=== PATIENT | female | born 1960 | race Caucasian/White ===

== ENCOUNTER 2022-08-01 12:05 | Outpatient (REF) | payer OTHER, SELFPAY ==
--- NOTE | ~2022-08-01 | XR_ITS ---
EXAMINATION: XR KNEE, RIGHT CLINICAL INFORMATION: Right knee pain and swelling COMPARISON: None available. TECHNIQUE: Four views of the right knee. FINDINGS: Prosthetic components of the right total knee arthroplasty are appropriately aligned without periprosthetic fracture or lucency. No component migration. No joint effusion. XR/XR knee RT 4V IMPRESSION: Appropriate alignment of the right total knee arthroplasty without evidence of complications.
== END 2022-08-01 12:06 | disposition home or self-care (01) ==
LOC: HO.HMGCX 12:05
PROVIDERS: PCP Internal Medicine; Visit Provider Internal Medicine
DX: M25.561 Pain in right knee (principal)
CPT/HCPCS: 73564

== ENCOUNTER 2022-09-09 01:19 | Emergency (ER) | payer OTHER, SELFPAY ==
--- NOTE | ~2022-09-09 | XR_ITS ---
EXAMINATION: XR WRIST, LEFT CLINICAL INFORMATION: Acute left wrist pain COMPARISON: None available. TECHNIQUE: PA, lateral, and oblique views of the left wrist. FINDINGS: No fracture or dislocation. The carpal rows are well aligned. Joint spaces are maintained. Small osteophytes of the first carpometacarpal joint. Soft tissues appear unremarkable. XR/XR wrist LT min 3V IMPRESSION: Mild degenerative change at the first carpometacarpal joint.
[2022-09-09 01:38] VITALS: BP 121/65; PULSE 72; RESP 18; TEMP 36.7; O2SAT 98; BMI 35.5
[2022-09-09] MEDS: Sulfamethox/Trimeth 800/160 TABLET 1 TAB PO (01:50)
[2022-09-09] MEDS: Acetaminophen 325 MG TABLET 975 MG PO (01:50)
--- NOTE | 2022-09-09 01:58 | ED.EXTPRO ---
HPI - Extremity Problem General Chief complaint: Extremity Injury, Upper Stated complaint: Hand pain Time Seen by Provider: 09/09/22 01:23 Source: patient and family Mode of arrival: ambulatory Limitations: no limitations History of Present Illness HPI Narrative: 62-year-old female presents with left wrist pain. Pain started 3 days ago. Is on the volar aspect. The pain does not radiate. Worse with palpation and movement. There is no fall or injury. Patient was noted to have done extensive cleaning in her house prior to the swelling and redness that occurred. She has had no fevers or chills. Never had anything like this before. Denies a history of gout or pseudogout. Related Data Previous Rx's Medication Instructions Recorded sulfamethoxazole 800 1 tab PO Q12H #14 tabs 09/09/22 mg-trimethoprim 160 mg tablet (Bactrim DS) Allergies Allergy/AdvReac Type Severity Reaction Status Date / Time No Known Allergies Allergy Verified 09/09/22 01:44 Review of Systems Review of Systems: CONSTITUTIONAL: Denies weight loss, fever and chills. HEENT: Denies changes in vision and hearing. RESPIRATORY: Denies SOB and cough. CV: Denies palpitations no CP. GI: Denies abdominal pain, nausea, vomiting and diarrhea. : Denies dysuria and urinary frequency. MSK: + myalgia and joint pain. SKIN: Denies rash and pruritus. NEUROLOGICAL: Denies headache and syncope. PSYCHIATRIC: Denies recent changes in mood. Denies anxiety and depression. All other ROS are negative unless in HPI [facility] Social History Social History Alcohol intake: never Physical Exam Vital Signs: Vital Signs: Last Vital Signs Temp 98.1 F 09/09/22 01:38 Pulse 72 09/09/22 01:38 Resp 18 09/09/22 01:38 BP 121/65 09/09/22 01:38 Pulse Ox 98 09/09/22 01:38 O2 Del Method Room Air 09/09/22 01:38 BMI result Body Mass Index 35.5 GEN: Well developed, no acute distress, alert, oriented HEENT: Normocephalic, atraumatic, normal external ears, nose appears normal Eyes: Normal to appearance Neck: Supple, no lymphadenopathy Respiratory: Talks in complete sentences, no respiratory distress Extremities: No clubbing cyanosis or edema, left volar wrist and thenar eminence mild redness and swelling. There is no joint effusion patient has a slightly limited range of motion secondary to pain and discomfort. Neurologic: No focal neurologic deficits, cranial nerves 2-12 intact, gait normal Skin: No rash Course Course Course Narrative: Patient presents with acute left wrist pain. The x-ray was negative for fracture. There is no significant degenerative changes. Patient received Tylenol for pain, Bactrim for antibiotic. He will be discharged on antibiotics for possible cellulitis. She can follow up with primary care provider in 2-3 days. Medications Administered Discontinued Medications Generic Name Dose Route Start Last Admin Trade Name Freq PRN Reason Stop Dose Admin Acetaminophen 975 mg 09/09/22 01:41 09/09/22 01:50 Acetaminophen 325 Mg Tablet PO 09/09/22 01:42 975 mg ONCE ONE Administration Trimethoprim/Sulfamethoxazole 1 tab 09/09/22 01:41 09/09/22 01:50 Sulfamethox/Trimeth 800/160 Tablet PO 09/09/22 01:42 1 tab ONCE ONE Administration Medical Decision Making Medical Decision Making [facility] Narrative: Patient presents with acute left wrist pain. Examination revealed redness and swelling tenderness the volar aspect of the left wrist including the thenar eminence. There is no joint effusion. She had range of motion but was slightly limited to pain. She is neurovascular intact. Will obtain an x-ray to rule out any traumatic injury. Suspect cellulitis. Doubt septic arthritis, gout, pseudogout or other inflammatory arthropathies. Will provide patient with Tylenol, antibiotics and an x-ray. Differential Diagnosis Differential Diagnoses: The differential diagnosis associated with the presentation includes (See above) Independent Interpretation I performed an independent interpretation of an: Plain X-Ray (Left wrist no acute traumatic injury.) Independent Historian Clinical information obtained from an independent historian. History obtained from or confirmed by: Other (Family member) Prescription Management I considered prescription management with: Pain Medication Chronic Conditions Patient?s care impacted by: Diabetes Discharge Plan Discharge Clinical Impression: Acute wrist pain, Cellulitis Patient Disposition: Home, Self-Care Instructions: Wrist Injury (ED), Cellulitis (ED) Additional Instructions: Tylenol 1000 mg every 6 hours as needed for pain and/or ibuprofen 400 mg every 6 hours as needed for pain. Prescriptions: New sulfamethoxazole-trimethoprim [Bactrim DS] 800-160 mg tablet 1 tab PO Q12H Qty: 14 0RF Referrals: Ronni Herrera MD [Primary Care Provider] - 2 days
== END 2022-09-09 02:20 | disposition home or self-care (01) ==
PROVIDERS: Emergency Provider Emergency Medicine; PCP Internal Medicine
DX: M25.532 Pain in left wrist (principal); L03.114 Cellulitis of left upper limb
CPT/HCPCS: 29125; 73110; 99284

== ENCOUNTER 2022-10-19 09:13 | Outpatient (REF) | payer OTHER, SELFPAY ==
--- NOTE | ~2022-10-19 | FL_ITS ---
EXAMINATION: Barium swallow CLINICAL INFORMATION: Dysphagia COMPARISON: None. TECHNIQUE: Barium swallow was performed using thin and thick barium and effervescent granules. Barium tablet was also administered. FINDINGS: The swallowing mechanism is normal. No aspiration or penetration is seen. Esophageal motility is normal. There is gastroesophageal reflux. There is a small sliding-type hiatal hernia. There is mucosal irregularity of the distal esophagus questionable for mild esophagitis. No mass or stricture is seen. Barium tablet passed freely into the esophagus. FL/FL barium swallow with air IMPRESSION: Significant gastroesophageal reflux and question mild esophagitis of the distal esophagus. Small sliding-type hiatal hernia.
== END 2022-10-19 09:14 | disposition home or self-care (01) ==
LOC: HO.XRAY 09:13
PROVIDERS: PCP Internal Medicine; Visit Provider Internal Medicine
DX: K21.9 Gastro-esophageal reflux disease without esophagitis (principal)
CPT/HCPCS: 74221

== ENCOUNTER → 2022-10-19 09:15 | Outpatient (BNV) | payer OTHER, SELFPAY | PROVIDERS: PCP Internal Medicine; Visit Provider Radiology Diagnostic Radiology | DX: K21.9 Gastro-esophageal reflux disease without esophagitis (principal) | CPT/HCPCS: 74221 ==

== ENCOUNTER 2022-11-08 10:04 | Outpatient (REF) | payer OTHER, SELFPAY ==
[2022-11-08 12:09] LABS: Estimated Average Glucose 126 mg/dL
== END 2022-11-08 10:05 | disposition home or self-care (01) ==
LOC: HO.LAB 10:04
PROVIDERS: PCP Internal Medicine; Visit Provider Internal Medicine
DX: E11.9 Type 2 diabetes mellitus without complications (principal)
CPT/HCPCS: 36415; 83036

== ENCOUNTER 2023-02-21 09:05 | Outpatient (REF) | payer OTHER, SELFPAY ==
[2023-02-21 09:55] LABS: Estimated Average Glucose 128 mg/dL; Hemoglobin A1c % 6.1 % (<6.0)
== END 2023-02-21 09:06 | disposition home or self-care (01) ==
LOC: HO.LAB 09:05
PROVIDERS: PCP Internal Medicine; Visit Provider Internal Medicine
DX: E11.9 Type 2 diabetes mellitus without complications (principal)
CPT/HCPCS: 36415; 83036

== ENCOUNTER 2023-03-05 11:56 | Outpatient (REF) | payer OTHER, SELFPAY ==
--- NOTE | ~2023-03-05 | XR_ITS ---
EXAMINATION: XR SHOULDER, LEFT CLINICAL INFORMATION: Pain. COMPARISON: None available. TECHNIQUE: AP external rotation, Grashey, scapular Y, and axillary views of the left shoulder. FINDINGS: Bony alignment and mineralization are normal. The glenohumeral joint is intact and shows mild peripheral osteophyte formation. The acromioclavicular and coracoclavicular intervals are normal. A distal acromial undersurface osteophyte is seen, and there is cortical irregularity of the greater tuberosity of the proximal left humerus. No fracture or dislocation is seen. There is no abnormal soft tissue calcification or foreign body. No left pneumothorax is seen. XR/XR shoulder LT min 2V IMPRESSION: 1. There is mild osteoarthritic change of the left glenohumeral joint. 2. Findings suggest possible left rotator cuff impingement, without johan calcific tendinitis noted.
--- NOTE | ~2023-03-05 | XR_ITS ---
EXAMINATION: XR ELBOW, LEFT CLINICAL INFORMATION: Pain. COMPARISON: None available. TECHNIQUE: AP, lateral, and oblique views of the left elbow. FINDINGS: The bones and soft tissues are normal. No fracture or joint effusion. Alignment is anatomic. Joint spaces are maintained. XR/XR elbow LT 2V IMPRESSION: Normal left elbow.
== END 2023-03-05 11:57 | disposition home or self-care (01) ==
LOC: HO.XRAY 11:56
PROVIDERS: Visit Provider Internal Medicine
DX: M25.512 Pain in left shoulder (principal); M25.522 Pain in left elbow
CPT/HCPCS: 73030; 73070

== ENCOUNTER 2023-05-20 09:04 | Outpatient (AMB) | payer MEDICARE, MEDICAID, SELFPAY ==
--- NOTE | 2023-05-20 09:15 | MHC.OFFVIS ---
Intake Vital Signs 05/20/23 09:16 Height 4 ft 10 in Weight 189 lb BMI 39.5 Intake Visit Reasons: N/P Rotator Cuff impingement- Left Intake Note: Sharita 63 year old -- hand dominant female presents today as a new patient for an evaluation of left shoulder. Patient reports?pain and difficult when move or tried put hands up, started 3 months ago, pt tried Naproxen 500 mg for pain, patch lidocaine and no help with symptoms. 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 She currently states she has pain in her left shoulder which is aggravated at night and with movement and overhead reaching. She has tried naproxen and lidocaine patches which did not provide her any relief. She has not had any previous injury. She has a history of diabetes. Her last HbA1c was 6.1%. [facility] Family History Father Cancer of lung Social History (Updated 05/20/23 @ 09:24 by Felicita Santos MA) Household Members: Family Housing: Apartment Patient Tobacco Use Status: Never used Tobacco Review of Systems Const All systems reviewed & are unremarkable except as noted in HPI and below Physical Exam Vital Signs: BMI result Body Mass Index 39.5 Const General: cooperative, healthy appearing, comfortable, no acute distress, well developed and alert Orientation/consciousness: patient oriented x3 HEENT Head: Yes normal to inspection, Yes normocephalic and Yes atraumatic Eyes General: appearance normal, both eyes and all related structures Resp Effort & Inspection: normal respiratory effort and able to speak in complete sentences Cardio Rate: regular rate Peripheral pulses: Peripheral pulses 2+ throughout GI Palpation (GI): Soft to palpation Skin Lesions: no lesions Rashes: no rashes Neuro General: patient oriented x3 Extrem Other: Left shoulder normal to inspection. Tenderness over the bicipital groove and along the deltoid region of the shoulder. Forward flexion to 175, external rotation to 90, internal rotation to S1. 5/5 RTC strength. Negative Guan and cross body abduction. NVI. Office Procedures Joint Injection/Drain Joint Injection/Drain Primary Site: left shoulder Prep: site was prepped using aseptic technique, ethochloride spray was applied and injection warnings given Injected: 40 mg of, DepoMedrol, with 8 mL of, 1% plain lidocaine and in the subcromial space Approach Used: posterolateral Procedure: The patient tolerated the procedure well and there was some relief with the local anesthesia Coding 73139 - Glenohumeral/Tronchanteric Bursa/Intraarticular Procedure code (CPT) selection complete Results Reviewed Results Reviewed: xrays of the left shoulder 1. There is mild osteoarthritic change of the left glenohumeral joint. 2. Findings suggest possible left rotator cuff impingement, without johan calcific tendinitis noted. Assessment & Plan Assessment & Plan (1) Tendonitis of left rotator cuff: Code(s): M75.82 - Other shoulder lesions, left shoulder Plan We discussed options today which include steroid injection. They did consent to move forward with the left shoulder injection, which was tolerated well. I recommended rest, ice and elevation and OTC anti-inflammatories PRN for discomfort. We also discussed their diabetes and the effect the steroid can have on their blood glucose levels; therefore, they will continue to monitor these very closely over the next 72 hours. If there are any concerns, they should report to the ED immediately. Orders: Orders PT Evaluation and Treatment Today M75.82 - Other shoulder lesions, left shoulder Medications: Discontinued sulfamethoxazole-trimethoprim 800-160 mg (Bactrim DS) Discontinued Reason: Patient Completed Course 1 tab PO Q12H 14 tabs 0RF Patient Instructions: Scribed for Shelia Yip PA-C, by Beck Thompson senior medical transcriptionist, on 05/20/2023 at 9:30 AM ZEFERINO. Shelia Blue PA-C, have personally reviewed and agree with the information entered by the scribe. Coding Level of Care Code Est Pt Level 3 (22202) Diagnoses Tendonitis of left rotator cuff M75.82 CPT Codes Coding - Joint 7: 90710 - Glenohumeral/Tronchanteric Bursa/Intraarticular ([id number])
[2023-05-20 09:16] VITALS: BMI 39.5
== END 2023-05-20 13:21 | disposition home or self-care (01) ==
PROVIDERS: PCP Internal Medicine; Visit Provider Physician Assistant
DX: M75.82 Other shoulder lesions, left shoulder (principal)
CPT/HCPCS: 20610; 99214

== ENCOUNTER → 2023-05-20 09:04 | Outpatient (BNVA) | payer MEDICARE, MEDICAID, SELFPAY | PROVIDERS: PCP Internal Medicine; Visit Provider Physician Assistant | DX: M75.82 Other shoulder lesions, left shoulder (principal); E11.9 Type 2 diabetes mellitus without complications | CPT/HCPCS: 20610; 99212; J1010; J1020 ==

== ENCOUNTER 2023-06-19 07:00 | Outpatient (RCR) | payer MEDICARE, MEDICAID, OTHER, SELFPAY ==
--- NOTE | 2023-06-06 13:43 | MHC.PT.EP ---
[facility] [place] Office [place] Office [place] Office [address] [phone] F: [phone] F: [phone] F: [phone] F: [phone] Physical Therapy Plan of Care Date of Evaluation: 06/06/23 Date of Surgery: Diagnosis: LEFT SHOULDER LESION-> ROM, RTC PERISCAP STABILIZATION Assessment: 63 YO FEMALE REF TO PT FOR PROGRESSIVE Lt SH PAIN- SHE AMB W A W/WALKER DUE TO H/O Rt TKA. HER SON IS HER [employer] BOARDS, 35 HRS/WK- ASSISTING W DRESSING/MEALS/HOUSECHORES. THE Pt HAS DECR POST RC/ SCAP STRENGTH , LIMITED AROM Lt SHOULDER, DECR CERV AROM DUE TO SOFT TISSUE RESTRICTION, DCER POSTURAL AWARENESS, AND Lt JOHNNIE GH PAIN. SHE IS LIMITED W ADLs REQ PAULA UEs ASSIST OR OVERHEAD TASKS. SHE WOULD BENEFIT FROM PT TO ADDRESS THE ABOVE FINDINGS, DEV A HEP, AND IMPROVE FUNCTIONAL MOB. Frequency and Duration: The patient will be seen 2x WK x 4 WKS Short Term Goals: *DECR Lt SH / CERV PAIN TO 2-3/10 *Pt IMPROVE Lt SH AND CERV AROM *INITIATE HEP *ACTIVATE SCAP MM Fdc Goals: *Pt AND HER [employer] BO[employer]DS INDEP W HEP AND SELF-SX MGMT TECHN *Pt ACHIEVE WFL AROM Lt SH *Pt INCREASE FUNCTIONAL MOB YAKELIN EVIDENT W IMPROVED SPADI (117/130 AT EVAL) *IMPROVE Lt SH COMPLEX STRENGTH Treatment Plan: Modalities to reduce pain, spasms and effusion. Manual therapy to restore motion and function. Therapeutic exercise to improve strength and flexibility. Neuromuscular re-education for posture and balance. Therapeutic activities to return to functional activities of daily living. Electronically signed by: JUDITH GARZA,PT Please sign and return to therapist. Thank you for your referral.
== END 2023-09-04 15:19 | disposition home or self-care (01) ==
LOC: HO.PT 07:00
PROVIDERS: PCP Internal Medicine; Visit Provider Physician Assistant
DX: M75.82 Other shoulder lesions, left shoulder (principal)
CPT/HCPCS: 97140; 97162; 97530

== ENCOUNTER 2023-09-11 08:11 | Outpatient (AMB) | payer OTHER, SELFPAY ==
[2023-09-11 08:40] VITALS: BP 111/53; PULSE 68; BMI 40.9
--- NOTE | 2023-09-11 08:40 | A.OFFVIS_ITS ---
Vital Signs 3 09/11/23 08:40 Height 4 ft 10 in Weight 195 lb 12.328 oz BMI 40.9 BP 111/53 L Blood Pressure Location Lt brachial Position Sitting Pulse 68 Intake Visit Reasons: Epigastric pain Intake Note: Patient in office today as a new patient for epigastric pain. CC: Patient states that approximately 5 years ago she had EGD and Colonoscopy done in [place]. She states that at that time she was found to be positive to H pylori and was treated for it. She c/o burning and discomfort after eating certain foods. 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 She is referred by Ronni bond of [facility]. PMX Diabetes hypertension Peripheral neuropathy Unstable gait Chronic low back pain GERD * SURGICAL HISTORY Colonoscopy/EGD [place] 5 years ago Rt TKR * ALLERGIES:NKDA * MEDITECH LABS: No relevant labs BARIUM SWALLOW 10/19/22 FINDINGS: The swallowing mechanism is normal. No aspiration or penetration is seen. Esophageal motility is normal. There is gastroesophageal reflux. There is a small sliding-type hiatal hernia. There is mucosal irregularity of the distal esophagus questionable for mild esophagitis. No mass or stricture is seen. Barium tablet passed freely into the esophagus. FL/FL barium swallow with air IMPRESSION: Significant gastroesophageal reflux and question mild esophagitis of the distal esophagus. Small sliding-type hiatal hernia. TODAY'S VISIT Uzbek #kael Muller translates per pt request. The problem started about 7-8 mos ago. It it a burning sensation in the midline upper abdomen gastric area. It is worse first thing in the am. She is on pantoprazole 40mg bid and she takes the second dose at 5-6pm. It is intermittent and and occurs 1-2 times a week. She had an EGD/colonoscopy in [place] and she had HP gastritis and was txed with abx; but they did not check for eradication. She is moving her bowels well. she can not ID any medication changes, illness etc the preceded this. NO FHX of CRC or polyps or stomach cancer; she does not think they found polyps on her last colonoscopy. I suggest she try moving her last dose of pantoprazole to later in the night. Will get HP stool, general labs, US, GES. Consider if EGD repeat needed. ROV 8 weeks. [facility] Surgical History (Updated 09/11/23 @ 10:07 by BABAR Byrd) Status post total left knee replacement H/O colonoscopy History of esophagogastroduodenoscopy (EGD) Family History Father Cancer of lung Social History Household Members: Family Housing: Apartment Alcohol intake: former Comment: occasionally in the past Patient Tobacco Use Status: Never used Tobacco Review of Systems Const Denies fatigue, Denies fever(s), Denies night sweats, Denies poor appetite and Denies weight loss ENT Reports Normal hearing present, Denies dental pain, Denies dysphagia, Denies hearing loss, Denies mouth pain, Denies odynophagia, Denies throat swelling, Denies tongue swelling and Reports other (Dentition adequate) Card Reports no additional complaints Resp Reports no additional complaints GI Details: Reports abdominal pain, Denies melena, Denies bloating, Denies hematochezia, Denies constipation, Denies GI cramping, Denies dysphagia, Denies excessive flatus, Denies early satiety, Reports heartburn, Denies diarrhea, Denies nausea, Denies odynophagia, Denies vomiting and Denies hematemesis Musc Reports abnormal gait and Reports back pain Skin/Breast Denies pruritus, Denies lesions, Denies rash and Denies jaundice Neuro Reports Normal hearing present, Denies Abnormal speech present, Reports abnormal gait and Reports burning sensations Endo Denies fatigue Aller/Immun Denies throat swelling and Denies tongue swelling Physical Exam Vital Signs: Last Vital Signs Pulse 68 09/11/23 08:40 BP 111/53 L 09/11/23 08:40 BMI result Body Mass Index 40.9 Const General: cooperative, no acute distress, well developed and well groomed Nutritional Appearance: well nourished and obese morbidly obese Orientation/consciousness: oriented to person, oriented to place and oriented to time Limitations: language barrier and ambulation with walker HEENT Head: Yes normocephalic and Yes atraumatic Eyes General: appearance normal, both eyes and all related structures Pupils: Equal, round and reactive pupils present Neck Neck: Yes normal visual inspection and Yes no lymphadenopathy Thyroid: Thyroid normal Resp Effort & Inspection: normal respiratory effort and able to speak in complete sentences Auscultation: clear to auscultation bilaterally Cardio Rate: regular rate Rhythm: regular rhythm Heart sounds: Normal, physiologic split S2 sound present Peripheral pulses: radial pulses present and posterior tibial pulses present GI Inspection: No distended, Yes Abdominal panniculus present and Yes obesity Palpation (GI): Soft to palpation, nontender, no guarding, not rigid and No hepatosplenomegaly present Percussion: Yes normal to percussion Auscultation: normal bowel sounds Rectal Exam - Female: deferred Skin General skin exam: no rashes or lesions noted, turgor normal, skin not dry, no jaundice, No spider nevi and no striae Rashes: no rashes Nails: normal Neuro General: oriented to person, oriented to place and oriented to time Cranial nerves: Yes Equal, round and reactive pupils present and Yes Normal hearing present Speech: No Abnormal speech present Extrem General: Yes normal to inspection, No clubbing, No cyanosis and No edema Elbow/forearm/wrist images: 2 1. Surgical scar Psych Appearance: grossly normal and well kempt Mental Status: mental status grossly normal Speech and movement: Normal speech and movement present Affect: normal affect Attitude: cooperative Thought process: Normal thought process present and not confabulating Thought content: Normal thought content present Insight: Limited insight present (Psych) Judgement: Limited judgement present (Psych) Assessment & Plan Assessment & Plan (1) Upper abdominal pain: Code(s): R10.10 - Upper abdominal pain, unspecified Category: Medical (2) History of Helicobacter pylori infection: Code(s): Z86.19 - Personal history of other infectious and parasitic diseases Category: Medical (3) GERD (gastroesophageal reflux disease): Code(s): K21.9 - Gastro-esophageal reflux disease without esophagitis Category: Medical Plan Uzbek #kael Muller translates per pt request. The problem started about 7-8 mos ago. It it a burning sensation in the midline upper abdomen gastric area. It is worse first thing in the am. She is on pantoprazole 40mg bid and she takes the second dose at 5-6pm. It is intermittent and and occurs 1-2 times a week. I note that she has a prescription for Reglan 10 mg but she never took it because she ?read about side effects she did not like.? She is willing to retry this if necessary but her symptoms are not terribly convincing for severe gastroparesis. I think we should get a gastric emptying study before deciding on this. She had an EGD/colonoscopy in [place] and she had HP gastritis and was txed with abx; but they did not check for eradication. She is moving her bowels well. she can not ID any medication changes, illness etc the preceded this. NO FHX of CRC or polyps or stomach cancer; she does not think they found polyps on her last colonoscopy. I suggest she try moving her last dose of pantoprazole to later in the night. Will get HP stool, general labs, US, GES. Consider if EGD repeat needed. ROV 8 weeks. Orders: Orders 2 NM gastric emptying study Today R10.10 - Upper abdominal pain, unspecified Complete Blood Count Auto Diff Today R10.10 - Upper abdominal pain, unspecified US abdomen complete Today R10.10 - Upper abdominal pain, unspecified H pylori Ag Stool Today R10.10 - Upper abdominal pain, unspecified Comprehensive Met. Panel Today R10.10 - Upper abdominal pain, unspecified Coding Level of Care Code New Pt Level 3 (62079) Diagnoses Upper abdominal pain R10.10 History of Helicobacter pylori infection Z86.19 GERD (gastroesophageal reflux disease) K21.9
== END 2023-09-11 09:45 | disposition home or self-care (01) ==
PROVIDERS: PCP Internal Medicine; Visit Provider Nurse Practitioner
DX: R10.10 Upper abdominal pain, unspecified (principal); Z86.19 Personal history of other infectious and parasitic diseases; K21.9 Gastro-esophageal reflux disease without esophagitis
CPT/HCPCS: 99203

== ENCOUNTER → 2023-09-11 08:11 | Outpatient (BNVA) | payer OTHER, SELFPAY | PROVIDERS: PCP Internal Medicine; Visit Provider Nurse Practitioner | DX: R10.10 Upper abdominal pain, unspecified (principal); K21.9 Gastro-esophageal reflux disease without esophagitis; Z86.19 Personal history of other infectious and parasitic diseases | CPT/HCPCS: 99202 ==

== ENCOUNTER 2023-09-19 07:45 | Outpatient (REF) | payer OTHER, SELFPAY ==
--- NOTE | ~2023-09-19 | US_ITS ---
EXAMINATION: US ABDOMEN COMPLETE CLINICAL INFORMATION: Upper abdominal pain, unspecified. COMPARISON: None available. TECHNIQUE: Real-time imaging of the abdominal viscera. Severely limited visualization due to bowel gas and body habitus. FINDINGS: PANCREAS: Limited visualization of pancreatic tail and head. Imaged portion of pancreatic body is unremarkable. ABDOMINAL AORTA: The proximal, mid, and distal segments are normal in caliber. INFERIOR VENA CAVA: Visualized portions are normal. LIVER: Hepatomegaly, 17.2 cm. Increased hepatic parenchymal heterogeneity and echogenicity could be associated with hepatocellular disease/hepatic steatosis and substantially limits visualization. Correlation with liver function tests and clinical exam recommended to determine further management. GALLBLADDER: Sludge in the fundal aspect of the gallbladder. Cholelithiasis. No gallbladder wall thickening. COMMON BILE DUCT: Normal in caliber measuring 0.8 cm in diameter. RIGHT KIDNEY: No hydronephrosis. No renal calculi. Limited visualization. The kidney measures 9.9 cm in maximum dimension. LEFT KIDNEY: No hydronephrosis. No renal calculi. Limited visualization. The kidney measures 10.1 cm in maximum dimension. SPLEEN: Normal. The spleen measures 9.2 cm in maximum dimension. FREE FLUID: None. US/US abdomen complete IMPRESSION: 1. Hepatomegaly, 17.2 cm. Increased hepatic parenchymal heterogeneity and echogenicity could be associated with hepatocellular disease/hepatic steatosis and substantially limits visualization. Correlation with liver function tests and clinical exam recommended to determine further management. 2. Sludge in the fundal aspect of the gallbladder. Cholelithiasis. No gallbladder wall thickening.
== END 2023-09-19 07:46 | disposition home or self-care (01) ==
LOC: HO.US 07:45
PROVIDERS: PCP Internal Medicine; Visit Provider Nurse Practitioner
DX: R10.10 Upper abdominal pain, unspecified (principal)
CPT/HCPCS: 76700

== ENCOUNTER 2023-09-24 11:50 | Outpatient (REF) | payer OTHER, SELFPAY ==
[2023-09-24 12:07] LABS: MANUAL DIFF FLAG NO
[2023-09-24 12:48] LABS: Basophils Absolute Auto 0.1 X10*3/uL (0.0-0.2); Basophils Percent Auto 0.7 % (0-2); Eosinophils Absolute Auto 0.2 X10*3/uL (0.0-0.4); Hematocrit 38.6 % (37.0-47.0); Hemoglobin 12.8 g/dl (12.0-16.0); Imm Gran Abs Auto 0.01 X10*3/uL (0.00-0.03); Imm Gran Pct Auto 0.1 % (0.0-0.4); Lymphocytes Absolute Auto 2.1 X10*3/uL (1.2-4.9); Lymphocytes Percent Auto 25.5 % (20-40); Mean Corpuscular HGB Conc 33.2 g/dl (31.0-35.0); Mean Corpuscular Hemoglobin 30.5 pg (27.0-33.0); Mean Corpuscular Volume 91.9 fL (80.0-98.0); Mean Platelet Volume 10.5 fL (9.4-12.3); Monocytes Absolute Auto 0.5 X10*3/uL (0.1-1.2); Monocytes Percent Auto 5.9 % (2-11); Neutrophils Absolute Auto 5.3 x10*3/uL (2.0-8.3); Neutrophils Percent Auto 65.8 % (45-73); Platelet Count 275 X10*3/uL (160-400); Red Cell Distribution Width 12.5 % (11.0-16.0); White Blood Count 8.1 X10*3/uL (4.8-10.8)
[2023-09-24 14:13] LABS: Alanine Aminotransferase 15 U/L (0-31); Albumin Level 3.8 g/dL (3.5-5.0); Alkaline Phosphatase 86 U/L (39-117); Anion Gap 13 (12-20); Aspartate Amino Transferase 14 U/L (5-31); Bilirubin Total 0.4 mg/dL (0.0-1.0); Blood Urea Nitrogen 18 mg/dL (9-16); Calcium 9.6 mg/dL (8.4-10.2); Carbon Dioxide 25 mmol/L (22-29); Chloride 107 mmol/L (96-108); Estimated Glomerular Filt Rate > 60; Glucose Random 113 mg/dL (60-115); Potassium 3.7 mmol/L (3.3-5.1); Sodium 141 mmol/L (135-145); Total Protein 7.6 g/dL (6.5-8.0)
== END 2023-09-24 11:51 | disposition home or self-care (01) ==
LOC: HO.LAB 11:50
PROVIDERS: PCP Internal Medicine; Visit Provider Nurse Practitioner
DX: R10.10 Upper abdominal pain, unspecified (principal)
CPT/HCPCS: 36415; 80053; 85025

== ENCOUNTER 2023-10-03 13:54 | Outpatient (REF) | payer OTHER, SELFPAY | END 2023-10-03 13:55 | disposition home or self-care (01) | LOC: HO.LNP 13:54 | PROVIDERS: Visit Provider Nurse Practitioner | DX: R10.10 Upper abdominal pain, unspecified (principal) | CPT/HCPCS: 87338 ==

== ENCOUNTER 2023-11-12 09:00 | Outpatient (AMB) | payer OTHER, SELFPAY ==
[2023-11-12 09:09] VITALS: BP 120/69; PULSE 69; BMI 40.5
--- NOTE | 2023-11-12 09:09 | A.OFFVIS_ITS ---
Vital Signs 11/12/23 09:09 Height 4 ft 10 in Weight 194 lb 0.108 oz BMI 40.5 BP 120/69 Blood Pressure Location Lt brachial Position Sitting Pulse 69 Intake Visit Reasons: 8 weeks upper abd pain Intake Note: Radha presents to in office follow up of US and labs. CC: Patient reports doing well and now taking only one pantoprazole daily. She reports upset stomach with some drinks and foods. Denies other GI symptoms. 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: Yes Boat Outboard Engine Mechanic Name: son Accompanied by: Son Allergies No Known Allergies Allergy (Verified 11/12/23 09:18) HPI HPI 8 weeks upper abd pain: Details: Assessment & Plan (1) Upper abdominal pain: Code(s): R10.10 - Upper abdominal pain, unspecified Category: Medical (2) History of Helicobacter pylori infection: Code(s): Z86.19 - Personal history of other infectious and parasitic diseases Category: Medical (3) GERD (gastroesophageal reflux disease): Code(s): K21.9 - Gastro-esophageal reflux disease without esophagitis Category: Medical Plan [place] Citizen #kael Muller translates per pt request. The problem started about 7-8 mos ago. It it a burning sensation in the midline upper abdomen gastric area. It is worse first thing in the am. She is on pantoprazole 40mg bid and she takes the second dose at 5-6pm. It is intermittent and and occurs 1-2 times a week. I note that she has a prescription for Reglan 10 mg but she never took it because she ?read about side effects she did not like.? She is willing to retry this if necessary but her symptoms are not terribly convincing for severe gastroparesis. I think we should get a gastric emptying study before deciding on this. She had an EGD/colonoscopy in [place] and she had HP gastritis and was txed with abx; but they did not check for eradication. She is moving her bowels well. she can not ID any medication changes, illness etc the preceded this. NO FHX of CRC or polyps or stomach cancer; she does not think they found polyps on her last colonoscopy. I suggest she try moving her last dose of pantoprazole to later in the night. Will get HP stool, general labs, US, GES. Consider if EGD repeat needed. ROV 8 weeks. Orders: Orders NM gastric emptying study Today R10.10 - Upper abdominal pain, unspecified Complete Blood Count Auto Diff Today R10.10 - Upper abdominal pain, unspecified US abdomen complete Today R10.10 - Upper abdominal pain, unspecified H pylori Ag Stool Today R10.10 - Upper abdominal pain, unspecified Comprehensive Met. Panel Today R10.10 - Upper abdominal pain, unspecified LABS: Laboratory Tests 09/24/23 10/03/23 12:06 12:30 WBC 8.1 Hgb 12.8 Hct 38.6 Plt Count 275 Estimated GFR > 60 Total Bilirubin 0.4 AST 14 ALT 15 Alkaline Phosphatase 86 Stool H. pylori Ag neg ULTRASOUND OF THE ABDOMEN 09/23/23 FINDINGS: PANCREAS: Limited visualization of pancreatic tail and head. Imaged portion of pancreatic body is unremarkable. ABDOMINAL AORTA: The proximal, mid, and distal segments are normal in caliber. INFERIOR VENA CAVA: Visualized portions are normal. LIVER: Hepatomegaly, 17.2 cm. Increased hepatic parenchymal heterogeneity and echogenicity could be associated with hepatocellular disease/hepatic steatosis and substantially limits visualization. Correlation with liver function tests and clinical exam recommended to determine further management. GALLBLADDER: Sludge in the fundal aspect of the gallbladder. Cholelithiasis. No gallbladder wall thickening. COMMON BILE DUCT: Normal in caliber measuring 0.8 cm in diameter. RIGHT KIDNEY: No hydronephrosis. No renal calculi. Limited visualization. The kidney measures 9.9 cm in maximum dimension. LEFT KIDNEY: No hydronephrosis. No renal calculi. Limited visualization. The kidney measures 10.1 cm in maximum dimension. SPLEEN: Normal. The spleen measures 9.2 cm in maximum dimension. FREE FLUID: None. US/US abdomen complete IMPRESSION: 1. Hepatomegaly, 17.2 cm. Increased hepatic parenchymal heterogeneity and echogenicity could be associated with hepatocellular disease/hepatic steatosis and substantially limits visualization. Correlation with liver function tests and clinical exam recommended to determine further management. 2. Sludge in the fundal aspect of the gallbladder. Cholelithiasis. No gallbladder wall thickening. * GES cancelling TODAY'S VISIT [place] Citizen # son translates per patient request. he is on pantoprazole 40mg bid and she takes the second dose at 5-6. She actually went down to 1 pantoprazole a day and is feeling well. She is not taking relgan. She never heard re: the GES. At point since she is doing well I think will cancel it. We review her ultrasound and labs and I did let her know that she has gallstones and the symptoms that it could cause although it does not always cause these symptoms. She was counseled to try to avoid high fat meals but to let me know if she has ongoing heartburn or dyspepsia or even abdominal pain that does not resolve with her usual medications. Of course if the pain is severe she is counseled she may need to present to the ER. Warning signs were discussed that would necessitate an ER visit. We also discussed a HIDA scan which we could do in the future but I think given her lack of symptoms there would be no point in 8 at this time. Return office visit in 6 months [facility] Surgical History Status post total left knee replacement H/O colonoscopy History of esophagogastroduodenoscopy (EGD) Family History Father Cancer of lung Social History Household Members: Family Housing: Apartment Alcohol intake: former Comment: occasionally in the past Patient Tobacco Use Status: Never used Tobacco Review of Systems Const Denies fatigue, Denies fever(s), Denies night sweats, Denies poor appetite and Denies weight loss Eyes Reports requires corrective lenses ENT Reports Normal hearing present, Denies dental pain, Denies dysphagia, Denies hearing loss, Denies mouth pain, Denies odynophagia, Denies throat swelling, Denies tongue swelling and Reports other (Dentition adequate) Card Reports no additional complaints Resp Reports no additional complaints GI Details: Denies abdominal pain, Denies melena, Denies bloating, Denies hematochezia, Denies constipation, Denies GI cramping, Denies dysphagia, Denies excessive flatus, Denies early satiety, Reports heartburn, Denies diarrhea, Denies nausea, Denies odynophagia, Denies vomiting and Denies hematemesis Skin/Breast Denies pruritus, Denies lesions, Denies rash and Denies jaundice Neuro Reports Normal hearing present and Denies Abnormal speech present Endo Denies fatigue Aller/Immun Denies throat swelling and Denies tongue swelling Physical Exam Vital Signs: Last Vital Signs Pulse 69 11/12/23 09:09 BP 120/69 11/12/23 09:09 BMI result Body Mass Index 40.5 Const General: cooperative, no acute distress, well developed and well groomed Nutritional Appearance: well nourished and obese morbidly obese Orientation/consciousness: oriented to person, oriented to place and oriented to time Limitations: language barrier HEENT Head: Yes normocephalic and Yes atraumatic Eyes General: appearance normal, both eyes and all related structures Pupils: Equal, round and reactive pupils present Neck Neck: Yes normal visual inspection and Yes no lymphadenopathy Thyroid: Thyroid normal Resp Effort & Inspection: normal respiratory effort and able to speak in complete sentences Auscultation: clear to auscultation bilaterally Cardio Rate: regular rate Rhythm: regular rhythm Heart sounds: Normal, physiologic split S2 sound present Peripheral pulses: radial pulses present and posterior tibial pulses present GI Inspection: No distended, Yes Abdominal panniculus present and Yes obesity Palpation (GI): Soft to palpation, nontender, no guarding, not rigid and No hepatosplenomegaly present Percussion: Yes normal to percussion Auscultation: normal bowel sounds Rectal Exam - Female: deferred Skin General skin exam: no rashes or lesions noted, turgor normal, skin not dry, no jaundice, No spider nevi and no striae Rashes: no rashes Nails: normal Neuro General: oriented to person, oriented to place and oriented to time Cranial nerves: Yes Equal, round and reactive pupils present and Yes Normal hearing present Speech: No Abnormal speech present Extrem General: Yes normal to inspection, No clubbing, No cyanosis and No edema Psych Appearance: grossly normal and well kempt Mental Status: mental status grossly normal Speech and movement: Normal speech and movement present Affect: normal affect Attitude: cooperative Thought process: Normal thought process present and not confabulating Thought content: Normal thought content present Insight: Limited insight present (Psych) Judgement: Limited judgement present (Psych) Assessment & Plan Assessment & Plan (1) GERD (gastroesophageal reflux disease): Code(s): K21.9 - Gastro-esophageal reflux disease without esophagitis Category: Medical (2) Upper abdominal pain: Code(s): R10.10 - Upper abdominal pain, unspecified Category: Medical (3) History of Helicobacter pylori infection: Comment: 10/2023 stool antigen negative confirms eradication Code(s): Z86.19 - Personal history of other infectious and parasitic diseases Category: Medical (4) Cholelithiasis: Comment: With sludge on 10/2023 ultrasound but patient does not have symptoms at this time Code(s): K80.20 - Calculus of gallbladder without cholecystitis without obstruction Category: Medical Plan [place] Citizen # son translates per patient request. he is on pantoprazole 40mg bid and she takes the second dose at 5-6. She actually went down to 1 pantoprazole a day and is feeling well. She is not taking relgan. She never heard re: the GES. At point since she is doing well I think will cancel it. We review her ultrasound and labs and I did let her know that she has gallstones and the symptoms that it could cause although it does not always cause these symptoms. She was counseled to try to avoid high fat meals but to let me know if she has ongoing heartburn or dyspepsia or even abdominal pain that does not resolve with her usual medications. Of course if the pain is severe she is counseled she may need to present to the ER. Warning signs were discussed that would necessitate an ER visit. We also discussed a HIDA scan which we could do in the future but I think given her lack of symptoms there would be no point in 8 at this time. Return office visit in 6 months Coding Level of Care Code Est Pt Level 4 (47702) Diagnoses GERD (gastroesophageal reflux disease) K21.9 Upper abdominal pain R10.10 History of Helicobacter pylori infection Z86.19 Cholelithiasis K80.20 Time Spent (min) 39
== END 2023-11-12 10:03 | disposition home or self-care (01) ==
PROVIDERS: PCP Internal Medicine; Visit Provider Nurse Practitioner
DX: K21.9 Gastro-esophageal reflux disease without esophagitis (principal); R10.10 Upper abdominal pain, unspecified; Z86.19 Personal history of other infectious and parasitic diseases; K80.20 Calculus of gallbladder without cholecystitis without obstruction
CPT/HCPCS: 99214

== ENCOUNTER → 2023-11-12 09:00 | Outpatient (BNVA) | payer OTHER, SELFPAY | PROVIDERS: PCP Internal Medicine; Visit Provider Nurse Practitioner | DX: K21.9 Gastro-esophageal reflux disease without esophagitis (principal); R10.10 Upper abdominal pain, unspecified; K80.20 Calculus of gallbladder without cholecystitis without obstruction; Z86.19 Personal history of other infectious and parasitic diseases | CPT/HCPCS: 99212 ==

== ENCOUNTER 2024-01-07 09:37 | Outpatient (REF) | payer OTHER, SELFPAY ==
--- NOTE | ~2024-01-07 | MM_ITS ---
EXAMINATION: BONE DENSITOMETRY CLINICAL INDICATION: Post menopausal. COMPARISON: This is the patient's baseline examination. TECHNIQUE: Using a [employer] DXA System (software version: 13.1) manufactured by [employer], dual-energy x-ray absorptiometry was performed of the lumbar spine and left hip. The images are of good technical quality. Summary results are attached. FINDINGS: AP SPINE L1-L4: BMD 1.272 g/cm2, Z-score 1.7, T-score 0.8, normal. LEFT FEMUR, NECK: BMD 0.786 g/cm2, Z-score -0.8, T-score -1.8, osteopenia. LEFT FEMUR, TOTAL: BMD 0.947 g/cm2, Z-score 0.2, T-score -0.5, normal. IDENTIFIED RISK FACTORS: Rheumatoid arthritis. Renal disease. Recurrent falls. Height loss. Parental hip fracture. Secondary osteoporosis (type 1 diabetes, hyperthyroidism, early menopause). HISTORY OF FRACTURE: None listed. MEDICATIONS: None listed. MM/XR DEXA axial skeleton IMPRESSION: 1. DIAGNOSIS: Osteopenia based on the lowest T-score value of -1.8 in the femoral neck applying World Health Organization criteria. 2. 10-YEAR FRACTURE RISK PREDICTION, FRAX: Major osteoporotic fracture (clinical spine, forearm, hip or shoulder) 12.3%. Hip fracture 1.0%. 3. Treatment Recommendations: NOF guidelines recommend consideration for treatment in postmenopausal women and men age 50 and older presenting with the following: -A hip or vertebral (clinical or morphometric) fracture. -T-score less than or equal to -2.5 at the femoral neck or spine after appropriate evaluation to exclude secondary causes. -Low bone mass at the hip or spine and a 10-year fracture probability by FRAX of greater than or equal to 3% for hip fracture or greater than or equal to 20% for major osteoporotic fracture based on the [place] adapted WHO algorithm. 4. Other Recommendations: All treatment decisions require clinical judgment and consideration of individual patient factors, including patient preferences, comorbidities, previous drug use, risk factors not captured in the FRAX model (e.g. frailty, falls, vitamin D deficiency, increased bone turnover, interval significant decline in bone density) and possible under or overestimation of fracture risk by FRAX. Additional medical evaluation for secondary cause of low bone mineral density may be appropriate. FUTURE SCAN RECOMMENDATION: People with diagnosed cases of osteoporosis or at high risk for fracture should have regular bone mineral density tests. For patients eligible for Medicare, routine testing is allowed once every 2 years. The testing frequency can be increased to one year for patients who have rapidly progressing disease, those who are receiving or discontinuing medical therapy to restore bone mass, or have additional risk factors. Electronically signed by: Jonathan Mcgraw MD 01/07/2024 02:12 PM [facility] CAMACHO
== END 2024-01-07 09:38 | disposition home or self-care (01) ==
LOC: HO.MAMMO 09:37
PROVIDERS: PCP Internal Medicine; Visit Provider Internal Medicine
DX: Z12.31 Encounter for screening mammogram for malignant neoplasm of breast (principal); Z13.820 Encounter for screening for osteoporosis; Z78.0 Asymptomatic menopausal state
CPT/HCPCS: 36415; 77063; 77067; 77080; 83036

== ENCOUNTER → 2024-01-07 09:45 | Outpatient (BNV) | payer OTHER, SELFPAY | PROVIDERS: PCP Internal Medicine; Visit Provider Internal Medicine | DX: Z12.31 Encounter for screening mammogram for malignant neoplasm of breast (principal) | CPT/HCPCS: 77063; 77067 ==

== ENCOUNTER 2024-01-07 10:24 | Outpatient (REF) | payer OTHER, SELFPAY ==
[2024-01-07 11:56] LABS: Estimated Average Glucose 140 mg/dL; Hemoglobin A1c % 6.5 % (<6.0); Total Hemoglobin (HGBA1C) 3263.5544 umol/L
== END 2024-01-07 10:25 | disposition home or self-care (01) ==
LOC: HO.LAB 10:24
PROVIDERS: PCP Internal Medicine; Visit Provider Internal Medicine
DX: Z13.89 Encounter for screening for other disorder (principal)
CPT/HCPCS: 36415; 83036

== ENCOUNTER 2024-05-27 15:52 | Emergency (ER) | payer OTHER, SELFPAY ==
[2024-05-27 15:58] VITALS: BP 124/55; PULSE 71; RESP 18; TEMP 36.7; O2SAT 97; BMI 40.8
--- NOTE | 2024-05-27 16:03 | ED_ITS ---
HPI - Wound/Laceration General Chief Complaint: Wound/Laceration Stated Complaint: Toe discoloration Time Seen by Provider: 05/27/24 16:03 Source: patient, family and RN notes reviewed Mode of arrival: ambulatory Limitations: no limitations History of Present Illness ED Provider: Tanna Burgess PA-C HPI narrative: This is a 64-year-old female, with a history of diabetes, who presents emergency department with concerns for right great toe redness for the last 2 weeks. Patient denies any recent trauma or injury. Denies any pain or itching. Unsure where the redness came from. She denies any fevers or chills. No numbness tingling or weakness. No other complaints or concerns at this time. Onset (ago): week(s) Associated symptoms: none Related Data Home Medications ?Medication ?Instructions ?Recorded ?Confirmed aspirin 81 mg chewable tablet 1 tab PO DAILY 05/20/23 atorvastatin 20 mg tablet 20 mg PO DAILY 05/20/23 dulaglutide 3 mg/0.5 mL mg subcut QWEEK 05/20/23 subcutaneous pen injector (Trulicity) empagliflozin 10 mg tablet 10 mg PO QAM 05/20/23 (Jardiance) hydrochlorothiazide 25 mg tablet 25 mg PO DAILY 05/20/23 latanoprost 0.005 % eye drops 1 drp ophthalmic (eye) QPM 05/20/23 lisinopril 40 mg tablet 20 mg PO DAILY 05/20/23 lorazepam 0.5 mg tablet 0.5 mg PO TID PRN 05/20/23 losartan 50 mg tablet 50 mg PO DAILY 05/20/23 pantoprazole 40 mg tablet,delayed 40 mg PO BID 05/20/23 release gabapentin 300 mg capsule 300 mg PO TID PRN 09/11/23 insulin glargine-yfgn 100 unit/mL 20 unit subcut DAILY 09/11/23 (3 mL) subcutaneous pen naproxen 500 mg tablet 500 mg PO BID PRN 09/11/23 zolpidem 5 mg tablet 5 mg PO BEDTIME PRN 09/11/23 fluticasone propionate 50 spray intranasal 11/12/23 mcg/actuation nasal spray,suspension Previous Rx's ?Medication ?Instructions ?Recorded cephalexin 500 mg capsule 500 mg PO QID 5 days #20 caps 05/27/24 Allergies Allergy/AdvReac Type Severity Reaction Status Date / Time No Known Allergies Allergy Verified 05/27/24 15:58 Review of Systems 2 Review of Systems: Yes all other systems are reviewed and are negative Constitutional: Constitutional: Reports as per [facility] Past Medical History Surgical History Status post total left knee replacement H/O colonoscopy History of esophagogastroduodenoscopy (EGD) Family History Family History Father Cancer of lung Social History Social History Household Members: Family Housing: Apartment Alcohol intake: former Comment: occasionally in the past Patient Tobacco Use Status: Never used Tobacco Advance Directives: No Advance Directives Information Provided: No Physical Exam 2 Vital Signs: Vital Signs: Last Vital Signs Temp 98.1 F 05/27/24 16:07 Pulse 71 05/27/24 16:07 Resp 18 05/27/24 16:07 BP 124/55 L 05/27/24 16:07 Pulse Ox 97 05/27/24 16:07 O2 Del Method Room Air 05/27/24 16:07 BMI result Body Mass Index 40.8 Const: General: cooperative, comfortable and no acute distress O rientation/consciousness: patient oriented x3 Limitations: no limitations HEENT: Head: Yes normal to inspection, Yes normocephalic and Yes atraumatic Ears: hearing grossly normal bilaterally General nose exam: Normal external nose present Face and sinus: Yes normal facial exam Mouth: Normal oral and palatal mucosa present, oropharynx normal and moist mucous membranes Throat: Yes posterior oropharynx normal Eyes: General: appearance normal, both eyes and all related structures E yelids: Yes eyelids normal Conjunctivae: conjunctivae normal Sclerae: s clerae normal Pupils: Equal, round and reactive pupils present EOM: EOMs intact bilaterally Neck: Neck: Yes normal visual inspection, Yes full ROM and Yes no lymphadenopathy Lymphatic: no lymphadenopathy noted Chest: Chest palpation & inspection: normal inspection of the chest Resp: Effort & Inspection: normal respiratory effort and able to speak in complete sentences Cardio: Rate: regular rate Rhythm: regular rhythm Heart sounds: S1 normal heart sound present and S2 normal heart sound present GI: Inspection: Yes normal to inspection Skin: General skin exam: no rashes or lesions noted Trauma: no lacerations or abrasions Wounds: no wounds Neuro: General: patient oriented x3 and moves all extremities Cranial nerves: Yes Equal, round and reactive pupils present Extrem: Other: Right great toe, lateral aspect, there is a 1 mm area of ? Macule versus erythema, does earline, does not appear to be an open wound. No drainage. No surrounding erythema. Strong DP pulse. General: Yes normal to inspection Right upper extremity: normal to inspection Left upper extremity: normal to inspection Left lower extremity: normal to inspection Medical Decision Making Medical Decision Making MDM Narrative: This is a 64-year-old female who presents emergency department for evaluation of right great toe redness for the last 2 weeks. On arrival, vital signs within normal limits. She is speaking in full sentences under no acute distress. Patient with slight macule versus area of cellulitis noted to the lateral aspect. Given that she has a diabetic, will treat as possible early cellulitis however I urged the importance of following up with PCP in the next 1-2 weeks as it was unclear what is causing this, and should have close follow-up. She understands and agrees with plan. Patient discharged Differential Diagnosis Differential Diagnoses: The differential diagnosis associated with the presentation includes Cellulitis, laceration, abrasion, contact dermatitis, lesion Discharge Plan Discharge Clinical Impression: Abrasion of toe Patient Disposition: Home, Self-Care Instructions: Abrasion (ED) Additional Instructions: You were seen in the emergency department due to a dariel area on your toe. It was unclear what is causing this however we treating you with an antibiotic for precaution. Take prescribed medication as directed. Keep area clean and dry. Please keep a close eye on your symptoms. Please follow-up with the primary care physician within the next 2 weeks. Take a photo of this today as you can have documentation on whether or not this wound progresses. If any new or worsening symptoms occur including but not limited to worsening redness, swelling, please seek emergent care. Prescriptions: New cephalexin 500 mg capsule 500 mg PO QID 5 Days Qty: 20 0RF No Action atorvastatin 20 mg tablet 20 mg PO DAILY hydrochlorothiazide 25 mg tablet 25 mg PO DAILY Trulicity 3 mg/0.5 mL pen injector subcut QWEEK lisinopril 40 mg tablet 20 mg PO DAILY aspirin 81 mg tablet,chewable 1 tab PO DAILY pantoprazole 40 mg tablet,delayed release (DR/EC) 40 mg PO BID losartan 50 mg tablet 50 mg PO DAILY latanoprost 0.005 % drops 1 drp ophthalmic (eye) QPM lorazepam 0.5 mg tablet 0.5 mg PO TID PRN Jardiance 10 mg tablet 10 mg PO QAM gabapentin 300 mg capsule 300 mg PO TID PRN naproxen 500 mg tablet 500 mg PO BID PRN zolpidem 5 mg tablet 5 mg PO BEDTIME PRN insulin glargine-yfgn 100 unit/mL (3 mL) insulin pen 20 unit subcut DAILY fluticasone propionate 50 mcg/actuation spray,suspension intranasal Interventions: ED Discharge Assessment Last Done: 05/27/24 16:07 Discharge Date/Time: 05/27/24 16:23 Print Language: Chinese
[2024-05-27 16:07] VITALS: BP 124/55; PULSE 71; RESP 18; TEMP 36.7; O2SAT 97
--- OUTSIDE RECORDS SUMMARY | 2024-05-27 18:17 | XMS_ITS | Data Portability ---
Demographics Address [address] [place] [address] Home Phone Preferred Language Unknown Marital Status Unknown Episcopalian Affiliation Unknown Race Unknown Ethnic Group Unknown Author Organization [employer] Address [address] [place] [address] Care Team Providers Care Ergonomic Specialist Name Role Phone HIM RAFFI OTHER SILVIOVISHNU Young Primary Care Provider Assessment Encounter Date Assessment Date Assessment LastModified by Organization Details LastModified Time 11/05/2023 11/05/2023 I have reviewed and agree with the assessment and plan as documented by the supervisor cd area. I provided real-time medical direction for this encounter and was immediately available to provide additional phone-based assistance as needed. 63F with sinus symptoms x 1 week. No fever, mild congestion. Mild cough, no SOB or chest pain. Vitals at baseline, Exam unremarkable, lung sounds clear. Negative for COVID and Flu. Suspect mild viral upper respiratory infection, recommend nasal saline rinses and OTC medications. Red flags and return precautions discussed. paysola Not available 11/05/2023 18:01:54 03/22/2024 03/22/2024 Evaluation in the field was performed by my supervisor cd area colleague, as noted above, I provided real-time direction and supervision for this visit. This is a 63yo F requesting evaluation for 5 days of cough and congestion. Is taking NyQuil and Mucinex, cough drops, Tylenol, Vicks. Thought she had a fever one day, has not today. Is still having a cough which is what bothers her the most as well as some chest congestion. Denies any other associated sx such as NVD. No history of smoking. PE: General: Awake & alert, NAD Respiratory: CTAB. Chest rise equal bilat, no increased wob CV: Regular rate, normal peripheral perfusion Neuro: A&Ox4, no focal deficits Impression: -Upper respiratory infection -Cough Plan: -VSS, appears well. Afebrile. -poc COVID and Influenza tests negative. -Lungs clear but coughing a lot during exam. One albuterol neb treatment given with improvement. -5 days of sx, appearing well, likely viral URI -Will prescribe Tessalon Perles and an albuterol inhaler for cough. -Safe to stay at home, should f/u with PCP. Disposition: Remain at home [email or web address] Not available 03/22/2024 22:15:35 Plan of Treatment Reminders Order Date Submit Date Provider Last Modified By Organization Details Last Modified Time Details Appointments None recorded. Lab rapid SARS CoV 2 Ag, QL IA, respiratory specimen 2023 024 [facility], [address] [place] [address], [id number] 4 18:01:58 rapid flu (A+B) 2023 024 [facility], [address] [place] [address], [phone] 4 18:01:56 Referral None recorded. Procedures None recorded. Surgeries None recorded. Imaging None recorded. Medication Orders albuterol sulfate 2.5 mg/3 mL (0.083 %) solution for nebulizatio n 2024 025 [email or web address] [facility] #[id number], [address] [place], [address], 5 21:42:04 benzonatate 200 mg capsule 2024 025 [facility] #[id number], [address] [place], [address], 5 21:46:34 benzonatate 100 mg capsule 2024 025 [email or web address] [facility] #[id number], [address] [place], [address], 5 21:46:32 albuterol sulfate HFA 90 mcg/actuati on aerosol inhaler 2024 025 [facility][id number], [address] [place], [address], 5 21:46:34 Flonase Allergy Relief 50 mcg/actuati on nasal spray,suspe nsion 2023 024 [facility][id number], [address] [facility], [place], [address], 18:01:59 Patient TargetsNo targets recorded. Patient InstructionsNo instructions recorded. Reason for Referral None Reported. Results Created Date Observation Date Name Description Value Unit Range Abnormal Flag Note LastModifiedBy Organization Detail LastModifiedTime 11/05/1911/05/2023 rapid flu (A+B) Flu negati ve Not Available [facility] ed [address] [place] [address], [phone] 11/05/2023 17:59:50 11/05/1911/05/2023 rapid SARS CoV 2 Ag, QL IA, respi rator y speci men rapid SARS CoV 2 Ag, QL IA, respiratory specimen negati ve Not Available [facility] - [facility] ed [address] [place] [address], [phone] 11/05/2023 17:59:49 Result Notes None recorded. Medical Equipment None Reported. Allergies No known drug allergies Medications Name Sig Start Date Stop Date Status Note LastModified by Organization Details LastModified Time losartan 50 mg tablet TAKE 1 TABLET BY MOUTH EVERY DAY active Not Available Not Available No t Available latanoprost 0.005 % eye drops INSTILL 1 DROP EACH EYE EVERY DAY active Not Available Not Available No t Available atorvastatin 20 mg tablet TAKE 1 TABLET BY MOUTH EVERY DAY DIRECTED active Not Available Not Available No t Available albuterol sulfate 2.5 mg/3 mL (0.083 %) solution for nebulization Inhale 3 mL by nebulizatio n route. 2024 active Not Available Not Available Not Avai lable benzonatate 200 mg capsule TAKE 1 CAPSULE 3 TIMES A DAY BY ORAL ROUTE NEEDED, FOR COUGH. active Not Available Not Available No t Available hydrocodone 5 mg-acetamino phen 325 mg tablet TAKE 1 TABLET BY MOUTH THREE TIMES A DAY NEEDED FOR 7 DAYS active Not Available Not Available N ot Available lorazepam 0.5 mg tablet TAKE 1 TABLET (0.5 MG) BY ORAL ROUTE 3 TIMES PER DAY NEEDED active Not Available Not Available No t Available benzonatate 100 mg capsule Take 2 capsules by oral route. 2024 active Not Available Not Available Not Avai lable pantoprazole 40 mg tablet,delay ed release TAKE 1 TABLET BY MOUTH TWICE A DAY active Not Available Not Available No t Available gabapentin 300 mg capsule TAKE 1 CAPSULE BY MOUTH THREE TIMES A DAY active Not Available Not Available Not Available aspirin 81 mg chewable tablet TAKE 1 TABLET BY MOUTH EVERY DAY active Not Available Not Available No t Available hydrochlorot hiazide 25 mg tablet TAKE 1 TABLET BY MOUTH EVERY DAY active Not Available Not Available No t Available zolpidem 5 mg tablet TAKE 1 TABLET BY MOUTH EVERYDAY AT BEDTIME active Not Available Not Available No t Available albuterol sulfate HFA 90 mcg/actuatio n aerosol inhaler INHALE 2 PUFFS EVERY 4 HOURS. active Not Available Not Available No t Available lisinopril 40 mg tablet TAKE 1/2 TABLET BY MOUTH EVERY DAY active Not Available Not Available No t Available fluticasone propionate 50 mcg/actuatio n nasal spray,suspen jennifer SPRAY 1 SPRAY BY INTRANASAL ROUTE EVERY DAY active Not Available Not Available No t Available Enulose 10 gram/15 mL oral solution TAKE 30 ML BY MOUTH DAILY. HOLD FOR DIARRHEA active Not Available Not Available No t Available naproxen 500 mg tablet TAKE 1 TABLET BY MOUTH TWICE A DAY WITH FOOD active Not Available Not Available No t Available metocloprami de 10 mg tablet TAKE 1 TABLET BY MOUTH BEFORE EACH MEAL AND BEFORE BEDTIME active Not Available Not Available No t Available Lantus Solostar U-100 Insulin 100 unit/mL (3 mL) subcutaneous pen INJECT 20 UNITS SUBCUTANEOU SLY DAILY active Not Available Not Available No t Available Novofine 32 32 gauge x 1/4 needle USE TO INJECT INSULIN TWICE A DAY DIRECTED. active Not Available Not Available No t Available Jardiance 10 mg tablet TAKE 1 TABLET BY MOUTH EVERY MORNING active Not Available Not Available No t Available Trulicity 3 mg/0.5 mL subcutaneous pen injector INJECT 3 MG. BY SUBCUTANEOU S ROUTE ONCE WEEKLY. active Not Available Not Available No t Available insulin glargine-yfg n (U-100) 100 unit/mL (3 mL) subcutaneous pen INJECT 20 UNITS DAILY active Not Available Not Available Not Available Vitals Date Recorded Body weight Respiratory rate Heart rate Body height Body temperature Oxygen saturation Oxygen saturation in Arterial blood by Pulse oximetry Systolic blood pressure Diastolic blood pressure Provider Name and Address Organization Details Last Updated DateTime 4 88710.2 96 g 16 /min 71 /min 152.4 cm 98.2 [degF] 98 % 98 % 125 mm[Hg] 69 mm[Hg] Not Available [facility] 17:58:21 Date Recorded Respiratory rate Body temperature Body weight Body height Oxygen saturation Oxygen saturation in Arterial blood by Pulse oximetry Heart rate Systolic blood pressure Diastolic blood pressure Provider Name and Address Organization Details Last Updated DateTime 5 18 /min 98.6 [degF] 76773.8 48 g 147.32 cm 99 % 99 % 86 /min 121 mm[Hg] 83 mm[Hg] Not Available [facility] 5 21:38:58 Social History None recorded. Functional Status None recorded. Mental Status None recorded. Family History Nothing Reported. Medical History No medical history recorded. Gynecological HistoryNo gynecological history recorded. Obstetrics History GPAL:G 0 P 0 0 0 0 Past Encounters Encounter ID Performer Location Encounter Start Date Encounter Closed Date Diagnosis/Indication Diagnosis SNOMED-CT Code Diagnosis ICD10 Code Diagnosis Note [id number] Aaliyah Phelan MD [facility] [address] [place] [phone] 11/05/2023 17:58:18 11/05/2023 21:05:26 Viral upper respiratory tract infection 731990792 J06.9 [id number] Sherrell Mckeon MD [facility] - [facility] [address] [place] [phone] 03/22/2024 21:38:54 03/23/2024 15:21:47 Cough 36709426 R05.9 Health Concerns Section Related Observation LastModified by Organization Detai ls LastModified Time None Recorded Concern Status LastModified by Organization Details LastModified Time None Recorded Advance Directives Directive None Recorded Payers Encounter Date Sequence Insurance Name Policy Number Policy Capone Covered Member ID Capone Member ID Guarantor Name 11/05/2023 1 [facility] - DOS ON OR AFTER 2022 - DUAL ELIGIBLE - SENIOR LIVING OPTIONS AND ONE CARE (MEDICARE REPLACEMENT/ADV ANTAGE - HMO) Radha Camilo [id number] Radha Camilo 03/22/2024 1 [facility] [employer] - DOS ON OR AFTER 2022 - DUAL ELIGIBLE - SENIOR LIVING OPTIONS AND ONE CARE (MEDICARE REPLACEMENT/ADV ANTAGE - HMO) Radha Camilo [id number] Radha Camilo Notes Date Note Type Note Provider Name and Address Organization Details Recorded Time 11/05/2023 text/html [facility] Nurse Triage Notes (Shobha Duque): Chief Complaints: Cough, ENT Allergies: No Known Comments: Member's niece called in for member reporting URI symptoms for the last week. [facility] RN verified identity via name/. Confirmed phone number. Member has been congested for 1 week and coughing. Non productive cough but has fits that make her feel SOB. No significant resp history. Previously needed home o2 after first COVID infection a few years ago. Member thinks she had a fever last week. Feels like her head is spinning at times. Not eating and drinking like usual. No known sick contacts. Requesting visit for assessment. Education provided on expected response time and the member was advised to monitor reported s/s. Member in agreement to seek emergency treatment if needed. Juan Duque RN [employer] Organization Information for Jeremy Morales Business Legal Name: [facility] Address: [address] [place] [address], [place] [address], Skilled Nursing Professional: Seth Aguilera MD [facility] No.: [id number] [employer] POC Test Results from Jeremy Morales Rapid influenza antigen (17:56:07) Flu: - Rapid COVID antigen (17:56:09) COVID: - .................... .................... .................... .................... .................... .................... .................... . [employer] Note From Jeremy Morales: Pt reports sinus congestion and dry cough for one week. Pt denies CP, SOB, DELANEY, RATLIFF, dizziness, f/n/v/d. Pt sts she feels like her sx are slowly improving. Pt using mucinex with mild relief. Pt is alert, NAD. VSS. Afebrile. Non focal neuro exam. Normal gait. Lungs CTA. Benign ABD exam. No LE edema. Rapid covid and flu negative. Pt educated on rx and additional supportive care measures. Red flags reviewed. .................... .................... .................... .................... .................... .................... .................... . Disposition: Alexa Phelan MD [address] [place] [address],[address], [place], [phone], [employer] 11/05/2023 19:29:48 03/22/2024 text/html [facility] Nurse Triage Notes (Shobha Duque - RN): Chief Complaints: Common cold symptoms, Fatigue, Cough PMH Reviewed at 03/22/2024 - 18:20 Allergies Reviewed at 03/22/2024 - 18:20 Comments: Member's family member calling to report cold/flu symptoms for the past week. [facility] RN verified identity via name/. Member has been feeling sick since Saturday and had temp earlier in the week. Denies fever now. Having cough, increased congestion, and fatigue. Taking over the counter medication. Feeling worse today. Denies chest pain but does have some tightness related to congestion. Denies SOB. Having difficult time managing secretions. No known sick contacts. Education provided on expected response time and the member was advised to monitor reported s/s. Member in agreement to seek emergency treatment if needed. Juan Duque RN [employer] Organization Information for Sonia [employer] Legal Name: [employer] ? Address: [address] [place] [id number], Skilled Nursing Professional: Brian JAMES No.: [id number] [employer] POC Test Results from Sonia [employer]ie - ALS Rapid COVID antigen (21:34:38) COVID: - Rapid influenza antigen (21:34:39) Flu: - .................... .................... .................... .................... .................... .................... .................... . [employer] Note From Sonia Xie: [facility] makes pt contact. She is found sitting upright in a chair in her bedroom, covered w/ a blanket. She watches [facility] enter the room and says hello. She has dark circles under her eyes, but she is not in acute distress. No stridor or sonorous respirations are present, no facial droop, slurred speech, or one-sided weakness are observed, and she is not bleeding anywhere. She endorses cough and congestion for five days as well as chest pain and tightness from coughing. She says she had a fever three days ago, but hasn't had one since. She is denying sob, n/v/d, abd, sore throat at this time. She is currently taking Mucinex every 12 hours along w/ store brand Nyquil, Vicks vaporub, and Tylenol for pain. She has an intermittent cough and endorses clear sputum. Pt is wanting evaluation for the coughing. [facility] obtains vital signs and assesses pt. Lung sounds are clear and equal to auscultation and remaining assessment is unremarkable. Pt is swabbed for COVID/flu and found to be negative. [facility] contacts [facility] and discusses the above. [facility] orders an albuterol breathing treatment and 200mg benzonatate PO and calls in a prescription for an inhaler and the cough suppressant for the pt. [facility] administers 2.5mg albuterol through nebulizer at 8 lpm O2, utilizing a nebulizer mask. Pt tolerates breathing treatment well. Lung sounds are reassessed and pt remains clear w/ improved air movement. She thanks [facility] for coming. [facility] is clear. Report completed by JEN Xie [id number]. .................... .................... .................... .................... .................... .................... .................... . [facility] Consulted: Sherrell Mckeon .................... .................... .................... .................... .................... .................... .................... . Disposition: Fulfilled Sherrell Mckeon MD [address] [place] [address],[address], [place], [phone], [employer] 03/23/2024 01:31:45 OBGyn Episode No OBEpisode recorded.
== END 2024-05-27 16:23 | disposition home or self-care (01) ==
LOC: HO.ED 16:21
PROVIDERS: Emergency Provider Emergency Medicine; PCP Internal Medicine
DX: S90.411A Abrasion, right great toe, initial encounter (principal); X58.XXXA Exposure to other specified factors, initial encounter; Y93.9 Activity, unspecified; Y92.9 Unspecified place or not applicable; Y99.9 Unspecified external cause status; Z79.899 Other long term (current) drug therapy
CPT/HCPCS: 99282; 99283

== ENCOUNTER 2024-07-10 09:31 | Outpatient (AMB) | payer OTHER, SELFPAY ==
--- NOTE | 2024-07-10 09:39 | MHC.OFFVIS ---
Vital Signs 07/10/24 09:41 Height 4 ft 10 in Intake Visit Reasons: Follow up 7 months Intake Note: ESTABLISHED PATIENT for mgmt of chronic abd pain. Pharmacy; [facility]. Allergies No Known Allergies Allergy (Verified 07/10/24 09:40) HPI HPI Follow up 7 months: Details: Assessment & Plan (1) Upper abdominal pain: Code(s): R10.10 - Upper abdominal pain, unspecified Category: Medical (2) History of Helicobacter pylori infection: Code(s): Z86.19 - Personal history of other infectious and parasitic diseases Category: Medical (3) GERD (gastroesophageal reflux disease): Code(s): K21.9 - Gastro-esophageal reflux disease without esophagitis Category: Medical Plan Salvadorean #son Renzo translates per pt request. The problem started about 7-8 mos ago. It it a burning sensation in the midline upper abdomen gastric area. It is worse first thing in the am. She is on pantoprazole 40mg bid and she takes the second dose at 5-6pm. It is intermittent and and occurs 1-2 times a week. I note that she has a prescription for Reglan 10 mg but she never took it because she ?read about side effects she did not like.? She is willing to retry this if necessary but her symptoms are not terribly convincing for severe gastroparesis. I think we should get a gastric emptying study before deciding on this. She had an EGD/colonoscopy in [place] and she had HP gastritis and was txed with abx; but they did not check for eradication. She is moving her bowels well. she can not ID any medication changes, illness etc the preceded this. NO FHX of CRC or polyps or stomach cancer; she does not think they found polyps on her last colonoscopy. I suggest she try moving her last dose of pantoprazole to later in the night. Will get HP stool, general labs, US, GES. Consider if EGD repeat needed. ROV 8 weeks. Orders: Orders NM gastric emptying study Today R10.10 - Upper abdominal pain, unspecified Complete Blood Count Auto Diff Today R10.10 - Upper abdominal pain, unspecified US abdomen complete Today R10.10 - Upper abdominal pain, unspecified H pylori Ag Stool Today R10.10 - Upper abdominal pain, unspecified Comprehensive Met. Panel Today R10.10 - Upper abdominal pain, unspecified LABS: Laboratory Tests 09/24/23 10/03/23 01/07/24 12:06 12:30 10:45 WBC 8.1 Hgb 12.8 Hct 38.6 Plt Count 275 Estimated GFR > 60 Hemoglobin A1c % 6.5 H Total Bilirubin 0.4 AST 14 ALT 15 Alkaline Phosphatase 86 Stool H. pylori Ag negative ULTRASOUND OF THE ABDOMEN 09/23/23 FINDINGS: PANCREAS: Limited visualization of pancreatic tail and head. Imaged portion of pancreatic body is unremarkable. ABDOMINAL AORTA: The proximal, mid, and distal segments are normal in caliber. INFERIOR VENA CAVA: Visualized portions are normal. LIVER: Hepatomegaly, 17.2 cm. Increased hepatic parenchymal heterogeneity and echogenicity could be associated with hepatocellular disease/hepatic steatosis and substantially limits visualization. Correlation with liver function tests and clinical exam recommended to determine further management. GALLBLADDER: Sludge in the fundal aspect of the gallbladder. Cholelithiasis. No gallbladder wall thickening. COMMON BILE DUCT: Normal in caliber measuring 0.8 cm in diameter. RIGHT KIDNEY: No hydronephrosis. No renal calculi. Limited visualization. The kidney measures 9.9 cm in maximum dimension. LEFT KIDNEY: No hydronephrosis. No renal calculi. Limited visualization. The kidney measures 10.1 cm in maximum dimension. SPLEEN: Normal. The spleen measures 9.2 cm in maximum dimension. FREE FLUID: None. US/US abdomen complete IMPRESSION: 1. Hepatomegaly, 17.2 cm. Increased hepatic parenchymal heterogeneity and echogenicity could be associated with hepatocellular disease/hepatic steatosis and substantially limits visualization. Correlation with liver function tests and clinical exam recommended to determine further management. 2. Sludge in the fundal aspect of the gallbladder. Cholelithiasis. No gallbladder wall thickening. TODAY'S VISIT Salvadorean # son translates per patient request She is here today with her son who translates. He says that her epigastric pain now is more intermittent and they credits this to discovering dietary triggers that she needs to avoid. Apparently these triggers are overly greasy foods, as would be expected, and overly spicy foods. With this in the pantoprazole she has been feeling somewhat better. She never tried the Reglan so will take this off her list. She does have gallbladder sludge so I educate them a this would particularly set off the gallbladder and she may benefit from a trial of Creon to help rest the gallbladder in case she does have some dietary indiscretions. She is agreeable to trying this. Apparently the son says that his mother is very focused on doing a ?whole-body scan? to find out if everything is all right. I let them know that you can not just order that and have insurance pay for it without good clinical indications. However, we can probably get a CAT scan of the abdomen and pelvis given her ongoing problems with abdominal pain. However, I let them know that I think that the known finding of gallbladder sludge is as much the problem is anything else. We will continue her pantoprazole 40 mg twice a day. Return office visit in 8 weeks [facility] Medical History (Updated 07/10/24 @ 09:58 by BABAR Byrd) History of Helicobacter pylori infection Surgical History Status post total left knee replacement H/O colonoscopy History of esophagogastroduodenoscopy (EGD) Family History Father Cancer of lung Social History Household Members: Family Housing: Apartment Alcohol intake: former Comment: occasionally in the past Patient Tobacco Use Status: Never used Tobacco Review of Systems Const Denies fatigue, Denies fever(s), Denies night sweats, Denies poor appetite and Denies weight loss ENT Reports Normal hearing present, Denies dental pain, Denies dysphagia, Denies hearing loss, Denies mouth pain, Denies odynophagia, Denies throat swelling, Denies tongue swelling and Reports other (Dentition adequate) Card Reports no additional complaints Resp Reports no additional complaints GI Details: Denies abdominal pain, Denies melena, Reports bloating, Denies hematochezia, Denies constipation, Denies GI cramping, Denies dysphagia, Denies excessive flatus, Denies early satiety, Reports heartburn, Denies diarrhea, Denies nausea, Denies odynophagia, Denies vomiting and Denies hematemesis Skin/Breast Denies pruritus, Denies lesions, Denies rash and Denies jaundice Neuro Reports Normal hearing present and Denies Abnormal speech present Endo Denies fatigue Aller/Immun Denies throat swelling and Denies tongue swelling Physical Exam Const General: cooperative, no acute distress, well developed and well groomed Nutritional Appearance: well nourished and obese Orientation/consciousness: oriented to person, oriented to place and oriented to time Limitations: language barrier HEENT Head: Yes normocephalic and Yes atraumatic Eyes General: appearance normal, both eyes and all related structures Pupils: Equal, round and reactive pupils present Neck Neck: Yes normal visual inspection and Yes no lymphadenopathy Thyroid: Thyroid normal Resp Effort & Inspection: normal respiratory effort and able to speak in complete sentences Auscultation: clear to auscultation bilaterally Cardio Rate: regular rate Rhythm: regular rhythm Heart sounds: Normal, physiologic split S2 sound present Peripheral pulses: radial pulses present and posterior tibial pulses present GI Inspection: No distended, Yes Abdominal panniculus present and Yes obesity Palpation (GI): Soft to palpation, nontender, no guarding, not rigid and No hepatosplenomegaly present Percussion: Yes normal to percussion Auscultation: normal bowel sounds Rectal Exam - Female: deferred Skin General skin exam: no rashes or lesions noted, turgor normal, skin not dry, no jaundice, No spider nevi and no striae Rashes: no rashes Nails: normal Neuro General: oriented to person, oriented to place and oriented to time Cranial nerves: Yes Equal, round and reactive pupils present and Yes Normal hearing present Speech: No Abnormal speech present Extrem General: Yes normal to inspection, No clubbing, No cyanosis and No edema Psych Appearance: grossly normal and well kempt Mental Status: mental status grossly normal Speech and movement: Normal speech and movement present Affect: normal affect Attitude: cooperative Thought process: Normal thought process present and not confabulating Thought content: Normal thought content present Insight: Fair insight present (Psych) Judgement: Fair judgement present (Psych) Assessment & Plan Assessment & Plan (1) GERD (gastroesophageal reflux disease): Code(s): K21.9 - Gastro-esophageal reflux disease without esophagitis Category: Medical (2) Generalized abdominal pain: Code(s): R10.84 - Generalized abdominal pain Category: Medical (3) Cholelithiasis: Comment: With sludge on 10/2023 ultrasound but patient does not have symptoms at this time Code(s): K80.20 - Calculus of gallbladder without cholecystitis without obstruction Category: Medical Plan Salvadorean # son translates per patient request She is here today with her son who translates. He says that her epigastric pain now is more intermittent and they credits this to discovering dietary triggers that she needs to avoid. Apparently these triggers are overly greasy foods, as would be expected, and overly spicy foods. With this in the pantoprazole she has been feeling somewhat better. She never tried the Reglan so will take this off her list. She does have gallbladder sludge so I educate them a this would particularly set off the gallbladder and she may benefit from a trial of Creon to help rest the gallbladder in case she does have some dietary indiscretions. She is agreeable to trying this. Apparently the son says that his mother is very focused on doing a ?whole-body scan? to find out if everything is all right. I let them know that you can not just order that and have insurance pay for it without good clinical indications. However, we can probably get a CAT scan of the abdomen and pelvis given her ongoing problems with abdominal pain. However, I let them know that I think that the known finding of gallbladder sludge is as much the problem is anything else. We will continue her pantoprazole 40 mg twice a day. Return office visit in 8 weeks Orders: Orders Blood Urea Nitrogen Today R10.84 - Generalized abdominal pain Creatinine Today R10.84 - Generalized abdominal pain CT abdomen pelvis w IV con Today R10.84 - Generalized abdominal pain Medications: New erydou-kctkuvli-isxrjgn 36,000-114,000- 180,000 unit (Creon) administer with meals and/or snacks 2 caps PO BID 120 caps 6RF K80.20 - Calculus of gallbladder without cholecystitis without obstruction, R10.84 - Generalized abdominal pain pantoprazole 40 mg PO BID 60 tabs 6RF K21.9 - Gastro-esophageal reflux disease without esophagitis Refilled pantoprazole 40 mg PO BID 60 tabs 6RF K21.9 - Gastro-esophageal reflux disease without esophagitis Coding Level of Care Code Est Pt Level 3 (07028) Diagnoses GERD (gastroesophageal reflux disease) K21.9 Generalized abdominal pain R10.84 Cholelithiasis K80.20
--- OUTSIDE RECORDS SUMMARY | 2024-07-10 09:52 | XMS_ITS | Data Portability ---
Demographics Address [address] [place] [address] Home Phone Preferred Language Unknown Marital Status Unknown Jew Affiliation Unknown Race Unknown Ethnic Group Unknown Author Organization [facility] Address [address] [place] [address] Care Team Providers Care Consulting Actuary Name Role Phone HIM RAFFI OTHER SILVIOVISHNU Young Primary Care Provider Assessment Encounter Date Assessment Date Assessment LastModified by Organization Details LastModified Time 11/05/2023 11/05/2023 I have reviewed and agree with the assessment and plan as documented by the court stenographer. I provided real-time medical direction for this [...] in the field was performed by my court stenographer colleague, as noted above, I provided real-time [...] Ag, QL IA, respiratory specimen 2023 024 [facility], [address] [place] [address], [phone] 4 18:01:58 rapid flu (A+B) 2023 024 [facility], [address] [place] [address], [id number] 4 18:01:56 Referral None recorded. Procedures None recorded. Surgeries None recorded. Imaging None recorded. Medication Orders albuterol sulfate 2.5 mg/3 mL (0.083 %) solution for nebulizatio n 2024 025 [email or web address] [facility]/Pharmacy #[id number], [address] [place], [address], 5 21:42:04 benzonatate 200 mg capsule 2024 025 [facility]/Pharmacy #[id number], [address] [place], [address], 5 21:46:34 benzonatate 100 mg capsule 2024 025 [email or web address] [facility]/Pharmacy #[id number], [address] [place], [address], 5 21:46:32 albuterol sulfate HFA 90 mcg/actuati on aerosol inhaler 2024 025 [facility]/Pharmacy #[id number], [address] [place], [address], 5 21:46:34 Flonase Allergy Relief 50 mcg/actuati on nasal spray,suspe nsion 2023 024 [facility]/Pharmacy #[id number], [address] [facility], [place], [address], 18:01:59 Patient TargetsNo targets recorded. Patient InstructionsNo instructions recorded. Reason for Referral None Reported. Results Created Date Observation Date Name Description Value Unit Range Abnormal Flag Note LastModifiedBy Organization Detail LastModifiedTime 11/05/1911/05/2023 rapid flu (A+B) Flu negati ve Not Available Main - [facility] ed [address] [place] [address], [id number] 11/05/2023 17:59:50 11/05/1911/05/2023 rapid SARS CoV 2 Ag, QL IA, respi rator y speci men rapid SARS CoV 2 Ag, QL IA, respiratory specimen negati ve Not Available Main - [facility] ed [address] [place] [address], [id number] 11/05/2023 17:59:49 Result Notes None recorded. Medical [...] Not Available Not Available Vitals Date Recorded Respiratory rate Body temperature Body weight Body height Oxygen saturation Oxygen saturation in Arterial blood by Pulse oximetry Heart rate Systolic blood pressure Diastolic blood pressure Provider Name and Address Organization Details Last Updated DateTime 5 18 /min 98.6 [degF] 31846.8 48 g 147.32 cm 99 % 99 % 86 /min 121 mm[Hg] 83 mm[Hg] Not Available [facility] - production 21:38:58 Date Recorded Body weight Respiratory rate Heart rate Body height Body temperature Oxygen saturation Oxygen saturation in Arterial blood by Pulse oximetry Systolic blood pressure Diastolic blood pressure Provider Name and Address Organization Details Last Updated DateTime 4 87355.2 96 g 16 /min 71 /min 152.4 cm 98.2 [degF] 98 % 98 % 125 mm[Hg] 69 mm[Hg] Not Available [facility] - production 4 17:58:21 Social History None recorded. Functional Status None recorded. Mental Status None recorded. Family History Nothing Reported. Medical History No medical history recorded. Gynecological HistoryNo gynecological history recorded. Obstetrics History GPAL:G 0 P 0 0 0 0 Past Encounters Encounter ID Performer Location Encounter Start Date Encounter Closed Date Diagnosis/Indication Diagnosis SNOMED-CT Code Diagnosis ICD10 Code Diagnosis Note [id number] Aaliyah Phelan MD Main - [facility] [address] [place] [id number] 11/05/2023 17:58:18 11/05/2023 21:05:26 Viral upper respiratory tract infection 691089470 J06.9 [id number] Sherrell Mckeon MD Main - [facility] [address] [place] [id number] 03/22/2024 21:38:54 03/23/2024 15:21:47 Cough 24113641 R05.9 Health Concerns Section Related Observation LastModified by Organization Detai ls LastModified Time None Recorded Concern Status LastModified by Organization Details LastModified Time None Recorded Advance Directives Directive None Recorded Payers Insurance Date Sequence Insurance Name Policy Number Policy Capone Covered Member ID Capone Member ID Guarantor Name 03/23/2024 1 [facility] - DOS ON OR AFTER 2022 - DUAL ELIGIBLE - HALF-WAY OPTIONS AND ONE CARE (MEDICARE REPLACEMENT/ADV ANTAGE - HMO) Radha Camilo [id number] Radha Camilo Notes Date Note Type Note [...] emergency treatment if needed. Juan Duque RN Duplicating Machine Servicer Organization Information for Jeremy Morales Business Legal Name: [facility] [email or web address] Address: [address] [place] [address], Cash Control Specialist: Seth Aguilera MD [facility] No.: [id number] Duplicating Machine Servicer POC Test Results from Jeremy Morales Rapid influenza antigen (17:56:07) Flu: - Rapid COVID antigen (17:56:09) COVID: - .................... .................... .................... .................... .................... .................... .................... . Duplicating Machine Servicer Note From Jeremy Morales: Pt reports sinus [...] .................... .................... .................... .................... . Disposition: Alexa Aaliyah Phelan MD [address] [place] [address],[address], [place], [address], [facility] 11/05/2023 19:29:48 03/22/2024 text/html CRC Nurse Triage [...] emergency treatment if needed. Juan Duque RN Duplicating Machine Servicer Organization Information for Sonia Xie [employer] Business Legal Name: [employer]? Address: [address] [place] [address], Cash Control Specialist: Brian Mcmahon MD CLIA No.: [id number] Duplicating Machine Servicer POC Test Results from [employer] Rapid COVID antigen (21:34:38) COVID: - Rapid influenza antigen (21:34:39) Flu: - .................... .................... .................... .................... .................... .................... .................... . Duplicating Machine Servicer Note From Sonia Xie: [facility] makes pt contact. She is found sitting upright in a chair in her bedroom, covered w/ a blanket. She watches [facility] enter the room and says helbebeto. She has dark circles under her eyes, [...] Pt is wanting evaluation for the coughing. [facility] obtains vital signs and assesses pt. Lung sounds are clear and equal to auscultation and remaining assessment is unremarkable. Pt is swabbed for COVID/flu and found to be negative. [facility] contacts [facility] and discusses the above. [facility] orders an albuterol breathing treatment and 200mg benzonatate PO and calls in a prescription for an inhaler and the cough suppressant for the pt. [facility] administers 2.5mg albuterol through nebulizer at 8 lpm O2, utilizing a nebulizer mask. Pt tolerates breathing treatment well. Lung sounds are reassessed and pt remains clear w/ improved air movement. She thanks [facility] for coming. [facility] is clear. Report completed by JEN Xie [id number]. .................... .................... .................... .................... .................... .................... .................... . [facility] Consulted: Sherrell Mckeon .................... .................... .................... .................... .................... .................... .................... . Disposition: Fulfilled Sherrell Mckeon MD [address] [place] [address],[address], [place], [phone], [facility] 03/23/2024 01:31:45 OBGyn Episode No OBEpisode recorded.
== END 2024-07-10 10:07 | disposition home or self-care (01) ==
LOC: HO.HGI 09:32
PROVIDERS: PCP Internal Medicine; Visit Provider Nurse Practitioner
DX: K21.9 Gastro-esophageal reflux disease without esophagitis (principal); R10.84 Generalized abdominal pain; K80.20 Calculus of gallbladder without cholecystitis without obstruction
CPT/HCPCS: 99213

== ENCOUNTER → 2024-07-10 09:31 | Outpatient (BNVA) | payer OTHER, SELFPAY | PROVIDERS: PCP Internal Medicine; Visit Provider Nurse Practitioner | DX: K21.9 Gastro-esophageal reflux disease without esophagitis (principal); K80.20 Calculus of gallbladder without cholecystitis without obstruction; R10.84 Generalized abdominal pain | CPT/HCPCS: 99212 ==

== ENCOUNTER 2024-08-12 08:49 | Outpatient (AMB) | payer OTHER, SELFPAY ==
--- OUTSIDE RECORDS SUMMARY | 2024-08-12 08:53 | XMS_ITS | Data Portability ---
Demographics Address [address] [place] [address] Home Phone Preferred Language Unknown Marital Status Unknown Roman Catholic Affiliation Unknown Race Unknown Ethnic Group Unknown Author Organization [facility] Address [address] [place] [address] Care Team Providers Care Family Practice Physician Name Role Phone HIM CCA OTHER SILVIOHannahVISHNU Primary Care Provider Assessment Encounter Date Assessment Date Assessment LastModified by Organization Details LastModified Time 11/05/2023 11/05/2023 I have reviewed and agree with the assessment and plan as documented by the deputy clerk of superior court. I provided real-time medical direction for this [...] in the field was performed by my deputy clerk of superior court colleague, as noted above, I provided real-time [...] Ag, QL IA, respiratory specimen 2023 024 [facility], [address] [place] [address], [phone] 4 18:01:58 rapid flu (A+B) 2023 024 [facility], [address] [place] [address], [phone] 4 18:01:56 Referral None recorded. Procedures None recorded. Surgeries None recorded. Imaging None recorded. Medication Orders albuterol sulfate 2.5 mg/3 mL (0.083 %) solution for nebulizatio n 2024 025 [email or web address] [id number], [address] [place], [address], 5 21:42:04 benzonatate 200 mg capsule 2024 025 [id number], [address] [place], [address], 5 21:46:34 benzonatate 100 mg capsule 2024 025 [email or web address] [id number], [address] [place], [address], 5 21:46:32 albuterol sulfate HFA 90 mcg/actuati on aerosol inhaler 2024 025 [id number], [address] [place], [address], 5 21:46:34 Flonase Allergy Relief 50 mcg/actuati on nasal spray,suspe nsion 2023 024 [id number], [address] [facility], [place], [address], 4 18:01:59 Patient TargetsNo targets recorded. Patient InstructionsNo instructions recorded. Reason for Referral None Reported. Results Created Date Observation Date Name Description Value Unit Range Abnormal Flag Note LastModifiedBy Organization Detail LastModifiedTime 11/05/1911/05/2023 rapid flu (A+B) Flu negati ve Not Available [facility] ed [address] [place] [address], [phone] 11/05/2023 17:59:50 11/05/1911/05/2023 rapid SARS CoV 2 Ag, QL IA, respi rator y speci men rapid SARS CoV 2 Ag, QL IA, respiratory specimen negati ve Not Available [facility] ed [address] [place] [address], [phone] 11/05/2023 17:59:49 Result Notes None recorded. Medical [...] Updated DateTime 5 18 /min 98.6 [degF] 75090.8 48 g 147.32 cm 99 % 99 % 86 /min 121 mm[Hg] 83 mm[Hg] Not Available [facility] - production 21:38:58 Date Recorded Body weight Respiratory rate Heart rate Body height Body temperature Oxygen saturation Oxygen saturation in Arterial blood by Pulse oximetry Systolic blood pressure Diastolic blood pressure Provider Name and Address Organization Details Last Updated DateTime 4 89359.2 96 g 16 /min 71 /min 152.4 cm 98.2 [degF] 98 % 98 % 125 mm[Hg] 69 mm[Hg] Not Available [facility] production 17:58:21 Social History None recorded. Functional Status None recorded. Mental Status None recorded. Family History Nothing Reported. Medical History No medical history recorded. Gynecological HistoryNo gynecological history recorded. Obstetrics History GPAL:G 0 P 0 0 0 0 Past Encounters Encounter ID Performer Location Encounter Start Date Encounter Closed Date Diagnosis/Indication Diagnosis SNOMED-CT Code Diagnosis ICD10 Code Diagnosis Note [id number] Aaliyah Phelan MD [facility] [address] [place] [phone] 11/05/2023 17:58:18 11/05/2023 21:05:26 Viral upper respiratory tract infection 569125334 J06.9 [id number] Sherrell Mckeon MD [facility] - [facility] [address] [place] [phone] 03/22/2024 21:38:54 03/23/2024 15:21:47 Cough 20199028 R05.9 Health Concerns Section Related Observation LastModified by Organization Detai ls LastModified Time None Recorded Concern Status LastModified by Organization Details LastModified Time None Recorded Advance Directives Directive None Recorded Payers Insurance Date Sequence Insurance Name Policy Number Policy Capone Covered Member ID Capone Member ID Guarantor Name 03/23/2024 1 [facility] - DOS ON OR AFTER 2022 - DUAL ELIGIBLE - JAIL OPTIONS AND ONE CARE (MEDICARE REPLACEMENT/ADV ANTAGE - HMO) Radha Camiol [id number] Radha Camilo Notes Date Note Type Note Provider Name and Address Organization Details Recorded Time 11/05/2023 text/html [facility] Nurse Triage Notes (Neto Shobha): Chief Complaints: Cough, ENT Allergies: No Known [...] emergency treatment if needed. Juan Duque RN Broke Beater Operator Organization Information for Jeremy Morales Business Legal Name: [facility] Transportation Address: [address] [place] [address], Medical Radiation Therapist: Seth Aguilera MD [facility] No.: [id number] Broke Beater Operator POC Test Results from Jeremy Morales Rapid influenza antigen (17:56:07) Flu: - Rapid COVID antigen (17:56:09) COVID: - .................... .................... .................... .................... .................... .................... .................... . Broke Beater Operator Note From Jeremy Morales: Pt reports sinus [...] .................... . Disposition: Alexa Aaliyah Phelan MD [address] [place] [address],[address], [place], [address], [employer] 11/05/2023 19:29:48 03/22/2024 text/html CRC Nurse Triage [...] emergency treatment if needed. Juan Duque RN Broke Beater Operator Organization Information for Sonia Xie [facility] Business Legal Name: [facility]. Address: [address] [place] [address], Medical Radiation Therapist: Brian Mcmahon MD CLIA No.: [id number] Broke Beater Operator POC Test Results from [facility] Rapid COVID antigen (21:34:38) COVID: - Rapid influenza antigen (21:34:39) Flu: - .................... .................... .................... .................... .................... .................... .................... . Broke Beater Operator Note From Sonia Xie: [facility] makes pt contact. She is found sitting upright in a chair in her bedroom, covered w/ a blanket. She watches [facility] enter the room and says hello. She [...] Pt is wanting evaluation for the coughing. [facility] obtains vital signs and assesses pt. Lung sounds are clear and equal to auscultation and remaining assessment is unremarkable. Pt is swabbed for COVID/flu and found to be negative. [facility] contacts [facility] and discusses the above. [facility] orders an albuterol breathing treatment and 200mg benzonatate PO and calls in a prescription for an inhaler and the cough suppressant for the pt. [facility] administers 2.5mg albuterol through nebulizer at 8 lpm O2, utilizing a nebulizer mask. Pt tolerates breathing treatment well. Lung sounds are reassessed and pt remains clear w/ improved air movement. She thanks [facility] for coming. [facility] is clear. Report completed by JEN Xie [id number]. .................... .................... .................... .................... .................... .................... .................... . [facility] Consulted: Sherrell Mckeon .................... .................... .................... .................... .................... .................... .................... . Disposition: Fulfilled Sherrell Mckeon MD [address] [place] [address],[address], [place], [address], [facility] 03/23/2024 01:31:45 OBGyn Episode No OBEpisode recorded.
--- NOTE | 2024-08-12 09:09 | A.OFFPC_ITS ---
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 Required: No Accompanied by: Son Allergies No Known Allergies Allergy (Verified 08/12/24 10:52) Medication List - Last Reconciled 08/12/24 by Meredith Mosley PA-C albuterol sulfate 90 mcg/actuation inhalation aspirin 1 tab PO DAILY atorvastatin 20 mg PO DAILY dulaglutide (Trulicity) mg subcut QWEEK empagliflozin (Jardiance) 10 mg PO QAM fluticasone propionate 50 mcg/actuation sprays intranasal gabapentin 300 mg PO TID PRN 90 days hydrochlorothiazide 25 mg PO DAILY insulin glargine (Lantus Solostar U-100 Insulin) units subcut latanoprost 0.005% 1 drp ophthalmic (eye) QPM [id number] 36,000-114,000- 180,000 unit (Creon) 2 caps PO BID lisinopril 20 mg PO DAILY 90 days naproxen 500 mg PO BID PRN 90 days pantoprazole 40 mg PO BID pen needle, diabetic As directed Tobacco use date assessed: 08/12/24 Fall risk assessment: 1 Fall in past year Last assessed Fall Risk: 08/12/24 Dental Screening Dental Screen Date: 08/12/24 Did you have a dental visit in the last 12 months?: No Did you have a dental problem in the last 6 months where you did not have access to dental care?: No HPI Establish Care HPI Details The patient is a 64-year-old female presenting to establish a new primary care provider along with management of chronic conditions. The patient has a history of intermittent bronchitis/cough episodes, for which she uses albuterol as needed. She is also on atorvastatin for hyperlipidemia and has been prescribed Trulicity and Jardiance for type 2 diabetes mellitus. The patient reports a history of hypertension, previously managed with lisinopril, but she experienced a cough and was advised to switch to losartan, which she has not yet started. She is currently using an old supply of lisinopril and needs a refill. The patient has been diagnosed with gastroesophageal reflux disease (GERD) and is taking pantoprazole for management. She also has a history of osteopenia, con firmed by a DEXA scan. The patient has a history of cholelithiasis and hepatomegaly, with previous imaging showing gallstones and an enlarged liver. She was treated for Helicobacter pylori gastritis with antibiotics but did not follow up for eradication confirmation. Currently being followed by gastroenterology. Last colonoscopy and EGD was in [place] a few years ago. Patient had DEXA scan on 01/07/2024 which revealed osteopenia although patient not on treatment and declining treatment for osteopenia. Mammogram done on 01/07/2024 which was within normal limits no evidence of malignancy repeat in 1 year. [facility] Medical History History of Helicobacter pylori infection Hepatomegaly Osteopenia Morbid obesity with BMI of 40.0-44.9, adult Hypertension Hyperlipidemia Type 2 diabetes mellitus with hemoglobin A1c goal of less than 7.0% Establishing care with new doctor, encounter for Surgical History Status post total left knee replacement H/O colonoscopy History of esophagogastroduodenoscopy (EGD) Family History Father Cancer of lung Mother Arthritis Social History Household Members: Family Housing: Apartment Alcohol intake: current Alcohol intake frequency: does not drink Patient Tobacco Use Status: Never used Tobacco service: No Current occupational status: retired Cognitive needs: Yes (walker) Hearing needs: No Vision needs: Yes (reading glasses) Questionnaire PHQ-9 Over the last 2 weeks, how often have you been bothered by any of the following problems? 1. Little interest or pleasure in doing things: not at all 2. Feeling down, depressed, or hopeless: not at all 3. Trouble falling or staying asleep, or sleeping too much: not at all 4. Feeling tired or having little energy: not at all 5. Poor appetite or overeating: not at all 6. Feeling bad about yourself - or that you are a failure or have let yourself or your family down: not at all 7. Trouble concentrating on things, such as reading the newspaper or watching television: not at all 8. Moving or speaking so slowly that other people could have noticed. Or the opposite - being so fidgety or restless that you have been moving around a lot more than usual: not at all 9. Thoughts that you would be better off or of hurting yourself in some way: not at all Total score: 0 Depression Screening Interpretation: Negative Depression Screening Done: Yes 81861 - PHQ-9 Billing: Yes Source: Developed by Drs. Zev Ferro, Katie Cavanaugh, Aquiles Kennedy and colleagues, with an educational marycarmen from [employer]. Thrive Questionnaire Date Thrive assessed: 08/12/24 I am a: Patient What is your living situation today?: I have a steady place to live Within the past 12 months, did the food you bought not last and you didn't have the money to get more?: Never true Within the past 12 months, did you worry whether your food would run out before you got money to buy more?: Never true Do you have trouble paying for medicines?: No Do you have trouble getting transportation to medical appointments?: No Do you have trouble paying your heating and electricity bill?: No Do you have trouble taking care of your child, family member or friend?: No Do you have trouble with day-to-day activities such as bathing, preparing meals, shopping, managing finances, etc.?: No Are you currently unemployed and looking for a job?: No Are you interested in more education?: No Please select the resources that you would like help with: None THRIVE Score: 0 AUDIT C Alcohol Use Questionnaire (AUDIT-C) 1. How often do you have a drink containing alcohol?: Never 3. How often do you have six or more drinks on one occasion?: Never Total Score: 0 Score Reviewed/Action Taken: No MARITZA-7 AMB Questionnaire MARITZA-7 Date MARITZA - 7 assessed: 08/12/24 Feeling nervous, anxious, or on edge: 0 = Not at all Not being able to stop or control worryin = Not at all Worrying too much about different things: 0 = Not at all Trouble relaxin = Not at all Being so restless that it is hard to sit still: 0 = Not at all Becoming easily annoyed or irritable: 0 = Not at all Feeling afraid as if something awful might happen: 0 = Not at all Total MARITZA-7 score (0-4 normal; 5-9 mild; 10-14 moderate; 15-21 severe): 0 Source: Developed by Drs. Zev Ferro, Katie Cavanaugh, Aquiles Kennedy and colleagues, with an educational marycarmen from [employer]. MARITZA-7 Assessment Billing MARITZA-7 Assessment Tool: MARITZA-7 Assessment 24849 Physical exam (Primary Care) Vital Signs: Last Vital Signs Temp 98.3 F 08/12/24 09:30 Pulse 62 08/12/24 09:30 Resp 16 08/12/24 09:30 BP 135/58 L 08/12/24 09:30 Pulse Ox 98 08/12/24 09:30 Oxygen Delivery Method Room Air 08/12/24 09:30 Care Plan Goal for BP management: <140/90 at Goal BMI result Body Mass Index 40.2 BMI Assessment/Plan discussion: High BMI High, discussed plan: lifestyle, weight reduction, dietary, physical activity and alcohol moderation Tobacco/Smoking Status: Tobacco use Status Tobacco use date assessed 08/12/24 08/12/24 09:11 Patient Tobacco Use Status Never used Tobacco 08/12/24 09:45 PHQ-9: PHQ-9 Score PHQ-9: Total score 0 08/12/24 10:12 Depression Screening Interpretation: Negative Thrive Assessment: Date of Thrive Assessment Date Thrive assessed 08/12/24 08/12/24 09:11 Const Other: Appearance: Alert. Oriented X3. No acute distress. Head: Normal external exam. Normocephalic. Atraumatic. Eyes: Pupils are equal, round, and reactive to light. Extraocular movements intact. Conjunctiva and sclera normal. Eyelids normal. Throat: Pharynx normal. Uvula midline. Moist mucous membranes. Neck: Normal inspection. Neck supple. Full range of motion. Cardiovascular: Normal heart rate and rhythm. Heart sound normal. No murmurs noted. Pulses normal throughout. Respiratory: No respiratory distress. Painless inspiration. Breath sounds normal. No wheezes/rales/rhonchi noted. Chest nontender. No accessory muscle usage noted or decreased air movement noted. Abdomen: Soft and nontender. Back: Full range of motion noted. Skin: Skin warm and dry. Normal skin color. Normal skin turgor. No rashes/lesions/lacerations noted. Extremities: No lower extremity edema. Extremities exhibit normal range of motion. Extremities nontender. Neuro: Oriented X 3. No motor deficit. No sensory deficit. Reflexes normal. Results AMB Hemoglobin A1c AMB Hemoglobin A1c 6.8 % Last Edit by EREN Bejarano on 08/12/24 10:11 Results Reviewed Results Reviewed: Laboratory Last Values Hgb A1c (Clinic) 6.8 % (4.0-6.0) H 08/12/24 10:10 - Labs: Hemoglobin A1c was 6.8%, indicating a slight improvement from previous levels. - Imaging: DEXA scan confirmed osteopenia. - Imaging: Previous ultrasound showed gallstones and hepatomegaly. Coding Level of Care Code New Pt Level 4 (49763) Complex EM visit Add On G2211 Diagnoses Establishing care with new doctor, encounter for Z76.89 Type 2 diabetes mellitus with hemoglobin A1c goal of less than 7.0% E11.9 Hyperlipidemia E78.5 Hypertension I10 GERD (gastroesophageal reflux disease) K21.9 Osteopenia M85.80 Cholelithiasis K80.20 Hepatomegaly R16.0 History of Helicobacter pylori infection Z86.19 Morbid obesity with BMI of 40.0-44.9, adult E66.01; Z68.41 Additional Codes PHQ-9 - 43900 - PHQ-9 Billing: Yes ([id number]) MARITZA-7 Assessment Billing - MARITZA-7 Assessment Tool: MARITZA-7 Assessment 86859 ([id number]) Assessment & Plan Assessment & Plan (1) Establishing care with new doctor, encounter for: Code(s): Z76.89 - Persons encountering health services in other specified circumstances Category: Medical (2) Type 2 diabetes mellitus with hemoglobin A1c goal of less than 7.0%: Code(s): E11.9 - Type 2 diabetes mellitus without complications Category: Medical Plan: The patient is to continue Trulicity, Jardiance, Lantus 20 units. A1c level 6.8 today. Follow-up in 3 months to assess glycemic control. Condition is chronic and stable will continue current regimen. (3) Hyperlipidemia: Code(s): E78.5 - Hyperlipidemia, unspecified Category: Medical Plan: The patient is to continue atorvastatin for hyperlipidemia management. Condition is chronic and stable continue to monitor. (4) Hypertension: Code(s): I10 - Essential (primary) hypertension Category: Medical Plan: The patient should refill lisinopril and consider switching to losartan if the cough persists. Condition is chronic and stable continue to monitor. (5) GERD (gastroesophageal reflux disease): Code(s): K21.9 - Gastro-esophageal reflux disease without esophagitis Category: Medical Plan: The patient is to continue pantoprazole for GERD management. Condition is chronic and stable continue to monitor. (6) Osteopenia: Code(s): M85.80 - Other specified disorders of bone density and structure, unspecified site Category: Medical Plan: The patient should continue monitoring bone density and consider calcium and vitamin D supplementation. Condition is chronic and stable will continue to monitor. (7) Cholelithiasis: Comment: With sludge on 10/2023 ultrasound but patient does not have symptoms at this time Code(s): K80.20 - Calculus of gallbladder without cholecystitis without obstruction Category: Medical Plan: The patient should follow up on gallstone management as needed. Condition is chronic and stable patient to continue following up with gastroenterology as scheduled. (8) Hepatomegaly: Code(s): R16.0 - Hepatomegaly, not elsewhere classified Category: Medical Plan: The patient should continue monitoring liver function and follow up as needed. Condition is chronic and stable patient to continue following up with gastroenterology as scheduled. (9) History of Helicobacter pylori infection: Comment: 10/2023 stool antigen negative confirms eradication Code(s): Z86.19 - Personal history of other infectious and parasitic diseases Category: Medical Plan: The patient should consider follow-up testing to confirm eradication of Helicobacter pylori. Patient to continue following up with gastroenterology as scheduled. (10) Morbid obesity with BMI of 40.0-44.9, adult: Code(s): E66.01 - Morbid (severe) obesity due to excess calories; Z68.41 - Body mass index [BMI] 40.0-44.9, adult Category: Medical Plan: Patient to improve diet and exercise regimen. Condition is chronic and stable will continue to monitor. Plan Plan Patient was informed and verbally consented to the use of an ambient scribe for clinic note documentation during this visit. 1. Asthma The patient is advised to continue using albuterol as needed for intermittent bronchitis/cough episodes. 2. Hyperlipidemia The patient is to continue atorvastatin for hyperlipidemia management. 3. Type 2 Diabetes Mellitus The patient is to continue Trulicity and Jardiance for diabetes management, with a follow-up in three months to reassess glycemic control. 4. Hypertension The patient should refill lisinopril and consider switching to losartan if the cough persists. 5. Gastroesophageal Reflux Disease (Gerd) The patient is to continue pantoprazole for GERD management. 6. Osteopenia The patient should continue monitoring bone density and consider calcium and vitamin D supplementation. 7. Cholelithiasis The patient should follow up on gallstone management as needed. 8. Hepatomegaly The patient should continue monitoring liver function and follow up as needed. 9. Helicobacter Pylori Gastritis The patient should consider follow-up testing to confirm eradication of Helicobacter pylori. During the visit, we discussed the importance of medication adherence, particularly for hypertension and diabetes management. I advised the patient to continue her current medications and to follow up in three months to reassess her condition. Orders: Orders TSH reflex Free T4 Today Z00.00 - Encounter for general adult medical examination without abnormal findings Vitamin D 25-OH Total Today Z00.00 - Encounter for general adult medical examination without abnormal findings Vitamin B12 and Folate Today Z00.00 - Encounter for general adult medical examination without abnormal findings Magnesium Today Z00.00 - Encounter for general adult medical examination without abnormal findings AMB Hemoglobin A1c Today E11.9 - Type 2 diabetes mellitus without complications Medications: Changed From gabapentin 300 mg PO TID PRN To gabapentin 300 mg PO TID PRN 270 caps 3RF pain 90 days From lisinopril 20 mg PO DAILY To lisinopril 20 mg PO DAILY 90 tabs 3RF 90 days From naproxen 500 mg PO BID PRN To naproxen 500 mg PO BID PRN 90 tabs 3RF pain 90 days Patient Instructions: - Continue using albuterol as needed for intermittent bronchitis/cough episodes - Take atorvastatin daily for cholesterol management. - Continue Trulicity and Jardiance for diabetes management. - Refill lisinopril and consider switching to losartan if cough persists. - Take pantoprazole for GERD management. - Monitor bone density and consider calcium and vitamin D supplementation. - Follow up on gallstone management as needed. - Monitor liver function and follow up as needed. - Consider follow-up testing to confirm eradication of Helicobacter pylori.
[2024-08-12 09:30] VITALS: BP 135/58; PULSE 62; RESP 16; TEMP 36.8; O2SAT 98; BMI 40.2
== END 2024-08-12 10:16 | disposition home or self-care (01) ==
LOC: HO.HMCSH 08:49
PROVIDERS: PCP Physician Assistant Medical; Visit Provider Physician Assistant Medical
DX: Z76.89 Persons encountering health services in other specified circumstances (principal); E11.9 Type 2 diabetes mellitus without complications; E78.5 Hyperlipidemia, unspecified; I10 Essential (primary) hypertension; K21.9 Gastro-esophageal reflux disease without esophagitis; M85.80 Other specified disorders of bone density and structure, unspecified site; K80.20 Calculus of gallbladder without cholecystitis without obstruction; R16.0 Hepatomegaly, not elsewhere classified; Z86.19 Personal history of other infectious and parasitic diseases; E66.01 Morbid (severe) obesity due to excess calories; Z68.41 Body mass index [BMI] 40.0-44.9, adult

== ENCOUNTER → 2024-08-12 08:49 | Outpatient (BNVA) | payer OTHER, SELFPAY | PROVIDERS: PCP Physician Assistant Medical; Visit Provider Physician Assistant Medical | DX: I10 Essential (primary) hypertension (principal); K21.9 Gastro-esophageal reflux disease without esophagitis; E11.9 Type 2 diabetes mellitus without complications; E78.5 Hyperlipidemia, unspecified; M85.80 Other specified disorders of bone density and structure, unspecified site; K80.20 Calculus of gallbladder without cholecystitis without obstruction; R16.0 Hepatomegaly, not elsewhere classified; E66.01 Morbid (severe) obesity due to excess calories; J45.909 Unspecified asthma, uncomplicated; Z68.41 Body mass index [BMI] 40.0-44.9, adult; Z76.89 Persons encountering health services in other specified circumstances; Z86.19 Personal history of other infectious and parasitic diseases | CPT/HCPCS: 83036; 96127; 99202 ==

== ENCOUNTER 2024-08-17 08:41 | Outpatient (REF) | payer OTHER, SELFPAY ==
--- OUTSIDE RECORDS SUMMARY | 2024-08-05 09:00 | XMS_ITS ---
Author Organization [facility] Address [address] [place] [address] Care Team Providers Care Water Fitness Instructor Name Role Phone Javier WOOD, Ronni Primary Care Provider UnavailLeonarda Garcia [facility] [phone] Encounters Encounter Location Date Provider Diagnosis [facility] [address] [place] [address] 08/05/2024 Leonarda Martinez Plan Of Treatment No Information Progress Notes * Radha CAMERONDOB:1960 (64 yo F)Acc No.[id number]:08/05/2024 Progress Notes Patient: Radha RUELAS Provider: Es Martinez DPM :1960 A ge:64 Y S ex:Female Date:08/05/2024 Address:[facility] [address] , [facility] Pcp:Ronni Herrera MD Subjective: * Chief Complaints: [...] Date: 08/05/2024 Generated for Sanju maria/Julia/Innaitting on: 08/17/2024 08:52 AM EDT
--- OUTSIDE RECORDS SUMMARY | 2024-08-17 08:53 | XMS_ITS | Data Portability ---
Demographics Address [address] [place] [address] Home Phone Preferred Language Unknown Marital Status Unknown Scientologist Affiliation Unknown Race Unknown Ethnic Group Unknown Author Organization [employer] [place] [facility] Address [address] [place] [address] Care Team Providers Care Research Chef Name Role Phone HIM CCA OTHER SILVIOHannahVISHNU Primary Care Provider Assessment Encounter Date Assessment Date Assessment LastModified by Organization Details LastModified Time 11/05/2023 11/05/2023 I have reviewed and agree with the assessment and plan as documented by the changeover operator. I provided real-time medical direction for this [...] in the field was performed by my changeover operator colleague, as noted above, I provided real-time [...] specimen 2023 024 [facility], [address] [place] [address], [phone] 4 18:01:58 rapid flu (A+B) 2023 024 [facility], [address] [place] [address], [phone] 4 18:01:56 Referral None recorded. Procedures None recorded. Surgeries None recorded. Imaging None recorded. Medication Orders albuterol sulfate 2.5 mg/3 mL (0.083 %) solution for nebulizatio n 2024 025 [email or web address] [id number], [address] [place], [address], 5 21:42:04 benzonatate 200 mg capsule 2024 025 [facility] #[id number], [address] [place], [address], 5 21:46:34 benzonatate 100 mg capsule 2024 025 [email or web address] [id number], [address] [place], [address], 5 21:46:32 albuterol sulfate HFA 90 mcg/actuati on aerosol inhaler 2024 025 [id number], [address] [place], [address], 5 21:46:34 Flonase Allergy Relief 50 mcg/actuati on nasal spray,suspe nsion 2023 024 [facility][id number], [address] [facility], [place], [address], 4 18:01:59 Patient TargetsNo targets recorded. Patient InstructionsNo instructions recorded. Reason for Referral None Reported. Results Created Date Observation Date Name Description Value Unit Range Abnormal Flag Note LastModifiedBy Organization Detail LastModifiedTime 11/05/1911/05/2023 rapid flu (A+B) Flu negati ve Not Available [facility] - [facility] ed [address] [place] [address], [phone] 11/05/2023 17:59:50 11/05/1911/05/2023 rapid SARS CoV 2 Ag, QL IA, respi rator y speci men rapid SARS CoV 2 Ag, QL IA, respiratory specimen negati ve Not Available [facility] ed [address] [place] [address], [phone] 11/05/2023 17:59:49 Result Notes None recorded. Medical [...] blood by Pulse oximetry Heart rate Systolic And Diastolic Provider Name and Address Organization Details Last Updated DateTime 5 18 /min 98.6 [degF] 07034.8 48 g 147.32 cm 99 % 99 % 86 /min 121/83 mm[Hg] Not Available [facility] - production 21:38:58 Date Recorded Body weight Respiratory rate Heart rate Body height Body temperature Oxygen saturation Oxygen saturation in Arterial blood by Pulse oximetry Systolic And Diastolic Provider Name and Address Organization Details Last Updated DateTime 4 97795.2 96 g 16 /min 71 /min 152.4 cm 98.2 [degF] 98 % 98 % 125/69 mm[Hg] Not Available [facility] - production 4 [...] SNOMED-CT Code Diagnosis ICD10 Code Diagnosis Note [id number] Aaliyah Phelan MD Main - [facility] [address] [place] [phone] 11/05/2023 17:58:18 11/05/2023 21:05:26 Viral upper respiratory tract infection [id number] J06.9 [id number] Sherrell Mckeon MD Main - [facility] [address] [place] [phone] 03/22/2024 21:38:54 03/23/2024 15:21:47 Cough [id number] R05.9 Health Concerns Section Related Observation LastModified by Organization Detai ls LastModified Time None Recorded Concern Status LastModified by Organization Details LastModified Time None Recorded Advance Directives Directive None Recorded Payers Insurance Date Sequence Insurance Name Policy Number Policy Capone Covered Member ID Capone Member ID Guarantor Name 03/23/2024 1 [facility] - DOS ON OR AFTER 2022 - DUAL ELIGIBLE - CORRECTION OPTIONS AND ONE CARE (MEDICARE REPLACEMENT/ADV ANTAGE - HMO) Radha Camilo [id number] Radha Camilo Notes Date Note Type Note [...] emergency treatment if needed. Juan Duque RN Pet Trainer Organization Information for Jeremy Morales Business Legal Name: [facility] Address: [address] [place] [address], [place] [address], Crochet Machine Operator: Seth Aguilera MD [facility] No.: [id number] Pet Trainer POC Test Results from Jeremy Morales Rapid influenza antigen (17:56:07) Flu: - Rapid COVID antigen (17:56:09) COVID: - .................... .................... .................... .................... .................... .................... .................... . Pet Trainer Note From Jeremy Morales: Pt reports sinus [...] .................... . Disposition: Alexa Aaliyah Phelan MD [address] [place] [address],[address], [place], [phone], [employer] 11/05/2023 19:29:48 03/22/2024 text/html CRC Nurse Triage [...] emergency treatment if needed. Juan Duque RN Pet Trainer Organization Information for [employer] Business Legal Name: [employer] Address: [address] [place] [address], Crochet Machine Operator: Brian Mcmahon MD CLIA No.: [id number] Pet Trainer POC Test Results from [employer] [facility] Rapid COVID antigen (21:34:38) COVID: - Rapid influenza antigen (21:34:39) Flu: - .................... .................... .................... .................... .................... .................... .................... . Pet Trainer Note From Sonia Xie: KSShavonne makes pt contact. She is found sitting upright in a chair in her bedroom, covered w/ a blanket. She watches [facility] enter the room and says hello. She [...] the coughing. [facility] obtains vital signs and assesses pt. Lung sounds are clear and equal to auscultation and remaining assessment is unremarkable. Pt is swabbed for COVID/flu and found to be negative. [facility] contacts [facility] and discusses the above. [facility] orders an albuterol breathing treatment and 200mg benzonatate PO and calls in a prescription for an inhaler and the cough suppressant for the pt. [facility] administers 2.5mg albuterol through nebulizer at 8 lpm O2, utilizing a nebulizer mask. Pt tolerates breathing treatment well. Lung sounds are reassessed and pt remains clear w/ improved air movement. She thanks [facility] for coming. [facility] is clear. Report completed by JEN Xie [id number]. .................... .................... .................... .................... .................... .................... .................... . [facility] Consulted: Sherrell Mckeon .................... .................... .................... .................... .................... .................... .................... . Disposition: Fulfilled Sherrell Mckeon MD [address] [place] [address],[address] [facility], [place], [phone], [employer] 03/23/2024 01:31:45 OBGyn Episode No OBEpisode recorded.
== END 2024-08-17 08:42 | disposition home or self-care (01) ==
LOC: HO.CT 08:41
PROVIDERS: Visit Provider Nurse Practitioner
DX: Z13.89 Encounter for screening for other disorder (principal)

== ENCOUNTER 2024-08-24 10:16 | Outpatient (REF) | payer OTHER, SELFPAY ==
--- OUTSIDE RECORDS SUMMARY | 2024-08-05 09:00 | XMS_ITS ---
Author Organization [facility] Address [address] [place] [address] Care Team Providers Care Medical Coding Technician Name Role Phone Javier WOOD, Ronni Primary Care Provider UnavailLeonarda Garcia [facility] [phone] Encounters Encounter Location Date Provider Diagnosis [facility] [address] [place] [address] 08/05/2024 Leonarda Martinez Plan Of Treatment No Information Progress Notes * Radha CAMERONDOB:1960 (64 yo F)Acc No.[id number]:08/05/2024 Progress Notes Patient: Radha RUELAS Provider: Es Martinez DPM :1960 A ge:64 Y S ex:Female Date:08/05/2024 Address:[facility] [address] , [facility] Pcp:Ronni Herrera MD Subjective: * Chief Complaints: [...] Date: 08/05/2024 Generated for Sanju maria/Julia/Innaitting on: 08/24/2024 10:59 AM EDT
--- OUTSIDE RECORDS SUMMARY | 2024-08-24 11:00 | XMS_ITS | Data Portability ---
Demographics Address [address] [place] [address] Home Phone Preferred Language Unknown Marital Status Unknown Congregational Affiliation Unknown Race Unknown Ethnic Group Unknown Author Organization [facility] [place] [place] [facility] Address [address] [place] [address] Care Team Providers [employer] Membership Sales Agent Name Role Phone HIM CCA OTHER SILVIOHannahVISHNU Primary Care Provider Assessment Encounter Date Assessment Date Assessment LastModified by Organization Details LastModified Time 11/05/2023 11/05/2023 I have reviewed and agree with the assessment and plan as documented by the sandstone splitter. I provided real-time medical direction for this [...] in the field was performed by my sandstone splitter colleague, as noted above, I provided real-time [...] Ag, QL IA, respiratory specimen 2023 024 [facility], [address] [place] [address], [phone] 4 18:01:58 rapid flu (A+B) 2023 024 [facility], [address] [place] [address], [phone] 4 18:01:56 Referral None recorded. Procedures None recorded. Surgeries None recorded. Imaging None recorded. Medication Orders albuterol sulfate 2.5 mg/3 mL (0.083 %) solution for nebulizatio n 2024 025 [email or web address] [facility] #[id number], [address] [place], [address], 5 21:42:04 benzonatate 200 mg capsule 2024 025 [facility]/Pharmacy #[id number], [address] [place], [address], 5 21:46:34 benzonatate 100 mg capsule 2024 025 [email or web address] [facility] #[id number], [address] [place], [address], 5 21:46:32 albuterol sulfate HFA 90 mcg/actuati on aerosol inhaler 2024 025 [facility]/Pharmacy #[id number], [address] [place], [address], 5 21:46:34 Flonase Allergy Relief 50 mcg/actuati on nasal spray,suspe nsion 2023 024 [facility]/Pharmacy #[id number], [address] [facility], [place], [address], 4 18:01:59 Patient TargetsNo targets recorded. Patient InstructionsNo instructions recorded. Reason for Referral None Reported. Results Created Date Observation Date Name Description Value Unit Range Abnormal Flag Note LastModifiedBy Organization Detail LastModifiedTime 11/05/1911/05/2023 rapid flu (A+B) Flu negati ve Not Available [facility] - [facility] ed [address] [place] [address], [phone] 11/05/2023 17:59:50 11/05/1911/05/2023 rapid SARS CoV 2 Ag, QL IA, respi rator y speci men rapid SARS CoV 2 Ag, QL IA, respiratory specimen negati ve Not Available [facility] - [facility] ed [address] [place] [address], [phone] 11/05/2023 17:59:49 Result Notes None recorded. Medical [...] Updated DateTime 5 18 /min 98.6 [degF] 77270.8 48 g 147.32 cm 99 % 99 % 86 /min 121/83 mm[Hg] Not Available [facility] - production 21:38:58 Date Recorded Body weight Respiratory rate Heart rate Body height Body temperature Oxygen saturation Oxygen saturation in Arterial blood by Pulse oximetry Systolic And Diastolic Provider Name and Address Organization Details Last Updated DateTime 4 10637.2 96 g 16 /min 71 /min 152.4 [...] SNOMED-CT Code Diagnosis ICD10 Code Diagnosis Note [id number] Aaliyah Phelan MD Main - [facility] [address] [place] [phone] 11/05/2023 17:58:18 11/05/2023 21:05:26 Viral upper respiratory tract infection 940068649 J06.9 [id number] Sherrell Mckeon MD Main - [facility] [address] [place] [phone] 03/22/2024 21:38:54 03/23/2024 15:21:47 Cough 69068832 R05.9 Health Concerns Section Related Observation LastModified by Organization Detai ls LastModified Time None Recorded Concern Status LastModified by Organization Details LastModified Time None Recorded Advance Directives Directive None Recorded Payers Insurance Date Sequence Insurance Name Policy Number Policy Capone Covered Member ID Capone Member ID Guarantor Name 03/23/2024 1 [facility] - DOS ON OR AFTER 2022 - DUAL ELIGIBLE - RETIREMENT OPTIONS AND ONE CARE (MEDICARE REPLACEMENT/ADV ANTAGE - HMO) Radha Camiol [id number] Radha Camilo Notes Date Note Type Note [...] emergency treatment if needed. Juan Duque RN [employer] Organization Information for Jeremy Morales Business Legal Name: [facility] Address: [address] [place] [address], [place] [address], Can Cutter: Seth Aguilera MD [facility] No.: [id number] [employer] POC Test Results from Jeremy Morales Rapid influenza antigen (17:56:07) Flu: - Rapid COVID antigen (17:56:09) COVID: - .................... .................... .................... .................... .................... .................... .................... . [employer] Note From Jeremy Morales: Pt reports sinus [...] .................... . Disposition: Alexa Aaliyah Phelan MD [address] [place] [address],[address], [place], [phone], [employer] 11/05/2023 19:29:48 03/22/2024 text/html CRC Nurse Triage [...] emergency treatment if needed. Juan Duque RN [employer] Organization Information for Sonia Xie [employer] Business Legal Name: [employer]. Address: [address] [place] [address], Can Cutter: Brian Mcmahon MD CLIA No.: [id number] [employer] Curer POC Test Results from Sonia Xie [employer] Rapid COVID antigen (21:34:38) COVID: - Rapid influenza antigen (21:34:39) Flu: - .................... .................... .................... .................... .................... .................... .................... . [employer] C[employer] Note From Sonia Xie: COShavonne makes pt contact. She is found sitting upright in a chair in her bedroom, covered w/ a blanket. She watches [facility] enter the room and says hello. She [...] Pt is wanting evaluation for the coughing. [facility] obtains vital signs and assesses pt. Lung sounds are clear and equal to auscultation and remaining assessment is unremarkable. Pt is swabbed for COVID/flu and found to be negative. [facility] contacts [facility] and discusses the above. [facility] orders an albuterol breathing treatment and 200mg benzonatate PO and calls in a prescription for an inhaler and the cough suppressant for the pt. [facility] administers 2.5mg albuterol through nebulizer at 8 lpm O2, utilizing a nebulizer mask. Pt tolerates breathing treatment well. Lung sounds are reassessed and pt remains clear w/ improved air movement. She thanks [facility] for coming. [facility] is clear. Report completed by JEN Xie [id number]. .................... .................... .................... .................... .................... .................... .................... . [facility] Consulted: Sherrell Mckeon .................... .................... .................... .................... .................... .................... .................... . Disposition: Fulfilled Sherrell Mckeon MD [address] [place] [address],[address] [facility], [place], [phone], [facility] 03/23/2024 01:31:45 OBGyn Episode No OBEpisode recorded.
[2024-08-24 11:53] LABS: Blood Urea Nitrogen 21 mg/dL (9-16); Estimated Glomerular Filt Rate > 60; Magnesium 2.0 mg/dL (1.6-2.6)
[2024-08-24 12:26] LABS: Folate 9.2 ng/mL (> or = 4.0); Vitamin B12 263 pg/mL (200-900)
== END 2024-08-24 10:17 | disposition home or self-care (01) ==
LOC: HO.LAB 10:16
PROVIDERS: Nurse Practitioner; PCP Physician Assistant Medical; Visit Provider Physician Assistant Medical
DX: Z00.00 Encounter for general adult medical examination without abnormal findings (principal); R10.84 Generalized abdominal pain
CPT/HCPCS: 36415; 82306; 82565; 82607; 82746; 83735; 84443; 84520

== ENCOUNTER 2024-09-04 08:52 | Outpatient (AMB) | payer OTHER, SELFPAY ==
--- OUTSIDE RECORDS SUMMARY | 2024-08-05 09:00 | XMS_ITS ---
Author Organization [facility] Address [address] [place] [address] Care Team Providers Care Service Learning Coordinator Name Role Phone Javier WOOD, Ronni Primary Care Provider UnavailLeonarda Garcia [facility] [phone] Encounters Encounter Location Date Provider Diagnosis [facility] [address] [place] [address] 08/05/2024 Leonarda Martinez Plan Of Treatment No Information Progress Notes * Radha CAMERONDOB:1960 (64 yo F)Acc No.[id number]:08/05/2024 Progress Notes Patient: Radha RUELAS Provider: Es Martinez DPM :1960 A ge:64 Y S ex:Female Date:08/05/2024 Address:[facility] [address] , [facility] Pcp:Ronni Herrera MD Subjective: * Chief Complaints: [...] Date: 08/05/2024 Generated for Sanju maria/Julia/Innaitting on: 09/04/2024 09:07 AM EDT
[2024-09-04 09:02] VITALS: BP 102/52; PULSE 79; BMI 40.5
--- NOTE | 2024-09-04 09:02 | MHC.OFFVIS ---
Vital Signs 09/04/24 09:02 Height 4 ft 10 in Weight 193 lb 9.054 oz BMI 40.5 BP 102/52 L Blood Pressure Location Lt brachial Position Sitting Pulse 79 Intake Visit Reasons: GB sludge, abd pain Allergies No Known Allergies Allergy (Verified 09/04/24 09:14) HPI HPI GB sludge, abd pain: Details: Assessment & Plan (1) GERD (gastroesophageal reflux disease): Code(s): K21.9 - Gastro-esophageal reflux disease without esophagitis Category: Medical (2) Generalized abdominal pain: Code(s): R10.84 - Generalized abdominal pain Category: Medical (3) Cholelithiasis: Comment: With sludge on 10/2023 ultrasound but patient does not have symptoms at this time Code(s): K80.20 - Calculus of gallbladder without cholecystitis without obstruction Category: Medical Plan English # son translates per patient request She is here today with her son who translates. He says that her epigastric pain now is more intermittent and they credits this to discovering dietary triggers that she needs to avoid. Apparently these triggers are overly greasy foods, as would be expected, and overly spicy foods. With this in the pantoprazole she has been feeling somewhat better. She never tried the Reglan so will take this off her list. She does have gallbladder sludge so I educate them a this would particularly set off the gallbladder and she may benefit from a trial of Creon to help rest the gallbladder in case she does have some dietary indiscretions. She is agreeable to trying this. Apparently the son says that his mother is very focused on doing a ?whole-body scan? to find out if everything is all right. I let them know that you can not just order that and have insurance pay for it without good clinical indications. However, we can probably get a CAT scan of the abdomen and pelvis given her ongoing problems with abdominal pain. However, I let them know that I think that the known finding of gallbladder sludge is as much the problem is anything else. We will continue her pantoprazole 40 mg twice a day. Return office visit in 8 weeks Orders: Orders Blood Urea Nitrogen Today R10.84 - Generalized abdominal pain Creatinine Today R10.84 - Generalized abdominal pain CT abdomen pelvis w IV con Today R10.84 - Generalized abdominal pain Medications: New joolkd-jzczdqnv-fpwuufv 36,000-114,000- 180,000 unit (Creon) administer with meals and/or snacks 2 caps PO BID 120 caps 6RF K80.20 - Calculus of gallbladder without cholecystitis without obstruction, R10.84 - Generalized abdominal pain pantoprazole 40 mg PO BID 60 tabs 6RF K21.9 - Gastro-esophageal reflux disease without esophagitis Refilled pantoprazole 40 mg PO BID 60 tabs 6RF K21.9 - Gastro-esophageal reflux disease without es LABS: Laboratory Tests 08/24/24 10:37 BUN 21 H Creatinine 0.86 Estimated GFR > [address] ABDOMEN AND PELVIS 09/07/2024 TODAY'S VISIT The CT is Saturday, apparently they showed up for it a couple of weeks ago but they said you did not get the drink? Usually, recently, this was being done in hospital r/t insurance coverage. I will send it, but they have cost concerns and I don't know the parham. I will have my staff call [facility] and see and call radiology to arrange. ROV after CT She stopped the creon because it caused CIC and gas. [facility] Medical History (Updated 08/12/24 @ 11:07 by Meredith Mosley PA-C) Osteopenia determined by dual energy x-ray photon absorptiometry (DEXA) scan of hip (~01/07/24) History of mammogram (~01/07/24) History of Helicobacter pylori infection Hepatomegaly Osteopenia (~01/07/24) Morbid obesity with BMI of 40.0-44.9, adult Hypertension Hyperlipidemia Type 2 diabetes mellitus with hemoglobin A1c goal of less than 7.0% Establishing care with new doctor, encounter for Surgical History Status post total left knee replacement H/O colonoscopy History of esophagogastroduodenoscopy (EGD) Family History Father Cancer of lung Mother Arthritis Social History Household Members: Family Housing: Apartment Alcohol intake: current Alcohol intake frequency: does not drink Patient Tobacco Use Status: Never used Tobacco service: No Current occupational status: retired Cognitive needs: Yes (walker) Hearing needs: No Vision needs: Yes (reading glasses) Review of Systems Const Denies fatigue, Denies fever(s), Denies night sweats, Denies poor appetite and Denies weight loss ENT Reports Normal hearing present, Denies dental pain, Denies dysphagia, Denies hearing loss, Denies mouth pain, Denies odynophagia, Denies throat swelling, Denies tongue swelling and Reports other (Dentition adequate) Card Reports no additional complaints Resp Reports no additional complaints GI Details: Reports abdominal pain, Denies melena, Reports bloating, Denies hematochezia, Denies constipation, Denies GI cramping, Denies dysphagia, Denies excessive flatus, Denies early satiety, Denies heartburn, Denies diarrhea, Denies nausea, Denies odynophagia, Denies vomiting and Denies hematemesis Skin/Breast Denies pruritus, Denies lesions, Denies rash and Denies jaundice Neuro Reports Normal hearing present and Denies Abnormal speech present Endo Denies fatigue Aller/Immun Denies throat swelling and Denies tongue swelling Physical Exam Vital Signs: Last Vital Signs Pulse 79 09/04/24 09:02 BP 102/52 L 09/04/24 09:02 BMI result Body Mass Index 40.5 Const General: cooperative, no acute distress, well developed and well groomed Nutritional Appearance: well nourished and obese Orientation/consciousness: oriented to person, oriented to place and oriented to time Limitations: language barrier HEENT Head: Yes normocephalic and Yes atraumatic Eyes General: appearance normal, both eyes and all related structures Pupils: Equal, round and reactive pupils present Neck Neck: Yes normal visual inspection and Yes no lymphadenopathy Thyroid: Thyroid normal Resp Effort & Inspection: normal respiratory effort and able to speak in complete sentences Auscultation: clear to auscultation bilaterally Cardio Rate: regular rate Rhythm: regular rhythm Heart sounds: Normal, physiologic split S2 sound present Peripheral pulses: radial pulses present and posterior tibial pulses present GI Inspection: No distended, Yes Abdominal panniculus present and Yes obesity Palpation (GI): Soft to palpation, nontender, no guarding, not rigid and No hepatosplenomegaly present Percussion: Yes normal to percussion Auscultation: normal bowel sounds Rectal Exam - Female: deferred Skin General skin exam: no rashes or lesions noted, turgor normal, skin not dry, no jaundice, No spider nevi and no striae Rashes: no rashes Nails: normal Neuro General: oriented to person, oriented to place and oriented to time Cranial nerves: Yes Equal, round and reactive pupils present and Yes Normal hearing present Speech: No Abnormal speech present Extrem General: Yes normal to inspection, No clubbing, No cyanosis and No edema Psych Appearance: grossly normal and well kempt Mental Status: mental status grossly normal Speech and movement: Normal speech and movement present Affect: normal affect Attitude: cooperative Thought process: Normal thought process present and not confabulating Thought content: Normal thought content present Insight: Limited insight present (Psych) Judgement: Limited judgement present (Psych) Assessment & Plan Assessment & Plan (1) GERD (gastroesophageal reflux disease): Code(s): K21.9 - Gastro-esophageal reflux disease without esophagitis Category: Medical (2) Cholelithiasis: Comment: With sludge on 10/2023 ultrasound but patient does not have symptoms at this time Code(s): K80.20 - Calculus of gallbladder without cholecystitis without obstruction Category: Medical Plan The CT is Saturday, apparently they showed up for it a couple of weeks ago but they said you did not get the drink? Usually, recently, this was being done in hospital r/t insurance coverage. I will send it, but they have cost concerns and I don't know the parham. I will have my staff call [place] and see and call radiology to arrange. ROV after CT She stopped the creon because it caused CIC and ga Medications: New barium sulfate 2%(w/v) (Readi-Cat 2) 300 mL PO ONCE 300 mL 0RF 1 day Coding Level of Care Code Est Pt Level 3 (46610) Diagnoses GERD (gastroesophageal reflux disease) K21.9 Cholelithiasis K80.20
--- NOTE | 2024-09-04 09:02 | MHC.OFFVIS ---
Vital Signs 09/04/24 09:02 Height 4 ft 10 in Weight 193 lb 9.054 oz BMI 40.5 BP 102/52 L Blood Pressure Location Lt brachial Position Sitting Pulse 79 Intake Visit Reasons: GB sludge, abd pain Intake Note: Radha presents in follow up of abd pain and to review lab results. CC: Patient states that she took the Creon for a few days and discontinued it because it caused her constipation and increased gas. Infrastructure Developer Required: Yes Infrastructure Developer Services: Infrastructure Developer Offered & Declined Infrastructure Developer Name: son will interpret for PT Accompanied by: Son Allergies No Known Allergies Allergy (Verified 08/12/24 10:52) [facility] Medical History (Updated 08/12/24 @ 11:07 by Meredith Mosley PA-C) Osteopenia determined by dual energy x-ray photon absorptiometry (DEXA) scan of hip (~01/07/24) History of mammogram (~01/07/24) History of Helicobacter pylori infection Hepatomegaly Osteopenia (~01/07/24) Morbid obesity with BMI of 40.0-44.9, adult Hypertension Hyperlipidemia Type 2 diabetes mellitus with hemoglobin A1c goal of less than 7.0% Establishing care with new doctor, encounter for Surgical History Status post total left knee replacement H/O colonoscopy History of esophagogastroduodenoscopy (EGD) Family History Father Cancer of lung Mother Arthritis Social History Household Members: Family Housing: Apartment Alcohol intake: current Alcohol intake frequency: does not drink Patient Tobacco Use Status: Never used Tobacco service: No Current occupational status: retired Cognitive needs: Yes (walker) Hearing needs: No Vision needs: Yes (reading glasses) Coding
--- OUTSIDE RECORDS SUMMARY | 2024-09-04 09:07 | XMS_ITS | Data Portability ---
Demographics Address [address] [place] [address] Home Phone Preferred Language Unknown Marital Status Unknown Baptism Affiliation Unknown Race Unknown Ethnic Group Unknown Author Organization [employer] [place] [employer] [facility] Address [address] [place] [address] Care Team Providers Care Order Taker Name Role Phone HIM CCA OTHER SILVIOHannahVISHNU Primary Care Provider Assessment Encounter Date Assessment Date Assessment LastModified by Organization Details LastModified Time 11/05/2023 11/05/2023 I have reviewed and agree with the assessment and plan as documented by the field care manager. I provided real-time medical direction for this [...] in the field was performed by my field care manager colleague, as noted above, I provided real-time [...] Ag, QL IA, respiratory specimen 2023 024 [facility], [address] [place] [address], [id number] 4 18:01:58 rapid flu (A+B) 2023 024 [facility], [address] [place] [address], [phone] 4 18:01:56 Referral None recorded. Procedures None recorded. Surgeries None recorded. Imaging None recorded. Medication Orders albuterol sulfate 2.5 mg/3 mL (0.083 %) solution for nebulizatio n 2024 025 [email or web address] [facility]/Pharmacy #[id number], [address] [place], [address], 5 21:42:04 benzonatate 200 mg capsule 2024 025 [facility]/Pharmacy #0373, [address] [place], [address], 5 21:46:34 benzonatate 100 mg capsule 2024 025 [email or web address] [facility]/Pharmacy #0373, [address] [place], [address], 5 21:46:32 albuterol sulfate HFA 90 mcg/actuati on aerosol inhaler 2024 025 [facility]/Pharmacy #0373, [address] [place], [address], 5 21:46:34 Flonase Allergy Relief 50 mcg/actuati on nasal spray,suspe nsion 2023 024 [facility]/Pharmacy #[id number], [address] [facility], [place], [address], 4 18:01:59 Patient TargetsNo targets recorded. Patient InstructionsNo instructions recorded. Reason for Referral None Reported. Results Created Date Observation Date Name Description Value Unit Range Abnormal Flag Note LastModifiedBy Organization Detail LastModifiedTime 11/05/1911/05/2023 rapid flu (A+B) Flu negati ve Not Available Main - [facility] ed [address] [place] [address], [phone] 11/05/2023 17:59:50 11/05/1911/05/2023 rapid SARS CoV 2 Ag, QL IA, respi rator y speci men rapid SARS CoV 2 Ag, QL IA, respiratory specimen negati ve Not Available [facility] - [facility] ed [address] [place] [address], [phone] 11/05/2023 17:59:49 Result Notes None recorded. Medical [...] Updated DateTime 5 18 /min 98.6 [degF] 91880.8 48 g 147.32 cm 99 % 99 % 86 /min 121/83 mm[Hg] Not Available [facility] - production 21:38:58 Date Recorded Body weight Respiratory rate Heart rate Body height Body temperature Oxygen saturation Oxygen saturation in Arterial blood by Pulse oximetry Systolic And Diastolic Provider Name and Address Organization Details Last Updated DateTime 4 53939.2 96 g 16 /min 71 /min 152.4 [...] SNOMED-CT Code Diagnosis ICD10 Code Diagnosis Note [id number] Aaliyah Phelan MD Main - [facility] [address] [place] [phone] 11/05/2023 17:58:18 11/05/2023 21:05:26 Viral upper respiratory tract infection 872357048 J06.9 [id number] Sherrell Mckeon MD Main - [facility] [address] [place] [phone] 03/22/2024 21:38:54 03/23/2024 15:21:47 Cough 65113672 R05.9 Health Concerns Section Related Observation LastModified by Organization Detai ls LastModified Time None Recorded Concern Status LastModified by Organization Details LastModified Time None Recorded Advance Directives Directive None Recorded Payers Insurance Date Sequence Insurance Name Policy Number Policy Capone Covered Member ID Capone Member ID Guarantor Name 03/23/2024 1 [facility] - DOS ON OR AFTER 2022 - DUAL ELIGIBLE - USP OPTIONS AND ONE CARE (MEDICARE REPLACEMENT/ADV ANTAGE - HMO) Radha Camilo [id number] Radha Camilo Notes Date Note Type Note [...] emergency treatment if needed. Juan Duque RN Reproductive Surgeon Organization Information for Jeremy Morales Business Legal Name: [facility] Address: [address] [place] [address], [place] [address], Primary Montessori Teacher: Seth Aguilera MD [facility] No.: [id number] Reproductive Surgeon POC Test Results from Jeremy Morales Rapid influenza antigen (17:56:07) Flu: - Rapid COVID antigen (17:56:09) COVID: - .................... .................... .................... .................... .................... .................... .................... . Reproductive Surgeon Note From Jeremy Morales: Pt reports sinus [...] .................... . Disposition: Alexa Aaliyah Phelan MD [address] [place] [address],[address], [place], [phone], [employer] 11/05/2023 19:29:48 03/22/2024 text/html ROS as noted in the HPI CRC Nurse Triage Notes (Shobha Duque - [...] emergency treatment if needed. Juan Duque RN Reproductive Surgeon Organization Information for Sonia Xie [place] [employer] Business Legal Name: [email or web address]. Address: [address] [place] [address], Primary Montessori Teacher: Brian Mcmahon MD CLIA No.: [id number] Reproductive Surgeon POC Test Results from [employer] Rapid COVID antigen (21:34:38) COVID: - Rapid influenza antigen (21:34:39) Flu: - .................... .................... .................... .................... .................... .................... .................... . Reproductive Surgeon Note From Sonia Xie: [facility] makes pt contact. She is found sitting upright in a chair in her bedroom, covered w/ a blanket. She watches [facility] enter the room and says hello. [...] Pt is wanting evaluation for the coughing. [facility] obtains vital signs and assesses pt. Lung sounds are clear and equal to auscultation and remaining assessment is unremarkable. Pt is swabbed for COVID/flu and found to be negative. [facility] contacts [facility] and discusses the above. [facility] orders an albuterol breathing treatment and 200mg benzonatate PO and calls in a prescription for an inhaler and the cough suppressant for the pt. [facility] administers 2.5mg albuterol through nebulizer at 8 lpm O2, utilizing a nebulizer mask. Pt tolerates breathing treatment well. Lung sounds are reassessed and pt remains clear w/ improved air movement. She thanks [facility] for coming. [facility] is clear. Report completed by JEN Xie [id number]. .................... .................... .................... .................... .................... .................... .................... . [facility] Consulted: Sherrell Mckeon .................... .................... .................... .................... .................... .................... .................... . Disposition: Fulfilled Sherrell Mckeon MD [address] [place] [address],[address], [place], [address], [employer] 03/23/2024 01:31:45 OBGyn Episode No OBEpisode recorded.
== END 2024-09-04 12:15 | disposition home or self-care (01) ==
LOC: HO.HGI 08:53
PROVIDERS: PCP Internal Medicine; Visit Provider Nurse Practitioner
DX: K21.9 Gastro-esophageal reflux disease without esophagitis (principal); K80.20 Calculus of gallbladder without cholecystitis without obstruction
CPT/HCPCS: 99213

== ENCOUNTER → 2024-09-04 08:52 | Outpatient (BNVA) | payer OTHER, SELFPAY | PROVIDERS: PCP Internal Medicine; Visit Provider Nurse Practitioner | DX: K21.9 Gastro-esophageal reflux disease without esophagitis (principal); K80.20 Calculus of gallbladder without cholecystitis without obstruction | CPT/HCPCS: 99212 ==

== ENCOUNTER 2024-09-07 08:19 | Outpatient (REF) | payer OTHER, SELFPAY ==
--- NOTE | ~2024-09-07 | CT_ITS ---
EXAMINATION: CT ABDOMEN PELVIS WITH IV CONTRAST HISTORY: R10.84 - Generalized abdominal pain COMPARISON: Correlation is made with an abdominal ultrasound dated 09/19/2023. TECHNIQUE: CT scan of the abdomen and pelvis was performed following administration of 85 mL Omnipaque 350 using standard departmental protocol. Coronal and sagittal reformatted images were generated and reviewed. Oral contrast material was not administered at the request of the referring physician. This CT exam was performed with one or more of the following dose reduction techniques: automated exposure control, adjustment of the mA and/or kV according to patient size, use of iterative reconstruction technique. DLP: 513 mGy-cm FINDINGS: LOWER CHEST: The visualized lung bases are clear. There is no pleural effusion. CARDIOVASCULATURE: The heart is normal in size. There is no pericardial effusion. LIVER: The liver is normal in size and contour. No liver mass is identified. The hepatic and portal veins are patent. GALLBLADDER / BILE DUCTS: The gallbladder is unremarkable. There is no intra or extrahepatic biliary ductal dilatation. SPLEEN: The spleen is normal in size. No focal splenic lesion is identified. PANCREAS: The pancreas is unremarkable in appearance. ADRENAL GLANDS: Within normal limits. KIDNEYS/RETROPERITONEUM: No renal calculi are identified. There is no hydronephrosis. No renal masses are identified. LYMPH NODES: No abdominal or pelvic lymphadenopathy. VASCULATURE: The abdominal aorta is normal in caliber. MESENTERY/PERITONEUM: No free fluid. No masses. There is no free intraperitoneal gas. STOMACH: The stomach is collapsed, limiting evaluation. SMALL BOWEL: The small bowel is normal in caliber. COLON: The colon is unremarkable. APPENDIX: Normal. URINARY BLADDER/PELVIC ORGANS: The urinary bladder is collapsed, limiting evaluation. The uterus is unremarkable. BONES / SOFT TISSUES: There is a small fat-containing umbilical hernia. There is degenerative disc disease of the spine. CT/CT abdomen pelvis w IV con IMPRESSION: Small fat-containing umbilical hernia. Otherwise unremarkable contrast-enhanced CT of the abdomen and pelvis. Electronically signed by: Zev Wills MD 09/07/2024 09:43 AM EDT
--- OUTSIDE RECORDS SUMMARY | 2024-09-07 08:30 | XMS_ITS | Data Portability ---
Demographics Address [address] [place] [address] Home Phone Preferred Language Unknown Marital Status Unknown Shinto Affiliation Unknown Race Unknown Ethnic Group Unknown Author Organization [employer] [place] [employer] [facility] Address [address] [place] [address] Care Team Providers Care Die Grinder Name Role Phone HIM CCA OTHER SILVIOHannahVISHNU Primary Care Provider Assessment Encounter Date Assessment Date Assessment LastModified by Organization Details LastModified Time 11/05/2023 11/05/2023 I have reviewed and agree with the assessment and plan as documented by the chiropractic care. I provided real-time medical direction for this [...] in the field was performed by my chiropractic care colleague, as noted above, I provided real-time [...] Ag, QL IA, respiratory specimen 2023 024 [facility], [address] [place] [address], [phone] 4 18:01:58 rapid flu (A+B) 2023 024 [facility], [address] [place] [address], [phone] 4 18:01:56 Referral None recorded. Procedures None recorded. Surgeries None recorded. Imaging None recorded. Medication Orders albuterol sulfate 2.5 mg/3 mL (0.083 %) solution for nebulizatio n 2024 025 [email or web address] [facility]/Pharmacy #0373, [address] [place], [address], 5 21:42:04 benzonatate 200 mg capsule 2024 025 [facility]/Pharmacy #0373, [address] [place], [address], 5 21:46:34 benzonatate 100 mg capsule 2024 025 [email or web address] [facility]/Pharmacy #0373, [address] [place], [address], 5 21:46:32 albuterol sulfate HFA 90 mcg/actuati on aerosol inhaler 2024 025 [facility]/Pharmacy #0373, [address] [place], [address], 5 21:46:34 Flonase Allergy Relief 50 mcg/actuati on nasal spray,suspe nsion 2023 024 [facility]/Pharmacy #8462, [address] [facility], [place], [address], 4 18:01:59 Patient TargetsNo targets recorded. Patient InstructionsNo instructions recorded. Reason for Referral None Reported. Results Created Date Observation Date Name Description Value Unit Range Abnormal Flag Note LastModifiedBy Organization Detail LastModifiedTime 11/05/1911/05/2023 rapid flu (A+B) Flu negati ve Not Available Main - [facility] ed [address] [place] [address], [phone] 11/05/2023 17:59:50 11/05/1911/05/2023 rapid SARS CoV 2 Ag, QL IA, respi rator y speci men rapid SARS CoV 2 Ag, QL IA, respiratory specimen negati ve Not Available [facility] - [facility] ed [address] [place] [address], [phone] 11/05/2023 17:59:49 Result Notes None recorded. Medical [...] Updated DateTime 5 18 /min 98.6 [degF] 94392.8 48 g 147.32 cm 99 % 99 % 86 /min 121/83 mm[Hg] Not Available [facility] - production 21:38:58 Date Recorded Body weight Respiratory rate Heart rate Body height Body temperature Oxygen saturation Oxygen saturation in Arterial blood by Pulse oximetry Systolic And Diastolic Provider Name and Address Organization Details Last Updated DateTime 4 48968.2 96 g 16 /min 71 /min 152.4 [...] SNOMED-CT Code Diagnosis ICD10 Code Diagnosis Note [id number] Aaliyah Phelan MD Main - [facility] [address] [place] [phone] 11/05/2023 17:58:18 11/05/2023 21:05:26 Viral upper respiratory tract infection [id number] J06.9 [id number] Sherrell Mckeon MD Main - [facility] [address] [place] [phone] 03/22/2024 21:38:54 03/23/2024 15:21:47 Cough 33259238 R05.9 Health Concerns Section Related Observation LastModified by Organization Detai ls LastModified Time None Recorded Concern Status LastModified by Organization Details LastModified Time None Recorded Advance Directives Directive None Recorded Payers Insurance Date Sequence Insurance Name Policy Number Policy Capone Covered Member ID Capone Member ID Guarantor Name 03/23/2024 1 [facility] - DOS ON OR AFTER 2022 - DUAL ELIGIBLE - INTERMEDIATE OPTIONS AND ONE CARE (MEDICARE REPLACEMENT/ADV ANTAGE - HMO) Radha Camilo [id number] Radha Camilo OBGyn Episode No OBEpisode recorded.
[2024-09-07] MEDS: iohexoL 350 MG/ML 100 ML INFUS..BTL IV (09:23)
== END 2024-09-07 08:20 | disposition home or self-care (01) ==
LOC: HO.CT 08:19
PROVIDERS: Visit Provider Nurse Practitioner
DX: R10.84 Generalized abdominal pain (principal)
CPT/HCPCS: 74177; Q9967

== ENCOUNTER → 2024-09-07 08:21 | Outpatient (BNV) | payer OTHER, SELFPAY | PROVIDERS: Visit Provider Radiology Diagnostic Radiology | DX: K42.9 Umbilical hernia without obstruction or gangrene (principal) | CPT/HCPCS: 74177 ==

== ENCOUNTER 2024-10-02 23:07 | Emergency (ER) | payer OTHER, SELFPAY ==
[2024-10-02 23:15] VITALS: BP 127/62; PULSE 70; RESP 18; TEMP 36.8; O2SAT 97; BMI 40.2
== END 2024-10-03 01:22 | disposition left against medical advice (07) ==
PROVIDERS: Emergency Provider Emergency Medicine
DX: M54.50 Low back pain, unspecified (principal)
CPT/HCPCS: 99281; 99284

== ENCOUNTER 2024-10-05 12:38 | Outpatient (REF) | payer OTHER, SELFPAY ==
--- OUTSIDE RECORDS SUMMARY | 2024-08-05 09:00 | XMS_ITS ---
Author Organization [facility] Address [address] [place] [address] Care Team Providers Care Library Historian Name Role Phone Javier WOOD, Ronni Primary Care Provider UnavailLeonarda Garcia [facility] [phone] Encounters Encounter Location Date Provider Diagnosis [facility] [address] [place] [address] 08/05/2024 Leonarda Martinez Plan Of Treatment No Information Progress Notes * Radha CAMERONDOB:1960 (64 yo F)Acc No.[id number]:08/05/2024 Progress Notes Patient: Radha RUELAS Provider: Es Mratinez DPM :1960 A ge:64 Y S ex:Female Date:08/05/2024 Address:[facility] [address] , [facility] Pcp:Ronni Herrera MD Subjective: * Chief Complaints: * * Medical History: Objective: * Vitals: Assessment: Plan: * Treatment: * Images: * The named appointment provid er may or may not be the originator of this progress note, and it is not deemed complete until electronically signed by the appointment provider. Sign off status: Pending * Provider: Es Martinez DPM Date: 08/05/2024 Generated for Sanju maria/Julia/Innaitting on: 10/05/2024 01:48 PM EDT
--- NOTE | ~2024-10-05 | XR_ITS ---
Exam: Five-view x-ray L-spine TECHNIQUE: AP, lateral, lateral spot, bilateral oblique views lumbar spine INDICATION: M54.50 - Low back pain, unspecified Prior: August 30, 2024 CT scan FINDINGS: SI joints demonstrate osteophytes anteroinferiorly. There is minimal subchondral sclerosis. There are 5 non-rib bearing lumbar segments. Vertebral body height and alignment is preserved. T12-L1: There is bridging anterior osteophyte and moderate loss of disc height. L1-L2: There is nonbridging anterior osteophytes and mild to moderate loss of disc height with subtle retrolisthesis. There is mild facet sclerosis. L2-L3: There is bridging anterior osteophyte and mild loss of disc height with minimal facet osteophyte formation. There is mild sclerosis of the abutting spinous process. L3-L4: There is minimal loss of disc height and posterior endplate osteophyte formation. There is facet sclerosis and small osteophytes. There is sclerosis and degenerative cystic change in the spinous processes where they abut. L4-L5: There is mild loss of disc height with endplate osteophytes. There is facet sclerosis and osteophytes. Spinous processes abut and appear sclerotic. L5-S1: The disc spaces ill-defined with increased calcification in the disc and moderate loss of disc height. There are anterior bridging osteophytes. There are posterior endplate osteophytes. There is facet sclerosis with osteophytes. Oblique views demonstrate no pars interarticular is defects. XR/XR lumbar spine 4V min IMPRESSION: Multilevel degenerative disc disease and facet osteoarthritis with features of diffuse idiopathic skeletal hyperostosis (DISH). There is abutment of the spinous processes at L2-3, L3-4, and L4-5 which can be the pain sources. Electronically signed by: Benji Nava MD 10/05/2024 01:18 PM EDT
== END 2024-10-05 12:39 | disposition home or self-care (01) ==
LOC: HO.XRAY 12:38
PROVIDERS: PCP Physician Assistant Medical; Visit Provider Physician Assistant Medical
DX: M54.50 Low back pain, unspecified (principal); M53.9 Dorsopathy, unspecified; M48.10 Ankylosing hyperostosis [Forestier], site unspecified; M19.90 Unspecified osteoarthritis, unspecified site
CPT/HCPCS: 72110; 96127; 99212

== ENCOUNTER → 2024-10-05 12:43 | Outpatient (BNV) | payer OTHER, SELFPAY | PROVIDERS: PCP Physician Assistant Medical; Visit Provider Radiology Diagnostic Radiology | DX: M51.360 Other intervertebral disc degeneration, lumbar region with discogenic back pain only (principal) | CPT/HCPCS: 72110 ==

== ENCOUNTER 2024-10-05 14:57 | Outpatient (AMB) | payer OTHER, SELFPAY ==
--- NOTE | 2024-10-05 14:59 | A.OFFPC_ITS ---
Intake Visit Reasons: test results Communication Center Coordinator Required: No Accompanied by: Self / Same As Patient Allergies No Known Allergies Allergy (Verified 10/05/24 15:33) Medication List - Last Reconciled 10/05/24 by Meredith Mosley PA-C albuterol sulfate 90 mcg/actuation inhalation aspirin 1 tab PO DAILY atorvastatin 20 mg PO DAILY barium sulfate 2%(w/v) (Readi-Cat 2) 300 mL PO ONCE 1 day cyclobenzaprine 10 mg PO Q8H dulaglutide (Trulicity) mg subcut QWEEK empagliflozin (Jardiance) 10 mg PO QAM fluticasone propionate 50 mcg/actuation sprays intranasal gabapentin 300 mg PO TID PRN 90 days hydrochlorothiazide 25 mg PO DAILY insulin glargine (Lantus Solostar U-100 Insulin) 20 units subcut latanoprost 0.005% 1 drp ophthalmic (eye) QPM lisinopril 20 mg PO DAILY 90 days naproxen 500 mg PO BID PRN 90 days pantoprazole 40 mg PO BID pen needle, diabetic Check glucose 3 times a day with meals Tobacco use date assessed: 08/12/24 Fall risk assessment: 1 Fall in past year Last assessed Fall Risk: 08/12/24 Dental Screening Dental Screen Date: 08/12/24 Did you have a dental visit in the last 12 months?: No Did you have a dental problem in the last 6 months where you did not have access to dental care?: No HPI test results HPI Details The patient is a 64-year-old female presenting with lower back pain. The pain has been present for approximately one week and is described as tolerable, with increased discomfort when lying down. There is no history of falls, urinary symptoms, abdominal pain, fever, nausea, vomiting, or kidney stones. The patient's x-ray reveals multilevel degenerative disc disease, indicating chronic arthritis in the spine, which can worsen with weather changes or cold temperatures. Additionally, diffuse idiopathic skeletal hyperostosis (DISH) is present, characterized by thickened or calcified ligaments and tendons along the spine, leading to reduced flexibility and potential pain. The patient denies any numbness or tingling in the legs, and the pain does not radiate. The patient has been advised to try physical therapy to alleviate symptoms and improve flexibility. [facility] Medical History (Updated 10/05/24 @ 15:38 by Meredith Mosley PA-C) Chronic arthritis DISH (diffuse idiopathic skeletal hyperostosis) Multilevel degenerative disc disease Lower back pain Osteopenia determined by dual energy x-ray photon absorptiometry (DEXA) scan of hip (~01/07/24) History of mammogram (~01/07/24) History of Helicobacter pylori infection Hepatomegaly Osteopenia (~01/07/24) Morbid obesity with BMI of 40.0-44.9, adult Hypertension Hyperlipidemia Type 2 diabetes mellitus with hemoglobin A1c goal of less than 7.0% Establishing care with new doctor, encounter for Surgical History Status post total left knee replacement H/O colonoscopy History of esophagogastroduodenoscopy (EGD) Family History Father Cancer of lung Mother Arthritis Social History Household Members: Family Housing: Apartment Alcohol intake: current Alcohol intake frequency: does not drink Patient Tobacco Use Status: Never used Tobacco service: No Current occupational status: retired Cognitive needs: Yes (walker) Hearing needs: No Vision needs: Yes (reading glasses) Questionnaire PHQ-9 Over the last 2 weeks, how often have you been bothered by any of the following problems? 1. Little interest or pleasure in doing things: not at all 2. Feeling down, depressed, or hopeless: not at all 3. Trouble falling or staying asleep, or sleeping too much: not at all 4. Feeling tired or having little energy: not at all 5. Poor appetite or overeating: not at all 6. Feeling bad about yourself - or that you are a failure or have let yourself or your family down: not at all 7. Trouble concentrating on things, such as reading the newspaper or watching television: not at all 8. Moving or speaking so slowly that other people could have noticed. Or the opposite - being so fidgety or restless that you have been moving around a lot more than usual: not at all 9. Thoughts that you would be better off or of hurting yourself in some way: not at all Total score: 0 Depression Screening Interpretation: Negative Depression Screening Done: Yes 81132 - PHQ-9 Billing: Yes Source: Developed by Katie Fisher Kurt Kroenke and colleagues, with an educational marycarmen from [employer]. Thrive Questionnaire Date Thrive assessed: 08/12/24 I am a: Patient What is your living situation today?: I have a steady place to live Within the past 12 months, did the food you bought not last and you didn't have the money to get more?: Never true Within the past 12 months, did you worry whether your food would run out before you got money to buy more?: Never true Do you have trouble paying for medicines?: No Do you have trouble getting transportation to medical appointments?: No Do you have trouble paying your heating and electricity bill?: No Do you have trouble taking care of your child, family member or friend?: No Do you have trouble with day-to-day activities such as bathing, preparing meals, shopping, managing finances, etc.?: No Are you currently unemployed and looking for a job?: No Are you interested in more education?: No Please select the resources that you would like help with: None THRIVE Score: 0 AUDIT C Alcohol Use Questionnaire (AUDIT-C) 1. How often do you have a drink containing alcohol?: Never 3. How often do you have six or more drinks on one occasion?: Never Total Score: 0 Score Reviewed/Action Taken: No MARITZA-7 AMB Questionnaire MARITZA-7 Date MARITZA - 7 assessed: 08/12/24 Feeling nervous, anxious, or on edge: 0 = Not at all Not being able to stop or control worryin = Not at all Worrying too much about different things: 0 = Not at all Trouble relaxin = Not at all Being so restless that it is hard to sit still: 0 = Not at all Becoming easily annoyed or irritable: 0 = Not at all Feeling afraid as if something awful might happen: 0 = Not at all Total MARITZA-7 score (0-4 normal; 5-9 mild; 10-14 moderate; 15-21 severe): 0 Source: Developed by Katie Fisher Kurt Kroenke and colleagues, with an educational marycarmen from [employer]. MARITZA-7 Assessment Billing MARITZA-7 Assessment Tool: MARITZA-7 Assessment 51366 Review of Systems Const Details: - Musculoskeletal: Reports lower back pain for one week, worsens when lying down. Denies numbness or tingling in the legs. - Genitourinary: Denies dysuria, hematuria, or abnormal discharge. - Gastrointestinal: Denies abdominal pain, nausea, or vomiting. - Neurological: Denies numbness, tingling, or radiating pain. All systems reviewed & are unremarkable except as noted in HPI and below Physical exam (Primary Care) Tobacco/Smoking Status: Tobacco use Status Tobacco use date assessed 08/12/24 10/05/24 15:04 Patient Tobacco Use Status Never used Tobacco 10/05/24 15:04 PHQ-9: PHQ-9 Score PHQ-9: Total score 0 10/05/24 15:04 Depression Screening Interpretation: Negative Thrive Assessment: Date of Thrive Assessment Date Thrive assessed 08/12/24 10/05/24 15:04 Telehealth Telehealth Telehealth Platform: Telephone Location of provider rendering services: practice address Location of patient: address on file Patient Identification confirmed using: Name, : Yes Telehealth method: voice only Patient verbally consented to treatment: Yes Patient verbally consented to billing insurance company: Yes Patient informed of any privacy concerns related to visit: Yes Minutes spent on Phone/Video with Pt.: 15 Coding Level of Care Code Est Pt Level 4 (53605) Complex EM visit Add On G2211 Diagnoses Multilevel degenerative disc disease M53.9 DISH (diffuse idiopathic skeletal hyperostosis) M48.10 Chronic arthritis M19.90 Additional Codes MARITZA-7 Assessment Billing - MARITZA-7 Assessment Tool: MARITZA-7 Assessment 55468 ([id number]) PHQ-9 - 16796 - PHQ-9 Billing: Yes ([id number]) Assessment & Plan Assessment & Plan (1) Multilevel degenerative disc disease: Code(s): M53.9 - Dorsopathy, unspecified Category: Medical Plan: The patient is diagnosed with multilevel degenerative disc disease, which is a chronic condition characterized by arthritis in the spine. The plan includes initiating physical therapy to improve flexibility and manage pain. (2) DISH (diffuse idiopathic skeletal hyperostosis): Code(s): M48.10 - Ankylosing hyperostosis [[place]], site unspecified Category: Medical Plan: The patient has diffuse idiopathic skeletal hyperostosis (DISH), leading to thickened ligaments and tendons along the spine. Physical therapy is recommended to enhance mobility and alleviate discomfort. (3) Chronic arthritis: Code(s): M19.90 - Unspecified osteoarthritis, unspecified site Category: Medical Plan: Chronic arthritis is present, contributing to the patient's back pain. Management includes physical therapy and monitoring for any changes in symptoms. Plan Plan Patient was informed and verbally consented to the use of an ambient scribe for clinic note documentation during this visit. 1. Multilevel Degenerative Disc Disease The patient is diagnosed with multilevel degenerative disc disease, which is a chronic condition characterized by arthritis in the spine. The plan includes initiating physical therapy to improve flexibility and manage pain. 2. Diffuse Idiopathic Skeletal Hyperostosis ([facility]) The patient has diffuse idiopathic skeletal hyperostosis (DISH), leading to thickened ligaments and tendons along the spine. Physical therapy is recommended to enhance mobility and alleviate discomfort. 3. Chronic Arthritis Chronic arthritis is present, contributing to the patient's back pain. Management includes physical therapy and monitoring for any changes in symptoms. During the consultation, I explained to the patient that her x-ray results indicate multilevel degenerative disc disease and diffuse idiopathic skeletal hyperostosis (DISH), both contributing to her chronic back pain. We discussed the benefits of physical therapy to improve flexibility and manage pain, and I recommended starting this treatment. I also provided reassurance that these findings are consistent with chronic conditions and not indicative of any acute or alarming issues. Patient Instructions: - Start physical therapy as recommended to improve flexibility and manage pain. - Monitor for any changes in symptoms and report if pain worsens or new symptoms develop. - Use the inhaler as prescribed if needed for muscle pain relief.
== END 2024-10-05 15:05 | disposition home or self-care (01) ==
LOC: HO.HMCSH 14:57
PROVIDERS: PCP Physician Assistant Medical; Visit Provider Physician Assistant Medical
DX: M53.9 Dorsopathy, unspecified (principal); M48.10 Ankylosing hyperostosis [Forestier], site unspecified; M19.90 Unspecified osteoarthritis, unspecified site

== ENCOUNTER 2024-10-22 09:38 | Outpatient (AMB) | payer OTHER, SELFPAY ==
--- OUTSIDE RECORDS SUMMARY | 2024-08-05 09:00 | XMS_ITS ---
Author Organization [facility] Address [address] [place] [address] Care Team Providers Care Environmental Sampler Name Role Phone Javier WOOD, Ronni Primary Care Provider UnavailLeonarda Garcia [facility] [phone] Encounters Encounter Location Date Provider Diagnosis [facility] [address] [place] [address] 08/05/2024 Leonarda Martinez Plan Of Treatment No Information Progress Notes * Radha CAMERONDOB:1960 (64 yo F)Acc No.[id number]:08/05/2024 Progress Notes Patient: Radha RUELAS Provider: Es Martinez DPM :1960 A ge:64 Y S ex:Female Date:08/05/2024 Address:[facility] [address] , [facility] Pcp:Ronni Herrera MD Subjective: * Chief Complaints: [...] Date: 08/05/2024 Generated for Sanju maria/Julia/Innaitting on: 10/22/2024 11:16 AM EDT
--- NOTE | 2024-10-22 09:40 | MHC.OFFVIS ---
Vital Signs 10/22/24 09:46 Height 4 ft 11 in Weight 199 lb 4.766 oz BMI 40.2 BP 112/71 Blood Pressure Location Lt brachial Position Sitting Pulse 78 Intake Visit Reasons: Follow up CT scan Intake Note: Radha presents to in office follow up for CT scan results. CC: Patient denies having any GI symptoms or concerns today. 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 Services: Jewel Hole Finish Opener Offered & Declined Jewel Hole Finish Opener Name: Pt's son Accompanied by: Son Allergies No Known Allergies Allergy (Verified 10/22/24 09:55) HPI HPI Follow up CT scan: Details: Assessment & Plan (1) GERD (gastroesophageal reflux disease): Code(s): K21.9 - Gastro-esophageal reflux disease without esophagitis Category: Medical (2) Cholelithiasis: Comment: With sludge on 10/2023 ultrasound but patient does not have symptoms at this time Code(s): K80.20 - Calculus of gallbladder without cholecystitis without obstruction Category: Medical Plan The CT is Saturday, apparently they showed up for it a couple of weeks ago but they said you did not get the drink? Usually, recently, this was being done in hospital r/t insurance coverage. I will send it, but they have cost concerns and I don't know the [place]. I will have my staff call [facility] and see and call radiology to arrange. ROV after CT She stopped the creon because it caused CIC and ga Medications: New barium sulfate 2%(w/v) (Readi-Cat 2) 300 mL PO ONCE 300 mL 0RF 1 day NOTE FROM 07/10/2028 Indian # son translates per patient request She is here today with her son who translates. He says that her epigastric pain now is more intermittent and they credits this to discovering dietary triggers that she needs to avoid. Apparently these triggers are overly greasy foods, as would be expected, and overly spicy foods. With this in the pantoprazole she has been feeling somewhat better. She never tried the Reglan so will take this off her list. She does have gallbladder sludge so I educate them a this would particularly set off the gallbladder and she may benefit from a trial of Creon to help rest the gallbladder in case she does have some dietary indiscretions. She is agreeable to trying this. Apparently the son says that his mother is very focused on doing a ?whole-body scan? to find out if everything is all right. I let them know that you can not just order that and have insurance pay for it without good clinical indications. However, we can probably get a CAT scan of the abdomen and pelvis given her ongoing problems with abdominal pain. However, I let them know that I think that the known finding of gallbladder sludge is as much the problem is anything else. We will continue her pantoprazole 40 mg twice a day. Return office visit in [address] ABDOMEN AND PELVIS 09/07/2024 FINDINGS: LOWER CHEST: The visualized lung bases are clear. There is no pleural effusion. CARDIOVASCULATURE: The heart is normal in size. There is no pericardial effusion. LIVER: The liver is normal in size and contour. No liver mass is identified. The hepatic and portal veins are patent. GALLBLADDER / BILE DUCTS: The gallbladder is unremarkable. There is no intra or extrahepatic biliary ductal dilatation. SPLEEN: The spleen is normal in size. No focal splenic lesion is identified. PANCREAS: The pancreas is unremarkable in appearance. ADRENAL GLANDS: Within normal limits. KIDNEYS/RETROPERITONEUM: No renal calculi are identified. There is no hydronephrosis. No renal masses are identified. LYMPH NODES: No abdominal or pelvic lymphadenopathy. VASCULATURE: The abdominal aorta is normal in caliber. MESENTERY/PERITONEUM: No free fluid. No masses. There is no free intraperitoneal gas. STOMACH: The stomach is collapsed, limiting evaluation. SMALL BOWEL: The small bowel is normal in caliber. COLON: The colon is unremarkable. APPENDIX: Normal. URINARY BLADDER/PELVIC ORGANS: The urinary bladder is collapsed, limiting evaluation. The uterus is unremarkable. BONES / SOFT TISSUES: There is a small fat-containing umbilical hernia. There is degenerative disc disease of the spine. CT/CT abdomen pelvis w IV con IMPRESSION: Small fat-containing umbilical hernia. Otherwise unremarkable contrast-enhanced CT of the abdomen and pelvis. TODAY'S VISIT Indian # PFSH Medical History (Updated 10/22/24 @ 16:22 by BABAR Byrd) Generalized abdominal pain Upper abdominal pain History of Helicobacter pylori infection Osteopenia (~01/07/24) Lower back pain Establishing care with new doctor, encounter for Chronic arthritis DISH (diffuse idiopathic skeletal hyperostosis) Multilevel degenerative disc disease Osteopenia determined by dual energy x-ray photon absorptiometry (DEXA) scan of hip (~01/07/24) History of mammogram (~01/07/24) Hepatomegaly Morbid obesity with BMI of 40.0-44.9, adult Hypertension Hyperlipidemia Type 2 diabetes mellitus with hemoglobin A1c goal of less than 7.0% Surgical History Status post total left knee replacement H/O colonoscopy History of esophagogastroduodenoscopy (EGD) Family History Father Cancer of lung Mother Arthritis Social History Household Members: Family Housing: Apartment Alcohol intake: current Alcohol intake frequency: does not drink Patient Tobacco Use Status: Never used Tobacco service: No Current occupational status: retired Cognitive needs: Yes (walker) Hearing needs: No Vision needs: Yes (reading glasses) Review of Systems Const Denies fatigue, Denies fever(s), Denies night sweats, Denies poor appetite and Denies weight loss ENT Reports Normal hearing present, Denies dental pain, Denies dysphagia, Denies hearing loss, Denies mouth pain, Denies odynophagia, Denies throat swelling, Denies tongue swelling and Reports other (Dentition adequate) Card Reports no additional complaints Resp Reports no additional complaints GI Details: Denies abdominal pain, Denies melena, Denies bloating, Denies hematochezia, Denies constipation, Denies GI cramping, Denies dysphagia, Denies excessive flatus, Denies early satiety, Reports heartburn, Denies diarrhea, Denies nausea, Denies odynophagia, Denies vomiting and Denies hematemesis Skin/Breast Denies pruritus, Denies lesions, Denies rash and Denies jaundice Neuro Reports Normal hearing present and Denies Abnormal speech present Endo Denies fatigue Aller/Immun Denies throat swelling and Denies tongue swelling Physical Exam Vital Signs: Last Vital Signs Pulse 78 10/22/24 09:46 BP 112/71 10/22/24 09:46 BMI result Body Mass Index 40.2 Const General: cooperative, no acute distress, well developed and well groomed Nutritional Appearance: well nourished and obese Orientation/consciousness: oriented to person, oriented to place and oriented to time Limitations: language barrier and ambulation with walker HEENT Head: Yes normocephalic and Yes atraumatic Eyes General: appearance normal, both eyes and all related structures Pupils: Equal, round and reactive pupils present Neck Neck: Yes normal visual inspection and Yes no lymphadenopathy Thyroid: Thyroid normal Resp Effort & Inspection: normal respiratory effort and able to speak in complete sentences Auscultation: clear to auscultation bilaterally Cardio Rate: regular rate Rhythm: regular rhythm Heart sounds: Normal, physiologic split S2 sound present Peripheral pulses: radial pulses present and posterior tibial pulses present GI Inspection: No distended and No Abdominal panniculus present Palpation (GI): Soft to palpation, nontender, no guarding, not rigid, No hepatosplenomegaly present and Hepatosplenomegaly present Percussion: Yes normal to percussion Auscultation: normal bowel sounds Rectal Exam - Female: deferred Skin General skin exam: no rashes or lesions noted, turgor normal, skin not dry, no jaundice, No spider nevi and no striae Rashes: no rashes Nails: normal Neuro General: oriented to person, oriented to place and oriented to time Cranial nerves: Yes Equal, round and reactive pupils present and Yes Normal hearing present Speech: No Abnormal speech present Extrem General: Yes normal to inspection, No clubbing, No cyanosis and No edema Psych Appearance: grossly normal and well kempt Mental Status: mental status grossly normal Speech and movement: Normal speech and movement present Affect: normal affect Attitude: cooperative Thought process: Normal thought process present and not confabulating Thought content: Normal thought content present Insight: Fair insight present (Psych) and Limited insight present (Psych) Judgement: Fair judgement present (Psych) and Limited judgement present (Psych) Assessment & Plan Assessment & Plan (1) Cholelithiasis: Comment: With sludge on 10/2023 ultrasound PATIENT MAY HAVE SYMPTOMS WITH FATTY OR FOODS THAT THIS IS NOT ENTIRELY CERTAIN, and they are mild Code(s): K80.20 - Calculus of gallbladder without cholecystitis without obstruction Category: Medical (2) GERD (gastroesophageal reflux disease): Code(s): K21.9 - Gastro-esophageal reflux disease without esophagitis Category: Medical Plan Indian # son translates per patient request She continues to do well managing her GERD with twice a day pantoprazole and avoiding dietary triggers. Avoiding of the dietary triggers really has been the biggest thing that has helped her with her abdominal pain. We review the CAT scan in the fact that it finds no significant pathology except for a very small umbilical hernia containing only fat is reassuring to her. They ask whether that hernia can get bigger over time, and I tell her generally it will not unless she gains a lot of weight and the fat pushes out and gets the weekend muscle wall. She would know if it is time to think about repairing it if she develops pain, but at this point no surgeon would want to do a repair with its relatively small size and lack of symptoms. Return office visit in 6 months Medications: Refilled pantoprazole 40 mg PO BID 60 tabs 6RF K21.9 - Gastro-esophageal reflux disease without esophagitis Coding Level of Care Code Est Pt Level 3 (05756) Diagnoses Cholelithiasis K80.20 GERD (gastroesophageal reflux disease) K21.9
[2024-10-22 09:46] VITALS: BP 112/71; PULSE 78; BMI 40.2
--- OUTSIDE RECORDS SUMMARY | 2024-10-22 11:17 | XMS_ITS | Patient Health Record ---
Demographics Address [address] [place] [address] Preferred Language en Marital Status Unknown Mosque Affiliation Unknown Race Unknown Ethnic Group Unknown Author Organization [facility] Address [address] [place] [address] Care Team Providers Care Director Of Volunteer Services Name Role Phone Javier WOOD, Ronni Primary Care Provider UnavailLeonarda Garcia Unavailable [phone] Reason For Referral No Information Encounters Encounter Location Date Provider Diagnosis [facility] [address] [place] [address] 08/03/2024 Leonarda Martinez Plan Of Treatment No Information Insurance Providers Payer Name Payer Address Payer Phone Subscriber Number Group Number Insured Name Patient Relationship to Insured Coverage Start Date Coverage End Date [facility] [place] [employer] Claims [address] JAREN Lerner [id number] LesleeRadha Self - patient is the insured
== END 2024-10-22 10:32 | disposition home or self-care (01) ==
LOC: HO.HGI 09:39
PROVIDERS: PCP Physician Assistant Medical; Visit Provider Nurse Practitioner
DX: K80.20 Calculus of gallbladder without cholecystitis without obstruction (principal); K21.9 Gastro-esophageal reflux disease without esophagitis
CPT/HCPCS: 99213

== ENCOUNTER → 2024-10-22 09:38 | Outpatient (BNVA) | payer OTHER, SELFPAY | PROVIDERS: PCP Physician Assistant Medical; Visit Provider Nurse Practitioner | DX: K21.9 Gastro-esophageal reflux disease without esophagitis (principal); K80.20 Calculus of gallbladder without cholecystitis without obstruction | CPT/HCPCS: 99212 ==

== ENCOUNTER 2024-12-10 08:52 | Outpatient (AMB) | payer OTHER, SELFPAY ==
--- OUTSIDE RECORDS SUMMARY | 2024-08-05 09:00 | XMS_ITS ---
Author Organization [facility] Address [address] [place] [address] Care Team Providers Care Business Law Professor Name Role Phone Javier WOOD, Ronni Primary Care Provider UnavailLeonarda Garcia [facility] [phone] Encounters Encounter Location Date Provider Diagnosis [facility] [address] [place] [address] 08/05/2024 Leonarda Martinez Plan Of Treatment No Information Progress Notes * Radha CAMERONDOB:1960 (64 yo F)Acc No.[id number]:08/05/2024 Progress Notes Patient: Radha RUELAS Provider: Es Martinez DPM :1960 A ge:64 Y S ex:Female Date:08/05/2024 Address:[facility] [address] , [facility] Pcp:Ronni Herrera MD Subjective: * Chief Complaints: * * Medical History: Objective: * Vitals: Assessment: Plan: * Treatment: * Images: * The named appointment provid er may or may not be the originator of this progress note, and it is not deemed complete until electronically signed by the appointment provider. Sign off status: Pending * Provider: Es Martinez DPM Date: 0 08/05/2024 Generated for Sanju maria/Julia/Han on: 09:51 AM EDT
[2024-12-10 09:15] VITALS: BP 94/51; PULSE 62; RESP 16; TEMP 36.8; O2SAT 99; BMI 40.2
--- NOTE | 2024-12-10 09:15 | MHC.PC.OV ---
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: No Accompanied by: Son Allergies No Known Allergies Allergy (Verified 12/10/24 11:46) Medication List - Last Reconciled 12/10/24 by Meredith Mosley PA-C albuterol sulfate 2.5 mg (6 mL) inhalation Q4-6H PRN albuterol sulfate 90 mcg/actuation inhalation amoxicillin-pot clavulanate 875-125 mg 1 tab PO BID 10 days aspirin 1 tab PO DAILY atorvastatin 20 mg PO DAILY codeine-guaifenesin 10-100 mg/5 mL 5 mL PO Q6H PRN commode (bedside commode) Bedside commode to be used daily for using the bathroom dulaglutide 4.5 mg (0.5 mL) subcut QWEEK empagliflozin (Jardiance) 10 mg PO QAM fluticasone propionate 50 mcg/actuation sprays intranasal gabapentin 300 mg PO TID PRN 90 days hydrochlorothiazide 25 mg PO DAILY insulin glargine (Lantus Solostar U-100 Insulin) 20 units subcut latanoprost 0.005% 1 drp ophthalmic (eye) QPM lisinopril 20 mg PO DAILY 90 days naproxen 500 mg PO BID PRN 90 days nebulizers (AeroEclipse XL Nebulizer) use as needed for sob/wheezing pantoprazole 40 mg PO BID pen needle, diabetic Check glucose 3 times a day with meals Tobacco use date assessed: 08/12/24 Dental Screening Dental Screen Date: 08/12/24 HPI Office visit HPI Details The patient is a 64-year-old female presenting for management of chronic conditions and evaluation of a cough. She reports being recently ill with a cough, which resolved after one week but then recurred two weeks ago. Regarding her diabetes, her recent HbA1c was 7.5%, which is an increase from her previous value of 6.8%. Her current diabetes medication regimen includes Trulicity 3 mg weekly, Jardiance 10 mg daily, and Lantus 20 units at bedtime. She was previously on Ozempic but was switched to Trulicity due to pharmacy availability issues. Her medical history is also significant for hypertension, for which she takes lisinopril. Social History - The patient attends [employer] Medical History (Updated 12/10/24 @ 11:49 by Meredith Mosley PA-C) Healthcare maintenance Cough Generalized abdominal pain Upper abdominal pain History of Helicobacter pylori infection Osteopenia (~01/07/24) Lower back pain Establishing care with new doctor, encounter for Chronic arthritis DISH (diffuse idiopathic skeletal hyperostosis) Multilevel degenerative disc disease Osteopenia determined by dual energy x-ray photon absorptiometry (DEXA) scan of hip (~01/07/24) History of mammogram (~01/07/24) Hepatomegaly Morbid obesity with BMI of 40.0-44.9, adult Hypertension Hyperlipidemia Type 2 diabetes mellitus with hemoglobin A1c goal of less than 7.0% Surgical History Status post total left knee replacement H/O colonoscopy History of esophagogastroduodenoscopy (EGD) Family History Father Cancer of lung Mother Arthritis Social History Household Members: Family Housing: Apartment Alcohol intake: current Alcohol intake frequency: does not drink Patient Tobacco Use Status: Never used Tobacco service: No Current occupational status: retired Cognitive needs: Yes (walker) Hearing needs: No Vision needs: Yes (reading glasses) Questionnaire PHQ-9 Over the last 2 weeks, how often have you been bothered by any of the following problems? 1. Little interest or pleasure in doing things: not at all 2. Feeling down, depressed, or hopeless: not at all 3. Trouble falling or staying asleep, or sleeping too much: not at all 4. Feeling tired or having little energy: not at all 5. Poor appetite or overeating: not at all 6. Feeling bad about yourself - or that you are a failure or have let yourself or your family down: not at all 7. Trouble concentrating on things, such as reading the newspaper or watching television: not at all 8. Moving or speaking so slowly that other people could have noticed. Or the opposite - being so fidgety or restless that you have been moving around a lot more than usual: not at all 9. Thoughts that you would be better off or of hurting yourself in some way: not at all Total score: 0 Depression Screening Interpretation: Negative Depression Screening Done: Yes 66167 - PHQ-9 Billing: Yes Source: Developed by Drs. Zev Ferro, Katie Cavanaugh, Aquiles Kennedy and colleagues, with an educational marycarmen from [employer]. Thrive Questionnaire Date Thrive assessed: 08/12/24 I am a: Patient What is your living situation today?: I have a steady place to live Within the past 12 months, did the food you bought not last and you didn't have the money to get more?: Never true Within the past 12 months, did you worry whether your food would run out before you got money to buy more?: Never true Do you have trouble paying for medicines?: No Do you have trouble getting transportation to medical appointments?: No Do you have trouble paying your heating and electricity bill?: No Do you have trouble taking care of your child, family member or friend?: No Do you have trouble with day-to-day activities such as bathing, preparing meals, shopping, managing finances, etc.?: No Are you currently unemployed and looking for a job?: No Are you interested in more education?: No Please select the resources that you would like help with: None THRIVE Score: 0 AUDIT C Alcohol Use Questionnaire (AUDIT-C) 1. How often do you have a drink containing alcohol?: Never 3. How often do you have six or more drinks on one occasion?: Never Total Score: 0 Score Reviewed/Action Taken: No MARITZA-7 AMB Questionnaire MARITZA-7 Date MARITZA - 7 assessed: 08/12/24 Feeling nervous, anxious, or on edge: 0 = Not at all Not being able to stop or control worryin = Not at all Worrying too much about different things: 0 = Not at all Trouble relaxin = Not at all Being so restless that it is hard to sit still: 0 = Not at all Becoming easily annoyed or irritable: 0 = Not at all Feeling afraid as if something awful might happen: 0 = Not at all Total MARITZA-7 score (0-4 normal; 5-9 mild; 10-14 moderate; 15-21 severe): 0 Source: Developed by Drs. Zev Ferro, Katie Cavanaugh, Aquiles Kennedy and colleagues, with an educational marycarmen from [employer]. MARITZA-7 Assessment Billing MARITZA-7 Assessment Tool: MARITZA-7 Assessment 60178 Review of Systems Const Details: - Respiratory: Reports a recurrent cough and shortness of breath. All systems reviewed & are unremarkable except as noted in HPI and below Physical exam (Primary Care) Vital Signs: Last Vital Signs Temp 98.2 F 12/10/24 09:15 Pulse 62 12/10/24 09:15 Resp 16 12/10/24 09:15 BP 94/51 L 12/10/24 09:15 Pulse Ox 99 12/10/24 09:15 Oxygen Delivery Method Room Air 12/10/24 09:15 Care Plan Goal for BP management: <140/90 at Goal BMI result Body Mass Index 40.2 BMI Assessment/Plan discussion: High BMI High, discussed plan: lifestyle, weight reduction, dietary, physical activity, alcohol moderation and other Tobacco/Smoking Status: Tobacco use Status Tobacco use date assessed 08/12/24 12/10/24 09:16 Patient Tobacco Use Status Never used Tobacco 12/10/24 09:16 PHQ-9: PHQ-9 Score PHQ-9: Total score 0 12/10/24 09:43 Depression Screening Interpretation: Negative Thrive Assessment: Date of Thrive Assessment Date Thrive assessed 08/12/24 12/10/24 09:16 Const Other: Appearance: Alert. Oriented X3. No acute distress. Head: Normal external exam. Normocephalic. Atraumatic. Eyes: Pupils are equal, round, and reactive to light. Extraocular movements intact. Conjunctiva and sclera normal. Eyelids normal. Ears: External auditory canal normal. Tympanic membranes normal. Throat: Pharynx normal. Uvula midline. Moist mucous membranes. Neck: Normal inspection. Neck supple. Full range of motion. No adenopathy. No meningeal signs. No neck mass noted. Cardiovascular: Normal heart rate and rhythm. Heart sound normal. No murmurs noted. Pulses normal throughout. Respiratory: No respiratory distress. Painless inspiration. Breath sounds normal. No wheezes/rales/rhonchi noted. Chest nontender. No accessory muscle usage noted or decreased air movement noted. Back: Full range of motion noted. Skin: Skin warm and dry. Normal skin color. Extremities: No lower extremity edema. Extremities exhibit normal range of motion. Results AMB Hemoglobin A1c AMB Hemoglobin A1c 7.5 % Last Edit by EREN Bejarano on 12/10/24 09:44 Results Reviewed Results Reviewed: Laboratory Last Values Hgb A1c (Clinic) 7.5 % (4.0-6.0) H 12/10/24 09:43 - Labs: HbA1c is 7.5%, increased from a prior 6.8%. Coding Level of Care Code Est Pt Level 4 (69134) Complex EM visit Add On G2211 Diagnoses Type 2 diabetes mellitus with hemoglobin A1c goal of less than 7.0% E11.9 Cough R05.9 Hypertension I10 Healthcare maintenance Z00.00 Additional Codes MARITZA-7 Assessment Billing - MARITZA-7 Assessment Tool: MARITZA-7 Assessment 43553 ([id number]) PHQ-9 - 60691 - PHQ-9 Billing: Yes ([id number]) Time Spent (min) 45 Assessment & Plan Assessment & Plan (1) Type 2 diabetes mellitus with hemoglobin A1c goal of less than 7.0%: Code(s): E11.9 - Type 2 diabetes mellitus without complications Category: Medical Plan: The patient's HbA1c has risen from 6.8% to 7.5%, indicating a need for medication adjustment. The plan is to increase her Trulicity dose from 3 mg to 4.5 mg. The prescription will be sent to [facility] due to persistent availability issues [facility]. She will continue her current dosages of Jardiance 10 mg and Lantus 20 units at bedtime. Fasting labs will be ordered. The patient is scheduled for a 3-month follow-up visit to monitor her diabetes. (2) Cough: Code(s): R05.9 - Cough, unspecified Category: Medical Plan: The patient reports a recurrent cough, though her lungs are clear on examination. To rule out underlying pathology, a chest X-ray will be ordered, which she can have done at her convenience. A prescription for a nebulizer machine and its supplies will be provided, with instructions that it may need to be filled at a medical supply store. (3) Hypertension: Code(s): I10 - Essential (primary) hypertension Category: Medical Plan: The patient is on lisinopril for hypertension. She will continue her current medication regimen without changes. (4) Healthcare maintenance: Code(s): Z00.00 - Encounter for general adult medical examination without abnormal findings Category: Medical Plan: The patient is advised to take a daily probiotic to support gut antonia. Plan Plan Patient was informed and verbally consented to the use of an ambient scribe for clinic note documentation during this visit. 1. Type 2 Diabetes Mellitus The patient's HbA1c has risen from 6.8% to 7.5%, indicating a need for medication adjustment. The plan is to increase her Trulicity dose from 3 mg to 4.5 mg. The prescription will be sent to [email or web address] due to [facility] issues [facility] She will continue her current dosages of Jardiance 10 mg and Lantus 20 units at bedtime. Fasting labs will be ordered. The patient is scheduled for a 3-month follow-up visit to monitor her diabetes. 2. Acute Cough The patient reports a recurrent cough, though her lungs are clear on examination. To rule out underlying pathology, a chest X-ray will be ordered, which she can have done at her convenience. A prescription for a nebulizer machine and its supplies will be provided, with instructions that it may need to be filled at a medical supply store. 3. Hypertension The patient is on lisinopril for hypertension. She will continue her current medication regimen without changes. 4. Health Maintenance The patient is advised to take a daily probiotic to support gut antonia. I discussed the patient's recent lab results, noting the increase in her HbA1c to 7.5% from 6.8%. To address this, I explained the rationale for increasing her Trulicity dose to 4.5 mg and confirmed she will continue her other diabetes medications as prescribed. We addressed the medication availability issues she has been facing, and I agreed to send the prescription to [email or web address]. Regarding her recurrent cough, I informed her that although her lung exam was clear today, I am ordering a chest X-ray for further evaluation. I also provided a prescription for a nebulizer machine and explained that it may need to be obtained from a medical supply company. I advised her on the need for fasting labs and clarified that black coffee without cream or sugar is acceptable before the blood draw. I recommended she start taking a daily probiotic to support her gut health. We agreed on a follow-up appointment in three months to reassess her diabetes management. Orders: Orders AMB Hemoglobin A1c Today E11.9 - Type 2 diabetes mellitus without complications XR chest 2V Today R05.9 - Cough, unspecified Medications: New codeine-guaifenesin 10-100 mg/5 mL 5 mL PO Q6H PRN 120 mL 0RF cough albuterol sulfate 2.5 mg (6 mL) inhalation Q4-6H PRN 90 mL 3RF shortness of breath or wheezing nebulizers (AeroEclipse XL Nebulizer) use as needed for sob/wheezing 1 ea 1RF R05.9 - Cough, unspecified codeine-guaifenesin 10-100 mg/5 mL 5 mL PO Q6H PRN 120 mL 0RF cough amoxicillin-pot clavulanate 875-125 mg 1 tab PO BID 20 tabs 0RF 10 days nebulizers (AeroEclipse XL Nebulizer) use as needed for sob/wheezing 1 ea 1RF R05.9 - Cough, unspecified Changed From dulaglutide (Trulicity) mg subcut QWEEK E11.9 - Type 2 diabetes mellitus without complications To dulaglutide 4.5 mg (0.5 mL) subcut QWEEK 2 mL 0RF E11.9 - Type 2 diabetes mellitus without complications Patient Instructions: - Increase your Trulicity dose to 4.5 mg once weekly as prescribed. - Continue taking Jardiance 10 mg daily and Lantus 20 units at bedtime. 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 [address] [facility] in [place], as your usual pharmacy has had trouble keeping it in stock. - Take one probiotic supplement every day to help with your digestive health. - Please go for a chest X-ray and get your blood work done. - The labs and X-ray can be done on the weekend if that is more convenient. - For your blood work, you must be fasting. You may drink black coffee with no cream, sugar, or milk. - We have given you a prescription for a nebulizer machine. You may need to go to a special medical supply store to get it filled. - Please schedule a follow-up appointment for three months from now.
--- OUTSIDE RECORDS SUMMARY | 2024-12-10 09:52 | XMS_ITS | Encounter Summary ---
Demographics Address [address] [place] [address] Phone [phone] Preferred Language Unknown Marital Status Unknown Caodaism Affiliation Unknown Race Unknown Ethnic Group Unknown Author Organization [facility] Address [address] [place] [address] Encounters * CPT with Medical [facility] at [email or web address] on 2024-12-06 { reasonForRequest : Patient has Chest pain, and can not spit, dry mouth. ,&quo t;patientReports : , denies :[ Increased work of breathing/labored with or without fever , Unable to speak in full sentences without distress , D iscoloration of skin -cyanosis , Needs to sleep sitting up, can t catch breath ,"Shortness of breath in setting of confusion ], chiefComplaints : Chest Pain,Cough , pmh : Diabetes Mellitus Type 2, Hypertension , allergies : No Known Drug Allergies , otherAllergies : , painAssessment&qu ot;: , visitOutcome : , additionalComments : Additional PMH: Arthritis\n64 y.o female complains of Chest Pain, Cough\nPatient's niece calling reporting patient has been coughing for approx one week and is having chest discomfort from the coughing. Niece also reports patient feels like she needs to spit up mucous but cannot. Niece states patient has tried cold and flu medication, as well as something for mucus without relief. Patient also reports taking Tylenol and Benzonatate. Patient denies measured measured fevers but endorsing chills. Patient denies difficulty breathing, patient heard speaking in full, complete sentences at time of call. Patient reports sleeping in recliner due to cough. I provided information on the mobile health providerresponse time and advised the patient and/or caregiver to monitor reported signs and symptoms. I discussed the warning signs of when to seek emergency care -Tabitha Vicente RN } Encountered patient seated upright and conscious with family present. Patient reports she has been experiencing a non-productive cough for approximately one week. Patient denies chest pain at rest, but does experience soreness in her ribs while coughing, shortness of breath and fevers. During interview patient exhibited a productive cough x1 ,throughout several coughing spells, which yielded clear sputum. POCT COVID and Flu swabs performed, both resulted negative; [facility] notified. Skin warm dry and of appropriate color for ethnicity. Head and neck free of trauma and edema. ??? JVD. Breath sounds present, clear and equal bilaterally. Abdomen is soft, non-tender and non-distended. Extremities free of trauma and edema. [facility] contacted: duoneb treatment x1 administered after medication ???rights?? were reconciled with patient. [facility] additionally states they will be sending a prescription for further treatment to a pharmacy of patient???s choice. Patient was encouraged to monitor herself for worsening symptoms as wellas chest pain or shortness of breath, but was also advised that if her symptoms were not to improvewithin the next several days that she would likely require a chest x-ray for 'rule-outs.' Patient advised to seek further medical attention, including 911 if said symptoms were to develop. Patient verbalizes understanding of the plan and states she???s comfortable remaining home this evening. ORAL_MEDICATION, EKG, POC_FLU_STREP, COVID_TEST Written by Medical instED on 2024-12-06
--- OUTSIDE RECORDS SUMMARY | 2024-12-10 09:52 | XMS_ITS | Continuity of Care Document ---
Author Name instED, Medical Address [address] [place] [id number] Organization Unknown Address [address] [place] [id number] Medications No known medications Problems No known problems
--- OUTSIDE RECORDS SUMMARY | 2024-12-10 09:52 | XMS_ITS | Patient Health Record ---
Demographics Address [address] [place] [address] Preferred Language en Marital Status Unknown Spiritism Affiliation Unknown Race Unknown Ethnic Group Unknown Author Organization [facility] Address [address] [place] [address] Care Team Providers Care Upper Trimmer Name Role Phone Javier WOOD, Ronni Primary Care Provider UnavailLeonarda Garcia Unavailable [phone] Reason For Referral No Information Encounters Encounter Location Date Provider Diagnosis [facility] [address] [place] [address] 08/03/2024 Leonarda Martinez Plan Of Treatment No Information Insurance Providers Payer Name Payer Address Payer Phone Subscriber Number Group Number Insured Name Patient Relationship to Insured Coverage Start Date Coverage End Date [facility] [place] [employer] Claims [address] JAREN Lerner [id number] Radha Camilo Self - patient is the insured
== END 2024-12-10 10:09 | disposition home or self-care (01) ==
LOC: HO.HMCSH 08:52
PROVIDERS: PCP Physician Assistant Medical; Visit Provider Physician Assistant Medical
DX: E11.9 Type 2 diabetes mellitus without complications (principal); R05.9 Cough, unspecified; I10 Essential (primary) hypertension; Z00.00 Encounter for general adult medical examination without abnormal findings

== ENCOUNTER → 2024-12-10 08:52 | Outpatient (BNVA) | payer OTHER, SELFPAY | PROVIDERS: PCP Physician Assistant Medical; Visit Provider Physician Assistant Medical | DX: Z00.00 Encounter for general adult medical examination without abnormal findings (principal); E11.9 Type 2 diabetes mellitus without complications; R05.9 Cough, unspecified; I10 Essential (primary) hypertension; Z79.4 Long term (current) use of insulin; Z79.899 Other long term (current) drug therapy | CPT/HCPCS: 83036; 96127; 99212 ==

== ENCOUNTER 2024-12-14 14:07 | Outpatient (REF) | payer OTHER, SELFPAY ==
--- NOTE | ~2024-12-14 | XR_ITS ---
EXAMINATION: XR CHEST CLINICAL INFORMATION: R05.9 - Cough, unspecified COMPARISON: None available. TECHNIQUE: 2 views of the chest were obtained. FINDINGS: The cardiomediastinal silhouette is within normal limits. The lungs are well expanded. There is no focal consolidation, edema, or effusion. No pneumothorax. No acute osseous abnormality. Thoracic spine degeneration XR/XR chest 2V IMPRESSION: No acute pulmonary findings Electronically signed by: Addison Briggs MD 12/15/2024 07:22 AM [facility]
== END 2024-12-14 14:08 | disposition home or self-care (01) ==
LOC: HO.XRAY 14:07
PROVIDERS: PCP Physician Assistant Medical; Visit Provider Physician Assistant Medical
DX: R05.9 Cough, unspecified (principal)
CPT/HCPCS: 71046

== ENCOUNTER → 2024-12-14 14:11 | Outpatient (BNV) | payer OTHER, SELFPAY | PROVIDERS: PCP Physician Assistant Medical; Visit Provider Radiology Diagnostic Ultrasound | DX: R05.9 Cough, unspecified (principal) | CPT/HCPCS: 71046 ==

== ENCOUNTER 2025-01-12 09:43 | Outpatient (REF) | payer OTHER, SELFPAY ==
--- NOTE | ~2025-01-12 | MM_ITS ---
EXAMINATION: MM SCREENING DIGITAL BREAST TOMOSYNTHESIS, BILATERAL CLINICAL INFORMATION: Screening. Asymptomatic. COMPARISON: Mammography: Comparison is made with available priors TECHNIQUE: Digital breast mammography with tomosynthesis is performed in both the craniocaudal and mediolateral oblique views along with computer-aided detection (CAD). FINDINGS: There are scattered areas of fibroglandular density. There are no significant masses, abnormal calcifications, or other abnormalities. MM/MM tomosynthesis screening BI IMPRESSION: No mammographic evidence of malignancy. ASSESSMENT: BI-RADS Category 1: Negative RECOMMENDATION: Routine annual mammography screening. 1 year F/U This examination should not preclude the clinical evaluation of a suspicious palpable abnormality. This patient's information was entered into a reminder system with a target due date for their next mammogram. Electronically signed by: Yasmine Sanchez DO 01/12/2025 10:41 AM [facility]
== END 2025-01-12 09:44 | disposition home or self-care (01) ==
LOC: HO.MAMMO 09:43
PROVIDERS: PCP Physician Assistant Medical; Visit Provider Internal Medicine
DX: Z12.31 Encounter for screening mammogram for malignant neoplasm of breast (principal)
CPT/HCPCS: 77063; 77067

== ENCOUNTER → 2025-01-12 09:45 | Outpatient (BNV) | payer OTHER, SELFPAY | PROVIDERS: PCP Physician Assistant Medical; Visit Provider Internal Medicine | DX: Z12.31 Encounter for screening mammogram for malignant neoplasm of breast (principal) | CPT/HCPCS: 77063; 77067 ==